=== PATIENT | female | born 1955 | race Caucasian/White ===

== ENCOUNTER 2016-11-18 06:47 | Inpatient (IN) | payer MEDICARE, OTHER, MEDICAID ==
[2016-11-18] MEDS ORDERED: Lactated Ringers 1,000 ML IV SCH ×2 (07:00→11:45)
[2016-11-18] MEDS ORDERED: Gentamicin 40 MG/ML 2 ML Vial ONE (07:13)
[2016-11-18] MEDS ORDERED: Ropivacaine 49.25 ML, Ketorolac 30 MG, EPINEPHrine 0.5 MG, cloNIDine 80 MCG, Sodium Chl... INJECT SCH ×5 (07:45)
[2016-11-18] MEDS ORDERED: Povidone-Iodine 10% Soln 118.25 ML Bottle ONE (07:47)
[2016-11-18] MEDS ORDERED: Midazolam 1 MG/ML 2 ML SDV ONE (08:17)
[2016-11-18] MEDS ORDERED: Propofol 200 MG/20 ML SDV ONE (08:17)
[2016-11-18] MEDS ORDERED: fentaNYL 100 MCG/2 ML SDV ONE (08:17)
[2016-11-18] MEDS ORDERED: ceFAZolin 2 GM in Premix Bag 1 BAG IV ONE (08:30)
[2016-11-18] MEDS ORDERED: Succinylcholine/Normal Saline 200 MG/10 ML Syringe ONE (09:03)
[2016-11-18] MEDS ORDERED: Ondansetron 4 MG/2 ML SDV ONE (09:03)
[2016-11-18] MEDS ORDERED: Neostigmine Methylsulfate 1 MG/ML 5 ML Syringe ONE (09:03)
[2016-11-18] MEDS ORDERED: Dexamethasone 4 MG/ML SDV ONE (09:03)
[2016-11-18] MEDS ORDERED: Rocuronium 50 MG/5 ML Vial ONE (09:03)
[2016-11-18] MEDS: Tranexamic Acid 1,000 MG in Sodium Chloride 0.9% 50 ML IV SCH ×2 (09:15→11:35)
[2016-11-18] MEDS ORDERED: ePHEDrine 50 MG/ML SDV ONE (09:17)
[2016-11-18] MEDS ORDERED: fentaNYL 250 MCG/5 ML SDV ONE ×2 (09:28→10:39)
[2016-11-18] MEDS ORDERED: Lactated Ringers 1,000 ML ONE (10:58)
[2016-11-18] MEDS ORDERED: Magnesium Hydroxide 400 MG/5 ML Susp 30 ML Cup PO PRN ×2 (11:33→12:48)
[2016-11-18] MEDS ORDERED: Acetaminophen/oxyCODONE 325-5 MG Tab PO PRN ×2 (11:33→12:48)
[2016-11-18] MEDS ORDERED: Zolpidem 5 MG Tab PO PRN ×2 (11:33→12:48)
[2016-11-18] MEDS ORDERED: traMADol 50 MG Tab PO PRN (11:33)
[2016-11-18] MEDS ORDERED: diphenhydrAMINE 50 MG/ML SDV IVPUSH PRN ×2 (11:33→12:48)
[2016-11-18] MEDS ORDERED: Sennosides 8.6 MG Tab PO PRN ×2 (11:33→12:48)
[2016-11-18] MEDS ORDERED: Morphine 2 MG/ML Syringe IVPUSH PRN ×2 (11:33→12:48)
[2016-11-18] MEDS ORDERED: Bisacodyl 5 MG Tab PO PRN ×2 (11:33→12:48)
[2016-11-18] MEDS ORDERED: Ketorolac 30 MG/ML SDV IVPUSH PRN (11:33)
[2016-11-18] MEDS ORDERED: Aluminum Hydroxide/Magnesium Hydroxide/Simethicone Susp 30 ML Cup PO PRN ×2 (11:33→12:48)
[2016-11-18] MEDS ORDERED: Ondansetron 4 MG/2 ML SDV IVPUSH PRN ×2 (11:33→12:48)
[2016-11-18] MEDS ORDERED: Naloxone 0.4 MG/ML SDV IVPUSH PRN ×2 (11:33)
[2016-11-18] MEDS ORDERED: Docusate Sodium 100 MG Cap PO PRN ×2 (11:33→12:48)
[2016-11-18] MEDS ORDERED: fentaNYL 100 MCG/2 ML SDV IVPUSH ONE (11:55)
[2016-11-18] MEDS ORDERED: ceFAZolin 2 GM in Premix Bag 1 BAG IV SCH (12:00)
[2016-11-18] MEDS: Ketorolac 30 MG/ML SDV IVPUSH PRN ×2 (13:38→23:05)
--- NOTE | 2016-11-18 13:39 | CR ---
Knee 1V or 2V Rt HISTORY: POST TOTAL KNEE FINDINGS: Since the exam of 11/10/2016 there is replacement of a right total knee arthroplasty with p atellar resurfacing. Position and alignment are satisfactory. No complication is seen. Air in the uziel int is consistent with the postoperative state. Bony structures are osteopenic. IMPRESSION: Satisfactory postoperative position and alignment status post right total knee arthropla sty.
[2016-11-18] MEDS: traMADol 50 MG Tab PO PRN (14:54)
[2016-11-18] MEDS: ceFAZolin 2 GM in Sodium Chloride 0.9% 50 ML IV SCH ×2 (16:37→23:05)
--- NOTE | 2016-11-18 18:34 | PCM.CONS ---
H&P History of Present Illness - General Date of Service: 11/18/16 Admit Problem/Dx: Admission Diagnosis/Problem Admission Diagnosis/Problem Knee pain Source of Information: Patient, Provider, RN notes reviewed History Limitations: Reports: No limitations - History of Present Illness Initial Comments - Free Text/Narative: Ms. Menchaca is a 61-year-old woman who underwent a total right knee arthroplasty done earlier today by Dr. Lamar. She's done well during the initial postoperative period, although reports a significant amount of pain in the knee. There've been no symptoms of chest pain or pressure, shortness of breath , nausea or vomiting. Right Knee Pain Score (Numeric/FACES): 9 - Related Data Allergies/Adverse Reactions: Allergies Allergy/AdvReac Type Severity Reaction Status Date / Time acetaminophen Allergy Severe Arrhythmias Verified 11/18/16 07:17 morphine Allergy Severe Vomiting Verified 11/18/16 07:17 naloxone HCl [From Narcan] Allergy Severe Anaphylactic Verified 11/18/16 07:17 Shock adhesive tape Allergy Hives Verified 11/18/16 07:17 epinephrine Allergy Other Verified 11/18/16 14:58 [From Xylocaine-Epinephrine] erythromycin base Allergy Other Verified 11/18/16 07:17 lidocaine Allergy Other Verified 11/18/16 14:58 [From Xylocaine-Epinephrine] Home Medications: Home Meds lamoTRIgine [Lamictal] 200 mg PO DAILY 05/19/13 [History] amLODIPine [Norvasc] 2.5 mg PO DAILY 09/22/14 [History] Biotin 10 mg PO DAILY 01/31/16 [History] Naproxen Sodium [Aleve] 2 tab PO BID 01/31/16 [History] FLUoxetine [PROzac] 80 mg PO DAILY 06/16/16 [History] traZODone 50 mg PO ASDIRECTED PRN 06/16/16 [History] Chrom Blayne/Brindal Platt [Garcinia Cambogia Tablet] 1 each PO BID 11/14/16 [ History] LORazepam [Ativan] 1 mg PO ASDIRECTED PRN 11/14/16 [History] Pravastatin [Pravachol] 20 mg PO DAILY 11/14/16 [History] traMADol [Ultram] 50 mg PO DAILY PRN 11/14/16 [History] Aspirin [Ecotrin] 325 mg PO BID tab.ec 11/18/16 [Rx] Past Medical History HEENT History: Reports: Impaired vision Cardiovascular History: Reports: Arrhythmia, Blood clots/VTE/DVT, High cholesterol, Hypertension, SOB on exertion, Other (see below) Other Cardiovascular History: PE Respiratory History: Reports: Bronchitis, recurrent, PE, Pneumonia, recurrent, Sleep apnea, SOB Other Respiratory History: PE Gastrointestinal History: Reports: Bowel obstruction, Chronic constipation, Diverticulosis Genitourinary History: Reports: UTI, recurrent [employer] History: Reports: 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 uterine bleeding, , Spontaneous Musculoskeletal History: Reports: Fracture, Osteoarthritis Neurological History: Reports: Cerebral aneurysms, Concussion, CVA, Headaches, chronic, Migraines, Seizure Psychiatric History: Reports: Anxiety, Depression, Panic attack, Psych Hospitalization(s), Suicide attempt Endocrine/Metabolic History: Reports: Obesity/BMI 30+ Hematologic History: Reports: Anemia, Iron deficiency Dermatologic History: Reports: Urticaria - Infectious Disease History Infectious Disease History: Reports: Chicken pox, Measles, Mumps - Past Surgical History HEENT Surgical History: Reports: Tonsillectomy Cardiovascular Surgical History: Reports: Other (see below) Other Cardiovascular Surgeries/Procedures: angiogram Respiratory Surgical History: Reports: None GI Surgical History: Reports: Colonoscopy, EGD Female Surgical History: Reports: section, Hysterectomy, Salpingo- oophorectomy Endocrine Surgical History: Reports: None Neurological Surgical History: Reports: Other (see below) Other Neurological Surgeries/Procedures: x5 aneurysm clips in brain Musculoskeletal Surgical History: Reports: Carpal tunnel, Knee replacement Social & Family History - Tobacco Use Smoking Status *Q: Never Smoker Second Hand Smoke Exposure: No - Caffeine Use Caffeine Use: Reports: Coffee, Soda - Alcohol Use Days Per Week of Alcohol Use: 0 - Recreational Drug Use Recreational Drug Use: No H&P Review of Systems - Review of Systems: Review Of Systems: See Below General: Denies: fever, chills, weakness HEENT: Reports: no symptoms Pulmonary: Reports: No Symptoms Cardiovascular: Reports: no symptoms Gastrointestinal: Reports: No symptoms Genitourinary: Reports: no symptoms Musculoskeletal: Reports: leg pain, joint pain Skin: Reports: no symptoms Psychiatric: Reports: no symptoms Neurological: Reports: No Symptoms Hematologic/Lymphatic: Reports: no symptoms Immunologic: Reports: no symptoms Exam - Exam Exam: See Below - Vital Signs Vital Signs: Last Vital Signs Temp 99.0 F 11/18/16 15:15 Pulse 86 11/18/16 15:15 Resp 18 11/18/16 15:15 BP 122/68 11/18/16 15:15 Pulse Ox 93 L 11/18/16 15:15 Weight: 279 lb 2 oz - Exam Quality Assessment: DVT prophylaxis General: alert, oriented, cooperative, mild distress Neck: supple, trachea midline, +2 carotid pulse wo bruit Lungs: Clear to auscultation, Normal respiratory effort Cardiovascular: regular rate, regular rhythm, normal S1, normal S2. No: systolic murmur, diastolic murmur Abdomen: normal bowel sounds, soft Skin: warm, dry, intact - Patient Data Lab Results last 24 hrs: Laboratory Results - last 24 hr 11/18/16 Range/Units 07:00 Blood Type O POSITIVE Gel Antibody Screen Negative Consult PN Assessment/Plan Procedures: Procedures ASSAY OF AMYLASE (09/22/14) ASSAY OF LIPASE (10/16/15) BLOOD TYPING SEROLOGIC ABO (11/10/16) BLOOD TYPING SEROLOGIC RH(D) (11/10/16) COMP SCREEN MAMMOGRAM ADD-ON (01/10/16) COMPLETE CBC W/AUTO DIFF WBC (11/10/16) COMPREHEN METABOLIC PANEL (11/10/16) CT ABD & PELVIS W/O CONTRAST (10/16/15) CT HEAD/BRAIN W/O DYE (09/22/14) CULTURE OTHR SPECIMN AEROBIC (11/10/16) EMERGENCY DEPT VISIT (06/16/16) EMERGENCY DEPT VISIT (10/16/15) EMERGENCY DEPT VISIT (09/22/14) EMERGENCY DEPT VISIT (09/22/14) EMERGENCY DEPT VISIT (05/19/13) EXTREMITY STUDY (05/19/13) RBC ANTIBODY SCREEN (11/10/16) ROUTINE VENIPUNCTURE (11/10/16) SKIN FULL GRAFT TRUNK (02/01/16) SMEAR GRAM STAIN (02/17/16) SPECIAL STAINS GROUP 1 (02/01/16) THER/PROPH/DIAG INJ SC/IM (10/16/15) TISSUE EXAM BY PATHOLOGIST (02/01/16) URINALYSIS AUTO W/O SCOPE (11/10/16) URINALYSIS AUTO W/SCOPE (10/16/15) WOUND PREP TRK/ARM/LEG (02/01/16) X-RAY EXAM OF ANKLE (06/16/16) X-RAY EXAM OF KNEE 3 (11/10/16) Problem List Initiated/Reviewed/Updated: Yes My Orders last 24 hours: My Active Orders 11/19/16 09:00 Biotin [Biotin] 10 mg PO DAILY FLUoxetine [PROzac] 80 mg PO DAILY Pravastatin [Pravachol] 20 mg PO DAILY amLODIPine [Norvasc] 2.5 mg PO DAILY lamoTRIgine [Lamictal] 200 mg PO DAILY Plan: ASSESSMENT AND PLAN STATUS POST TOTAL RIGHT KNEE ARTHROPLASTY-she's done well during the initial postoperative period -Postoperative care per Dr. Lamar HYPERTENSION -Continue outpatient medical regimen HISTORY OF DVT -DVT prophylaxis per Dr. Lamar Requesting Provider: YESICA Date Consult Requested: 11/18/16 Reason for Consult: Hospitalist consult for medical management, following RTKA Patient History Reviewed: Yes
[2016-11-18] MEDS: Lactated Ringers 1,000 ML IV SCH (19:23)
[2016-11-18] MEDS: Aspirin 325 MG Tab.EC PO SCH (20:06)
[2016-11-18] MEDS: fentaNYL 100 MCG/2 ML SDV IVPUSH PRN (20:07)
[2016-11-18] MEDS ORDERED: Aspirin 325 MG Tab.EC PO SCH (21:00)
[2016-11-19] MEDS: fentaNYL 100 MCG/2 ML SDV IVPUSH PRN ×2 (04:14→10:27)
[2016-11-19] MEDS: Lactated Ringers 1,000 ML IV SCH (05:58)
[2016-11-19] MEDS: traMADol 50 MG Tab PO PRN ×2 (08:14→17:32)
[2016-11-19] MEDS ORDERED: Sodium Chloride 0.9% 10 ML Syringe FLUSH SCH (09:00)
[2016-11-19] MEDS: ceFAZolin 2 GM in Sodium Chloride 0.9% 50 ML IV SCH (09:01)
[2016-11-19] MEDS: FLUoxetine 20 MG Cap PO SCH (09:02)
[2016-11-19] MEDS: lamoTRIgine 100 MG Tab PO SCH (09:02)
[2016-11-19] MEDS: Pravastatin 20 MG Tab PO SCH (09:02)
[2016-11-19] MEDS: Aspirin 325 MG Tab.EC PO SCH ×2 (09:03→20:38)
[2016-11-19] MEDS: amLODIPine 5 MG Tab PO SCH (09:03)
[2016-11-19] MEDS: BIOTIN 10 MG PO SCH (09:04)
[2016-11-19] MEDS: Sodium Chloride 0.9% 10 ML Syringe FLUSH SCH (09:04)
[2016-11-19] MEDS: Ketorolac 30 MG/ML SDV IVPUSH PRN ×2 (12:44→20:38)
--- NOTE | 2016-11-19 13:24 | PCM.CONSN ---
- General Info Date of Service: 11/19/16 Functional Status: Reports: pain controlled, tolerating diet, ambulating, urinating - Review of Systems General: Denies: Fever, Weakness, Chills Pulmonary: Reports: no symptoms Cardiovascular: Reports: No Symptoms Gastrointestinal: Reports: No symptoms Systems Review Comment:: This patient has remained stable status post total knee arthroplasty done yesterday by Dr. Lamar. Vital signs have been stable and she has remained afebrile. - Patient Data Vitals - most recent: Last Vital Signs Temp 99.8 F 11/19/16 11:00 Pulse 76 11/19/16 11:00 Resp 18 11/19/16 11:00 BP 101/60 11/19/16 11:00 Pulse Ox 98 11/19/16 11:00 Weight - most recent: 279 lb 2 oz I&O - last 24 hours: Intake & Output 11/18/16 11/19/16 11/19/16 22:59 06:59 14:59 Intake Total 922 1091 650 Output Total 650 1650 400 Balance 272 -559 250 Lab Results last 24 hrs: Laboratory Results - last 24 hr 11/19/16 11/19/16 Range/Units 05:01 05:02 WBC 13.1 H (4.5-11.0) K/uL RBC 4.08 (3.30-5.50) M/uL Hgb 11.4 L D (12.0-15.0) g/dL Hct 35.3 L (36.0-48.0) % MCV 87 (80-98) fL MCH 28 (27-31) pg MCHC 32 (32-36) % Plt Count 203 (150-400) K/uL Neut % (Auto) 78 H (36-66) % Lymph % (Auto) 13 L (24-44) % Whitman % (Auto) 9 H (2-6) % Eos % (Auto) 0 L (2-4) % Baso % (Auto) 0 (0-1) % Sodium 143 (140-148) mmol/L Potassium 4.3 (3.6-5.2) mmol/L Chloride 109 H (100-108) mmol/L Carbon Dioxide 29 (21-32) mmol/L Anion Gap 9.3 (5.0-14.0) mmol/L BUN 9 (7-18) mg/dL Creatinine 0.8 (0.6-1.0) mg/dL Est Cr Clr Drug Dosing 60.29 mL/min Estimated GFR (MDRD) > 60 (>60) Glucose 115 H (74-106) mg/dL Calcium 8.4 L (8.5-10.1) mg/dL Total Bilirubin 0.3 (0.2-1.0) mg/dL AST 16 (15-37) U/L ALT 15 (12-78) U/L Alkaline Phosphatase 83 (46-116) U/L Total Protein 5.6 L (6.4-8.2) g/dL Albumin 2.8 L (3.4-5.0) g/dL Globulin 2.8 (2.3-3.5) g/dL Albumin/Globulin Ratio 1.0 L (1.2-2.2) Med Orders - Current: Current Medications Al Hydroxide/Mg Hydroxide (Mag-Al Plus) 30 ml PO Q4H PRN PRN Reason: Constipation Amlodipine Besylate (Norvasc) 2.5 mg PO DAILY [facility] Last Admin: 11/19/16 09:03 Dose: 2.5 mg Aspirin (Ecotrin) 325 mg PO BID [facility] Last Admin: 11/19/16 09:03 Dose: 325 mg Bisacodyl (Dulcolax) 10 mg PO DAILY PRN PRN Reason: Constipation Diazepam (Valium) 5 mg IVPUSH Q6H PRN PRN Reason: Spasms Diphenhydramine HCl (Benadryl) 25 mg IVPUSH Q4H PRN PRN Reason: Itching Last Admin: 11/18/16 23:05 Dose: 25 mg Docusate Sodium (Colace) 100 mg PO BID PRN PRN Reason: Constipation Fentanyl (Sublimaze) 50 mcg IVPUSH Q6H PRN PRN Reason: Pain (severe 7-10) Last Admin: 11/19/16 10:27 Dose: 50 mcg Fluoxetine HCl (Prozac) 80 mg PO DAILY [facility] Last Admin: 11/19/16 09:02 Dose: 80 mg Ketorolac Tromethamine (Toradol) 30 mg IVPUSH Q8H PRN PRN Reason: Pain Stop: 11/23/16 11:33 Last Admin: 11/19/16 12:44 Dose: 30 mg Lamotrigine (Lamotrigine) 200 mg PO DAILY [facility] Last Admin: 11/19/16 09:02 Dose: 200 mg Magnesium Hydroxide (Milk Of Magnesia) 30 ml PO BID PRN PRN Reason: Constipation Ondansetron HCl (Zofran) 8 mg IVPUSH Q4H PRN PRN Reason: Nausea/Vomiting Biotin [Biotin] 10 (MgPom) 0 each PO DAILY [facility] Last Admin: 11/19/16 09:04 Dose: Not Given Pravastatin Sodium (Pravachol) 20 mg PO DAILY [facility] Last Admin: 11/19/16 09:02 Dose: 20 mg Senna (Senna) 8.6 mg PO BID PRN PRN Reason: Constipation Sodium Chloride (Saline Flush) 10 ml FLUSH DAILY [facility] Last Admin: 11/19/16 09:04 Dose: 10 ml Tramadol HCl (Ultram) 100 mg PO Q6H PRN PRN Reason: Pain Last Admin: 11/19/16 08:14 Dose: 100 mg Zolpidem Tartrate (Ambien) 5 mg PO BEDTIME PRN PRN Reason: Sleep Discontinued Medications Al Hydroxide/Mg Hydroxide (Mag-Al Plus) 30 ml PO Q4H PRN PRN Reason: Constipation Aspirin (Ecotrin) 325 mg PO BID [facility] Bisacodyl (Dulcolax) 10 mg PO DAILY PRN PRN Reason: Constipation Dexamethasone (Dexamethasone) Confirm Administered Dose 4 mg .ROUTE .STK-MED ONE Stop: 11/18/16 09:04 Diazepam (Valium) 5 mg IVPUSH Q6H PRN PRN Reason: Spasms Diphenhydramine HCl (Benadryl) 25 mg IVPUSH Q4H PRN PRN Reason: Itching Docusate Sodium (Colace) 100 mg PO BID PRN PRN Reason: Constipation Ephedrine Sulfate (Ephedrine Sulfate) Confirm Administered Dose 50 mg .ROUTE .STK-MED ONE Stop: 11/18/16 09:18 Fentanyl (Sublimaze) Confirm Administered Dose 100 mcg .ROUTE .STK-MED ONE Stop: 11/18/16 08:18 Fentanyl (Sublimaze) Confirm Administered Dose 250 mcg .ROUTE .STK-MED ONE Stop: 11/18/16 09:29 Fentanyl (Sublimaze) Confirm Administered Dose 250 mcg .ROUTE .STK-MED ONE Stop: 11/18/16 10:40 Fentanyl (Sublimaze) 100 mcg IVPUSH ONETIME ONE Stop: 11/18/16 11:56 Last Admin: 11/18/16 11:52 Dose: 50 mcg Gentamicin Sulfate (Gentamicin) Confirm Administered Dose 240 mg .ROUTE .STK- MED ONE Stop: 11/18/16 07:14 Last Admin: 11/18/16 09:50 Dose: 240 mg Glycopyrrolate () Confirm Administered Dose 1 mg .ROUTE .STK-MED ONE Stop: 11/18/16 09:04 Cefazolin Sodium/Dextrose 2 gm (/ Premix) 50 mls @ 100 mls/hr IV ONETIME ONE Stop: 11/18/16 08:59 Last Admin: 11/18/16 09:05 Dose: 100 mls/hr Lactated Ringer's (Ringers, Lactated) 1,000 mls @ 0 mls/hr IV ASDIRECTED [facility] PRN Reason: KVO Last Admin: 11/18/16 07:58 Dose: 25 mls/hr Tranexamic Acid 1,000 mg/ (Sodium Chloride) 60 mls @ 200 mls/hr IV Q3H [facility] Stop: 11/18/16 11:17 Last Admin: 11/18/16 11:35 Dose: 200 mls/hr Lactated Ringer's (Ringers, Lactated) Confirm Administered Dose 1,000 mls @ as directed .ROUTE .K-MED ONE Stop: 11/18/16 10:59 Lactated Ringer's (Ringers, Lactated) 1,000 mls @ 100 mls/hr IV ASDIRECTED [facility] Cefazolin Sodium/Dextrose 2 gm (/ Premix) 50 mls @ 100 mls/hr IV Q8H [facility] Stop: 11/19/16 04:29 Lactated Ringer's (Ringers, Lactated) 1,000 mls @ 100 mls/hr IV ASDIRECTED [facility] Last Admin: 11/19/16 05:58 Dose: 100 mls/hr Cefazolin Sodium 2 gm/ Sodium (Chloride) 50 mls @ 100 mls/hr IV Q8H [facility] Stop: 11/19/16 08:29 Last Admin: 11/19/16 09:01 Dose: 100 mls/hr Ketorolac Tromethamine (Toradol) 30 mg IVPUSH Q8H PRN PRN Reason: Pain Stop: 11/23/16 11:33 Magnesium Hydroxide (Milk Of Magnesia) 30 ml PO BID PRN PRN Reason: Constipation Midazolam HCl (Versed 1 Mg/Ml) Confirm Administered Dose 2 mg .ROUTE .STK-MED ONE Stop: 11/18/16 08:18 Morphine Sulfate (Morphine) 2 mg IVPUSH Q2H PRN PRN Reason: Pain Morphine Sulfate (Morphine) 2 mg IVPUSH Q2H PRN PRN Reason: Pain Naloxone HCl (Narcan) 0.1 mg IVPUSH ONETIME PRN PRN Reason: Oversedation Stop: 11/18/16 11:34 Naloxone HCl (Narcan) 0.1 mg IVPUSH ONETIME PRN PRN Reason: Oversedation Stop: 11/18/16 11:34 Neostigmine Methylsulfate (Neostigmine) Confirm Administered Dose 5 mg .ROUTE .STK-MED ONE Stop: 11/18/16 09:04 Ondansetron HCl (Zofran) Confirm Administered Dose 4 mg .ROUTE .STK-MED ONE Stop: 11/18/16 09:04 Ondansetron HCl (Zofran) 8 mg IVPUSH Q4H PRN PRN Reason: Nausea/Vomiting Oxycodone/Acetaminophen (Percocet 325-5 Mg) 2 tab PO Q4H PRN PRN Reason: Pain Oxycodone/Acetaminophen (Percocet 325-5 Mg) 2 tab PO Q4H PRN PRN Reason: Pain Povidone Iodine (Betadine 10% Soln) Confirm Administered Dose 1 ml .ROUTE .STK- MED ONE Stop: 11/18/16 07:48 Propofol (Diprivan 20 Ml) Confirm Administered Dose 200 mg .ROUTE .STK-MED ONE Stop: 11/18/16 08:18 Rocuronium [place] (Zemuron) Confirm Administered Dose 50 mg .ROUTE .STK-MED ONE Stop: 11/18/16 09:04 Senna (Senna) 8.6 mg PO BID PRN PRN Reason: Constipation Sodium Chloride (Saline Flush) 10 ml FLUSH DAILY [facility] Succinylcholine Chloride (Succinylcholine In Ns Pf) Confirm Administered Dose 200 mg .ROUTE .STK-MED ONE Stop: 11/18/16 09:04 Tramadol HCl (Ultram) 100 mg PO Q6H PRN PRN Reason: Pain Zolpidem Tartrate (Ambien) 5 mg PO BEDTIME PRN PRN Reason: Sleep - Exam Quality Assessment: DVT prophylaxis General: alert, oriented, cooperative, mild distress Lungs: Clear to auscultation, Normal respiratory effort Cardiovascular: Regular Rate, Regular Rhythm, No Murmurs Abdomen: bowel sounds present, soft, no tenderness, no distension Extremities: no edema Skin: warm, dry, intact Consult PN Assessment/Plan Procedures: Procedures ASSAY OF AMYLASE (09/22/14) ASSAY OF LIPASE (10/16/15) BLOOD TYPING SEROLOGIC ABO (11/10/16) BLOOD TYPING SEROLOGIC RH(D) (11/10/16) COMP SCREEN MAMMOGRAM ADD-ON (01/10/16) COMPLETE CBC W/AUTO DIFF WBC (11/10/16) COMPREHEN METABOLIC PANEL (11/10/16) CT ABD & PELVIS W/O CONTRAST (10/16/15) CT HEAD/BRAIN W/O DYE (09/22/14) CULTURE OTHR SPECIMN AEROBIC (11/10/16) ELECTROCARDIOGRAM TRACING (11/11/16) EMERGENCY DEPT VISIT (06/16/16) EMERGENCY DEPT VISIT (10/16/15) EMERGENCY DEPT VISIT (09/22/14) EMERGENCY DEPT VISIT (09/22/14) EMERGENCY DEPT VISIT (05/19/13) EXTREMITY STUDY (05/19/13) RBC ANTIBODY SCREEN (11/10/16) ROUTINE VENIPUNCTURE (11/10/16) SKIN FULL GRAFT TRUNK (02/01/16) SMEAR GRAM STAIN (02/17/16) SPECIAL STAINS GROUP 1 (02/01/16) THER/PROPH/DIAG INJ SC/IM (10/16/15) TISSUE EXAM BY PATHOLOGIST (02/01/16) URINALYSIS AUTO W/O SCOPE (11/10/16) URINALYSIS AUTO W/SCOPE (10/16/15) WOUND PREP TRK/ARM/LEG (02/01/16) X-RAY EXAM OF ANKLE (06/16/16) X-RAY EXAM OF KNEE 3 (11/10/16) Problem List Initiated/Reviewed/Updated: Yes My Orders last 24 hours: My Active Orders 11/19/16 09:00 FLUoxetine [PROzac] 80 mg PO DAILY Patient's Own Medication [Ptom] 0 each PO DAILY Pravastatin [Pravachol] 20 mg PO DAILY amLODIPine [Norvasc] 2.5 mg PO DAILY lamoTRIgine 200 mg PO DAILY 11/19/16 13:21 Convert IV to Saline Lock [OM.PC] Routine 11/20/16 05:00 BASIC METABOLIC PANEL,BMP [CHEM] Timed Plan: ASSESSMENT AND PLAN STATUS POST TOTAL RIGHT KNEE ARTHROPLASTY-she's done well during the initial postoperative period -Postoperative care per Dr. Lamar HYPERTENSION-blood pressure has remained stable -Continue outpatient medical regimen HISTORY OF DVT -DVT prophylaxis per Dr. Lamar
[2016-11-20] MEDS: traMADol 50 MG Tab PO PRN ×3 (02:03→13:00)
[2016-11-20] MEDS: Ketorolac 30 MG/ML SDV IVPUSH PRN (04:38)
[2016-11-20] MEDS: lamoTRIgine 100 MG Tab PO SCH (08:08)
[2016-11-20] MEDS: Aspirin 325 MG Tab.EC PO SCH (08:08)
[2016-11-20] MEDS: amLODIPine 5 MG Tab PO SCH (08:10)
[2016-11-20] MEDS: Pravastatin 20 MG Tab PO SCH (08:12)
[2016-11-20 10:55] VITALS: BP 109/81
[2016-11-20] MEDS: Sodium Chloride 0.9% 10 ML Syringe FLUSH SCH (11:02)
[2016-11-20] MEDS: FLUoxetine 20 MG Cap PO SCH (11:02)
[2016-11-20] MEDS: BIOTIN 10 MG PO SCH (11:02)
[2016-11-20] MEDS: fentaNYL 100 MCG/2 ML SDV IVPUSH PRN (11:12)
--- NOTE | 2016-11-20 13:00 | PCM.DCSUM1 ---
Discharge Summary - Hospital Course Brief History: Ms. Menchaca is a 61-year-old woman who was admitted by Dr. Juni Lamar on November 18, for a total right knee arthroplasty. - Discharge Data Discharge Date: 11/20/16 Discharge Disposition: Home, Self-Care 01 Condition: Fair - Discharge Diagnosis/Problem(s) (1) Status post total right knee replacement SNOMED Code(s): 1702078455110 ICD Code: Z96.651 - PRESENCE OF RIGHT ARTIFICIAL KNEE JOINT Status: Acute Current Visit: Yes (2) Primary osteoarthritis of right knee SNOMED Code(s): 885940779, 524055876 ICD Code: M17.11 - UNILATERAL PRIMARY OSTEOARTHRITIS, RIGHT KNEE Status: Acute Current Visit: No - Patient Summary/Data Consults: Consultations 11/18/16 11:33 Consult to Physician [CONS] Routine Consulting Provider: Alex Jimenez Call Completed to Consulting Physician: Yes OT Evaluation and Treatment [CONS] Routine Please Evaluate and Treat. OT Reason for Consult: Strengthening This query below is only for informational purposes and is not editable. PT Evaluation and Treatment [CONS] Routine Please Evaluate and Treat. PT Reason for Consult: Strengthening This query below is only for informational purposes and is not editable. Hospital Course: Ms. Menchaca is a 61-year-old woman who had ongoing difficulty with severe osteoarthritis of her right knee. She was admitted to this facility on ThursdayNovember 18 and underwent a total right knee arthroplasty performed by Dr. Juni Lamar. She was initially given IV fluids and IV pain medication for management of her pain. She was stable during the postoperative period with no significant complications. She was seen daily by physical therapy and was ambulating in the halls with assistance prior to discharge. She's going to be discharged to the assisted for restorative physical therapy and occupational therapy. Activity will be as tolerated and she will resume her usual diet. Followup appointment will be scheduled with the orthopedic service for December 04. - Patient Instructions Diet: Usual Diet as Tolerated Activity: As Tolerated Other/Special Instructions: MARBIN glass w/ J Mona 12/04. Ambulate 4x daily. PT and OT daily. - Discharge Plan Prescriptions/Med Rec: traMADol [Ultram] 50 mg PO Q6H PRN #90 tablet PRN Reason: Pain Home Medications: Home Meds lamoTRIgine [Lamictal] 200 mg PO DAILY 05/19/13 [History] amLODIPine [Norvasc] 2.5 mg PO DAILY 09/22/14 [History] Biotin 10 mg PO DAILY 01/31/16 [History] Naproxen Sodium [Aleve] 2 tab PO BID 01/31/16 [History] FLUoxetine [PROzac] 80 mg PO DAILY 06/16/16 [History] traZODone 50 mg PO ASDIRECTED PRN 06/16/16 [History] Chrom Blayne/Brindal Platt [Garcinia Cambogia Tablet] 1 each PO BID 11/14/16 [ History] Pravastatin [Pravachol] 20 mg PO DAILY 11/14/16 [History] Aspirin [Ecotrin] 325 mg PO BID tab.ec 11/18/16 [Rx] LORazepam [Ativan] 1 mg PO BEDTIME PRN #30 11/20/16 [Rx] traMADol [Ultram] 50 mg PO Q6H PRN #90 tablet 11/20/16 [Rx] Referrals: Mohamud Lamar DO [Physician] - (She is to follow up in 2 weeks and appointment card was left in the chart to give to patient on discharge. ) - Patient Data Vitals - Most Recent: Last Vital Signs Temp 99.3 F 11/20/16 10:53 Pulse 70 11/20/16 10:53 Resp 18 11/20/16 10:53 BP 109/81 11/20/16 10:53 Pulse Ox 95 11/20/16 10:53 Weight - Most Recent: 279 lb 2 oz I&O - Last 24 hours: Intake & Output 11/19/16 11/20/16 11/20/16 22:59 06:59 14:59 Intake Total 740 400 480 Output Total 5278 022 1017 Balance -310 400 770 Lab Results - Last 24 hrs: Laboratory Results - last 24 hr 11/20/16 11/20/16 Range/Units 05:00 05:15 WBC 9.6 (4.5-11.0) K/uL RBC 4.00 (3.30-5.50) M/uL Hgb 11.1 L (12.0-15.0) g/dL Hct 35.0 L (36.0-48.0) % MCV 88 (80-98) fL MCH 28 (27-31) pg MCHC 32 (32-36) % Plt Count 179 (150-400) K/uL Neut % (Auto) 64 (36-66) % Lymph % (Auto) 25 (24-44) % [place] % (Auto) 9 H (2-6) % Eos % (Auto) 2 (2-4) % Baso % (Auto) 0 (0-1) % Sodium 145 (140-148) mmol/L Potassium 4.0 (3.6-5.2) mmol/L Chloride 110 H (100-108) mmol/L Carbon Dioxide 31 (21-32) mmol/L Anion Gap 8.0 (5.0-14.0) mmol/L BUN 9 (7-18) mg/dL Creatinine 0.7 (0.6-1.0) mg/dL Est Cr Clr Drug Dosing 68.91 mL/min Estimated GFR (MDRD) > 60 (>60) Glucose 104 (74-106) mg/dL Calcium 8.2 L (8.5-10.1) mg/dL Med Orders - Current: Current Medications Al Hydroxide/Mg Hydroxide (Mag-Al Plus) 30 ml PO Q4H PRN PRN Reason: Constipation Amlodipine Besylate (Norvasc) 2.5 mg PO DAILY [facility] Last Admin: 11/20/16 08:10 Dose: 2.5 mg Aspirin (Ecotrin) 325 mg PO BID [facility] Last Admin: 11/20/16 08:08 Dose: 325 mg Bisacodyl (Dulcolax) 10 mg PO DAILY PRN PRN Reason: Constipation Diazepam (Valium) 5 mg IVPUSH Q6H PRN PRN Reason: Spasms Diphenhydramine HCl (Benadryl) 25 mg IVPUSH Q4H PRN PRN Reason: Itching Last Admin: 11/18/16 23:05 Dose: 25 mg Docusate Sodium (Colace) 100 mg PO BID PRN PRN Reason: Constipation Fentanyl (Sublimaze) 50 mcg IVPUSH Q6H PRN PRN Reason: Pain (severe 7-10) Last Admin: 11/20/16 11:12 Dose: 50 mcg Fluoxetine HCl (Prozac) 80 mg PO DAILY [facility] Last Admin: 11/20/16 11:02 Dose: 80 mg Ketorolac Tromethamine (Toradol) 30 mg IVPUSH Q8H PRN PRN Reason: Pain Stop: 11/23/16 11:33 Last Admin: 11/20/16 04:38 Dose: 30 mg Lamotrigine (Lamotrigine) 200 mg PO DAILY [facility] Last Admin: 11/20/16 08:08 Dose: 200 mg Magnesium Hydroxide (Milk Of Magnesia) 30 ml PO BID PRN PRN Reason: Constipation Ondansetron HCl (Zofran) 8 mg IVPUSH Q4H PRN PRN Reason: Nausea/Vomiting Biotin [Biotin] 10 (MgPom) 0 each PO DAILY [facility] Last Admin: 11/20/16 11:02 Dose: 1 each Pravastatin Sodium (Pravachol) 20 mg PO DAILY [facility] Last Admin: 11/20/16 08:12 Dose: 20 mg Senna (Senna) 8.6 mg PO BID PRN PRN Reason: Constipation Sodium Chloride (Saline Flush) 10 ml FLUSH DAILY [facility] Last Admin: 11/20/16 11:02 Dose: 10 ml Tramadol HCl (Ultram) 100 mg PO Q6H PRN PRN Reason: Pain Last Admin: 11/20/16 08:05 Dose: 100 mg Zolpidem Tartrate (Ambien) 5 mg PO BEDTIME PRN PRN Reason: Sleep Discontinued Medications Al Hydroxide/Mg Hydroxide (Mag-Al Plus) 30 ml PO Q4H PRN PRN Reason: Constipation Aspirin (Ecotrin) 325 mg PO BID [facility] Bisacodyl (Dulcolax) 10 mg PO DAILY PRN PRN Reason: Constipation Dexamethasone (Dexamethasone) Confirm Administered Dose 4 mg .ROUTE .STK-MED ONE Stop: 11/18/16 09:04 Diazepam (Valium) 5 mg IVPUSH Q6H PRN PRN Reason: Spasms Diphenhydramine HCl (Benadryl) 25 mg IVPUSH Q4H PRN PRN Reason: Itching Docusate Sodium (Colace) 100 mg PO BID PRN PRN Reason: Constipation Ephedrine Sulfate (Ephedrine Sulfate) Confirm Administered Dose 50 mg .ROUTE .STK-MED ONE Stop: 11/18/16 09:18 Fentanyl (Sublimaze) Confirm Administered Dose 100 mcg .ROUTE .STK-MED ONE Stop: 11/18/16 08:18 Fentanyl (Sublimaze) Confirm Administered Dose 250 mcg .ROUTE .STK-MED ONE Stop: 11/18/16 09:29 Fentanyl (Sublimaze) Confirm Administered Dose 250 mcg .ROUTE .STK-MED ONE Stop: 11/18/16 10:40 Fentanyl (Sublimaze) 100 mcg IVPUSH ONETIME ONE Stop: 11/18/16 11:56 Last Admin: 11/18/16 11:52 Dose: 50 mcg Gentamicin Sulfate (Gentamicin) Confirm Administered Dose 240 mg .ROUTE .STK- MED ONE Stop: 11/18/16 07:14 Last Admin: 11/18/16 09:50 Dose: 240 mg Glycopyrrolate () Confirm Administered Dose 1 mg .ROUTE .STK-MED ONE Stop: 11/18/16 09:04 Cefazolin Sodium/Dextrose 2 gm (/ Premix) 50 mls @ 100 mls/hr IV ONETIME ONE Stop: 11/18/16 08:59 Last Admin: 11/18/16 09:05 Dose: 100 mls/hr Lactated Ringer's (Ringers, Lactated) 1,000 mls @ 0 mls/hr IV ASDIRECTED [facility] PRN Reason: KVO Last Admin: 11/18/16 07:58 Dose: 25 mls/hr Tranexamic Acid 1,000 mg/ (Sodium Chloride) 60 mls @ 200 mls/hr IV Q3H [facility] Stop: 11/18/16 11:17 Last Admin: 11/18/16 11:35 Dose: 200 mls/hr Lactated Ringer's (Ringers, Lactated) Confirm Administered Dose 1,000 mls @ as directed .ROUTE .STK-MED ONE Stop: 11/18/16 10:59 Lactated Ringer's (Ringers, Lactated) 1,000 mls @ 100 mls/hr IV ASDIRECTED [facility] Cefazolin Sodium/Dextrose 2 gm (/ Premix) 50 mls @ 100 mls/hr IV Q8H [facility] Stop: 11/19/16 04:29 Lactated Ringer's (Ringers, Lactated) 1,000 mls @ 100 mls/hr IV ASDIRECTED [facility] Last Admin: 11/19/16 05:58 Dose: 100 mls/hr Cefazolin Sodium 2 gm/ Sodium (Chloride) 50 mls @ 100 mls/hr IV Q8H [facility] Stop: 11/19/16 08:29 Last Admin: 11/19/16 09:01 Dose: 100 mls/hr Ketorolac Tromethamine (Toradol) 30 mg IVPUSH Q8H PRN PRN Reason: Pain Stop: 11/23/16 11:33 Magnesium Hydroxide (Milk Of Magnesia) 30 ml PO BID PRN PRN Reason: Constipation Midazolam HCl (Versed 1 Mg/Ml) Confirm Administered Dose 2 mg .ROUTE .STK-MED ONE Stop: 11/18/16 08:18 Morphine Sulfate (Morphine) 2 mg IVPUSH Q2H PRN PRN Reason: Pain Morphine Sulfate (Morphine) 2 mg IVPUSH Q2H PRN PRN Reason: Pain Naloxone HCl (Narcan) 0.1 mg IVPUSH ONETIME PRN PRN Reason: Oversedation Stop: 11/18/16 11:34 Naloxone HCl (Narcan) 0.1 mg IVPUSH ONETIME PRN PRN Reason: Oversedation Stop: 11/18/16 11:34 Neostigmine Methylsulfate (Neostigmine) Confirm Administered Dose 5 mg .ROUTE .STK-MED ONE Stop: 11/18/16 09:04 Ondansetron HCl (Zofran) Confirm Administered Dose 4 mg .ROUTE .STK-MED ONE Stop: 11/18/16 09:04 Ondansetron HCl (Zofran) 8 mg IVPUSH Q4H PRN PRN Reason: Nausea/Vomiting Oxycodone/Acetaminophen (Percocet 325-5 Mg) 2 tab PO Q4H PRN PRN Reason: Pain Oxycodone/Acetaminophen (Percocet 325-5 Mg) 2 tab PO Q4H PRN PRN Reason: Pain Povidone Iodine (Betadine 10% Soln) Confirm Administered Dose 1 ml .ROUTE .STK- MED ONE Stop: 11/18/16 07:48 Propofol (Diprivan 20 Ml) Confirm Administered Dose 200 mg .ROUTE .STK-MED ONE Stop: 11/18/16 08:18 Rocuronium [place] (Zemuron) Confirm Administered Dose 50 mg .ROUTE .STK-MED ONE Stop: 11/18/16 09:04 Senna (Senna) 8.6 mg PO BID PRN PRN Reason: Constipation Sodium Chloride (Saline Flush) 10 ml FLUSH DAILY [facility] Succinylcholine Chloride (Succinylcholine In Ns Pf) Confirm Administered Dose 200 mg .ROUTE .STK-MED ONE Stop: 11/18/16 09:04 Tramadol HCl (Ultram) 100 mg PO Q6H PRN PRN Reason: Pain Zolpidem Tartrate (Ambien) 5 mg PO BEDTIME PRN PRN Reason: Sleep *Q Meaningful Use (DIS) - VTE *Q VTE Criteria *Q: - Stroke *Q Stroke Criteria *Q: - AMI *Q AMI Criteria *Q:
--- NOTE | 2016-11-25 21:10 | OR ---
DATE OF PROCEDURE: 11/18/2016 PREOPERATIVE DIAGNOSIS: Right knee primary osteoarthritis. POSTOPERATIVE DIAGNOSIS: Right knee primary osteoarthritis. PROCEDURE: Right total knee arthroplasty. INDUSTRIAL ECONOMIST: Roseline Dunn NP. ANESTHESIA: General anesthesia. FLUID: Lactated Ringer solution. ESTIMATED BLOOD LOSS: 150 mL. COMPLICATIONS: None. SPECIMEN: None. DISCHARGE DISPOSITION: Stable to PACU. INDICATIONS FOR THE PROCEDURE: The patient was seen preoperatively in the clinic. She previously had multimodal non operative treatment including physical therapy as well as corticosteroid injections into the knee, this was affecting her activities of daily living. Preoperative imaging confirmed the above-mentioned diagnosis. Risks and benefits of the procedure were explained to the patient and informed consent was obtained. DETAILS OF PROCEDURE: The patient was seen preoperatively by myself, Anesthesia staff in the preoperative holding area where the operative site was marked. She was brought to the operative suite by the anesthesia staff where general anesthesia was administered. All extremities were found to be well padded. A well-padded tourniquet was placed on the right thigh. The right lower extremity was then prepped and draped in a sterile manner. Time-out was called identifying the correct patient, correct procedure, the correct site, and antibiotics had begun within appropriate period of time. The right lower extremity was then exsanguinated. Tourniquet was raised to 300 mmHg for 58 minutes and taken down after cementing. A midline incision was made 3 fingerbreadths proximal to the patella down to the level of the tibial tubercle. A medial parapatellar arthrotomy was made. Bleeding was controlled with Bovie electrocautery as well as an Aquamantys unit. The full synovectomy was performed using the cautery unit and bleeding was controlled with Bovie electrocautery and an Aquamantys unit. The patella was then everted. The knee flexed and then the patella was then cut with a saw. This was measured to be 35 mm diameter. We then drilled our holes for the trial and placed our trial. We then flexed the knee up again and then placed medial and lateral Homans on each side of the femur, and then reamed the distal femoral canal. I then inserted the intramedullary guide and then made my distal cut. I then used the posterior condylar guide which showed a size 7 femur and then drilled the holes for the chamfer block. I then removed the guide and placed the chamfer block and then made my anterior and posterior chamfer cuts. After this had been completed, we focused on tibial preparation by removing as much as I could of the medial and lateral meniscus as well as the anterior and posterior cruciate ligaments. I then anteriorized the tibia using a blunt Hohmann and then protecting the medial collateral ligament with a zero retractor and lateral collateral ligament with a sharp Hohmann. I used an extramedullary guide for measuring tibial thickness to cut. I then made this in line with the tibial tubercle as well as the 2nd metatarsal. I then made my tibial cut. After reviewing this, I decided to take 2 more mm. I then removed the extramedullary guide, as well as its pins and then placed the tibial base plate, which was the size E. I then pinned this in position and then reamed and tamped the proximal tibia. After this had been completed, I then placed the femoral trial and then made my distal femoral box cut. After this had been completed, we then placed a 10 mm trial. This provided good stability in flexion and extension as well as mid flexion. I then removed all of our implants and then copiously irrigated with saline. We then placed cement on all of our implants as well as the bone and then cemented all of our components into place with the knee in extension and a [address]. After our components were fully cemented in and dried, I removed any extra cement. I removed the polyethylene trial. I copiously irrigated with saline. I then trialed the #12 which I thought was more appropriate and then we inserted the #12 polyethylene insert. After this had been complete, we copiously irrigated with saline again. I closed the fascia with two #5 Ethibond sutures in an interrupted manner followed by closure of the parapatellar arthrotomy with 0 Vicryl [id number] interrupted sutures followed by subcutaneous sutures which were 2-0 Vicryl, which was performed by Roseline Dunn followed by 2-0 Monocryl, followed by a zip line followed by sterile dressing. The tourniquet was let down during cementing. The patient was then allowed to awaken and then go to the PACU in stable condition. Mohamud Lamar DO /[id number]
== END 2016-11-20 13:15 | disposition home or self-care (01) | DRG 470 ==
LOC: JP.SDS 06:47 → JP.MS 06:47 → EDSTATUS 07:30 → JP.MS 12:26
PROVIDERS: ADMIT Orthopaedic Surgery; ATTEND Orthopaedic Surgery
PROC: 0SRC0J9 Replacement of Right Knee Joint with Synthetic Substitute, Cemented, Open Approach (ICD-10-PCS; principal; 2016-11-18)
DX: M17.11 Unilateral primary osteoarthritis, right knee (principal); M19.90 Unspecified osteoarthritis, unspecified site; I10 Essential (primary) hypertension; E78.5 Hyperlipidemia, unspecified; F41.9 Anxiety disorder, unspecified; F32.9 Major depressive disorder, single episode, unspecified; G47.33 Obstructive sleep apnea (adult) (pediatric); G40.909 Epilepsy, unspecified, not intractable, without status epilepticus; Z96.652 Presence of left artificial knee joint; Z86.711 Personal history of pulmonary embolism; Z86.718 Personal history of other venous thrombosis and embolism; Z86.73 Personal history of transient ischemic attack (TIA), and cerebral infarction without residual deficits; H54.7 Unspecified visual loss; F10.21 Alcohol dependence, in remission; Z91.5 Personal history of self-harm; Z88.6 Allergy status to analgesic agent; Z88.5 Allergy status to narcotic agent; Z88.8 Allergy status to other drugs, medicaments and biological substances; Z79.82 Long term (current) use of aspirin; Z91.048 Other nonmedicinal substance allergy status
CPT/HCPCS: 36415; 73560-26-RT; 73560-RT; 80048; 80053; 85025; 86850; 86900; 86901; 97110-GP; 97116-GP; 97162-GP; 97166-GO; 97530-GP; A9270-GY; C1713; C1776; J0690; J1100; J1200; J1580; J1885; J2250; J2405; J2704; J3010; J7050; J7120

== ENCOUNTER 2017-03-17 00:32 | Emergency (ER) | payer MEDICARE, MEDICAID ==
[2017-03-17 01:05] VITALS: BP 123/82
--- NOTE | 2017-03-17 01:15 | EDM.PDOC ---
ED HPI GENERAL MEDICAL PROBLEM - General Chief Complaint: Cardiovascular Problem Stated Complaint: POSSIBLE BLOOD CLOT Time Seen by Provider: 03/17/17 01:12 Source of Information: Reports: Patient, RN Notes Reviewed History Limitations: Reports: No Limitations - History of Present Illness INITIAL COMMENTS - FREE TEXT/NARRATIVE: Drove herself here Chief complaint Pain and swelling right leg, worried about having DVT History of present illness 61-year-old female had DVT 4 years ago right lower extremity which progressed pulmonary embolism. She was placed on anticoagulant. 3 years ago she collapsed and was found at the bottom of stairs, unsure when it happened. 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 She was treated at [facility] with clipping and then within 24 hours she had cerebral bleed which needed craniotomy drainage. Consequently she was not placed on long-term anticoagulation apart from low-dose aspirin once daily. She had left knee replacement a year ago and right knee replacement in November. She's been having some trouble getting around with several frequent falls. However she's also been involved with moving, from one apartment building to another because of decreased income and she is been doing a lot of packing and lifting. For whatever reason and she noticed increased pain in her right calf since 9 PM with swelling around the right foot and right ankle. Slight shortness of breath but no pleuritic chest pain no palpitations no nausea or vomiting. No history of myocardial ischemia Right Ankle Pain Score (Numeric/FACES): 6 - Related Data Allergies Allergy/AdvReac Type Severity Reaction Status Date / Time acetaminophen Allergy Severe Arrhythmias Verified 11/18/16 07:17 morphine Allergy Severe Vomiting Verified 11/18/16 07:17 naloxone HCl [From Narcan] Allergy Severe Anaphylactic Verified 11/18/16 07:17 Shock adhesive tape Allergy Hives Verified 11/18/16 07:17 epinephrine Allergy Other Verified 11/18/16 14:58 [From Xylocaine-Epinephrine] erythromycin base Allergy Other Verified 11/18/16 07:17 lidocaine Allergy Other Verified 11/18/16 14:58 [From Xylocaine-Epinephrine] Home Meds: Home Meds lamoTRIgine [Lamictal] 200 mg PO DAILY 05/19/13 [History] amLODIPine [Norvasc] 2.5 mg PO DAILY 09/22/14 [History] Biotin 10 mg PO DAILY 01/31/16 [History] Naproxen Sodium [Aleve] 2 tab PO BID 01/31/16 [History] FLUoxetine [PROzac] 80 mg PO DAILY 06/16/16 [History] traZODone 50 mg PO ASDIRECTED PRN 06/16/16 [History] Chrom Blayne/Brindal Platt [Garcinia Cambogia Tablet] 1 each PO BID 11/14/16 [ History] Pravastatin [Pravachol] 20 mg PO DAILY 11/14/16 [History] Aspirin [Ecotrin] 325 mg PO BID tab.ec 11/18/16 [Rx] LORazepam [Ativan] 1 mg PO BEDTIME PRN #30 11/20/16 [Rx] traMADol [Ultram] 50 mg PO Q6H PRN #90 tablet 11/20/16 [Rx] Past Medical History HEENT History: Reports: Impaired Vision Cardiovascular History: Reports: Arrhythmia, Blood Clots/VTE/DVT, High Cholesterol, Hypertension, SOB on Exertion, Other (See Below) Other Cardiovascular History: PE Respiratory History: Reports: Bronchitis, Recurrent, PE, Pneumonia, Recurrent, Sleep Apnea, SOB Other Respiratory History: PE Gastrointestinal History: Reports: Bowel Obstruction, Chronic Constipation, Diverticulosis Genitourinary History: Reports: UTI, Recurrent FUNDRAISING ASSISTANT History: Reports: 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 Uterine Bleeding, , Spontaneous Musculoskeletal History: Reports: Fracture, Osteoarthritis Neurological History: Reports: TIA Psychiatric History: Reports: Anxiety, Depression, Panic Attack, Psych Hospitalization(s), Suicide Attempt, Other (See Below) (Alcohol addiction, sober many years) Endocrine/Metabolic History: Reports: Obesity/BMI 30+ Hematologic History: Reports: Anemia, Iron Deficiency Dermatologic History: Reports: Urticaria - Infectious Disease History Infectious Disease History: Reports: Chicken Pox, Measles, Mumps - Past Surgical History Cardiovascular Surgical History: Reports: Other (See Below) Female Surgical History: Reports: Section, Hysterectomy, Salpingo- Oophorectomy Endocrine Surgical History: Reports: None Neurological Surgical History: Reports: Other (See Below) Other Neurological Surgeries/Procedures: 5 anurisms clipped in brain. Musculoskeletal Surgical History: Reports: Carpal Tunnel, Knee Replacement Dermatological Surgical History: Reports: Other (See Below) Social & Family History - Tobacco Use Smoking Status *Q: Never Smoker Second Hand Smoke Exposure: No - Caffeine Use Caffeine Use: Reports: Soda - Alcohol Use Days Per Week of Alcohol Use: 0 - Recreational Drug Use Recreational Drug Use: No ED ROS GENERAL - Review of Systems Review Of Systems: See Below Constitutional: Denies: Fever, Chills, Decreased Appetite HEENT: Reports: No Symptoms Respiratory: Reports: Shortness of Breath (Very slight). Denies: Pleuritic Chest Pain, Cough Cardiovascular: Denies: Chest Pain, Palpitations GI/Abdominal: Reports: No Symptoms Musculoskeletal: Reports: Leg Pain (Right calf), Other (Swelling and edema right ankle) Skin: Reports: No Symptoms Neurological: Reports: No Symptoms Psychiatric: Reports: No Symptoms Hematologic/Lymphatic: Reports: No Symptoms ED EXAM, GENERAL - Physical Exam Exam: See Below Exam Limited By: No Limitations General Appearance: Alert, Anxious, Mild Distress, Other (Vital signs are within normal limits, no difficulty speaking or breathing, pleasant and alert) Eye Exam: Bilateral Eye: Normal Inspection Throat/Mouth: Normal Inspection, Normal Voice Neck: Normal Inspection Respiratory/Chest: No Respiratory Distress, No Accessory Muscle Use Cardiovascular: Normal Peripheral Pulses, Regular Rate, Rhythm, No Murmur Extremities: Pedal Edema (Right foot and ankle), Leg Pain (Right calf), Other ( Normal peripheral pulses). No: Normal Capillary Refill Neurological: Alert, Oriented, No Motor/Sensory Deficits Psychiatric: Normal Affect, Normal Mood Skin Exam: Warm, Dry, Intact, Normal Color, No Rash Lymphatic: No Adenopathy Course - Vital Signs Last Recorded V/S: Last Vital Signs Temp 36.2 C 03/17/17 01:04 Pulse 94 03/17/17 01:04 Resp 16 03/17/17 01:04 BP 123/82 03/17/17 01:04 Pulse Ox 95 03/17/17 01:04 - Orders/Labs/Meds Orders: Active Orders 24 hr Category Date Time Status VL Duplex Lwr Ext Veins Ltd Rt [US] Stat Exams 03/17/17 01:28 Taken Meds: Medications Discontinued Medications Generic Name Dose Route Start Last Admin Trade Name Freq PRN Reason Stop Dose Admin Lorazepam 0.5 mg 03/17/17 01:28 03/17/17 01:32 Ativan PO 03/17/17 01:29 0.5 mg ONETIME ONE Administration - Re-Assessments/Exams Free Text/Narrative Re-Assessment/Exam: 03/17/17 01:35 61-year-old female with new onset of right calf pain and right foot and ankle swelling since 9 PM this evening. History of DVT of the same leg, however the swelling can be due to the increased workload in packing up her stuff her apartment as well as possible sequelae of recent falls because of recent troubles walking since her hip replacement. She felt a bit anxious requested something to help her calm down, lorazepam 0.5 mg by mouth Venous Doppler right leg 03/17/17 02:31 Doppler right leg negative for DVT Patient is awake enough awareness that she can safely drive home, 2 blocks Follow-up primary care 1 week if symptoms are persisting Departure - Departure Time of Disposition: 02:32 Disposition: Home, Self-Care 01 Condition: Good Clinical Impression: Edema of left lower extremity Instructions: Peripheral Edema Forms: ED Department Discharge Additional Instructions: Please see your physician 1 week if you're continuing to have pain and swelling in your right leg compared to the left Ultrasound may need to be repeated. Get rechecked sooner if you develop shortness of breath chest pain or severe weakness or fainting. - My Orders Last 24 Hours: My Active Orders 03/17/17 01:28 VL Duplex Lwr Ext Veins Ltd Rt [US] Stat - Assessment/Plan Last 24 Hours: My Active Orders 03/17/17 01:28 VL Duplex Lwr Ext Veins Ltd Rt [US] Stat
[2017-03-17] MEDS ORDERED: LORazepam 0.5 MG Tab PO ONE (01:28)
--- NOTE | 2017-03-17 09:43 | US ---
VL Duplex Lwr Ext Veins Ltd Rt FINDINGS: Ultrasound examination of the right lower extremity using Doppler and compressive techniqu e demonstrates that the common femoral, femoral, and popliteal veins are patent, and negative for th rombus. The calf veins were segmentally visualized and are negative where seen. IMPRESSION: Lower extremity negative for deep venous thrombosis.
== END 2017-03-17 02:39 | disposition home or self-care (01) ==
LOC: JP.ED 00:32
DX: R60.0 Localized edema (principal); E78.00 Pure hypercholesterolemia, unspecified; I10 Essential (primary) hypertension; F32.9 Major depressive disorder, single episode, unspecified; F41.0 Panic disorder [episodic paroxysmal anxiety]; Z86.718 Personal history of other venous thrombosis and embolism; Z86.711 Personal history of pulmonary embolism; Z87.09 Personal history of other diseases of the respiratory system; Z79.01 Long term (current) use of anticoagulants; Z87.440 Personal history of urinary (tract) infections; Z88.5 Allergy status to narcotic agent; Z88.1 Allergy status to other antibiotic agents; Z96.659 Presence of unspecified artificial knee joint; Z90.710 Acquired absence of both cervix and uterus; Z79.899 Other long term (current) drug therapy
CPT/HCPCS: 93971; 99284; A9270

== ENCOUNTER 2017-07-21 14:27 | Emergency (ER) | payer MEDICARE, MEDICAID ==
[2017-07-21] MEDS ORDERED: Sodium Chloride 0.9% 10 ML Syringe FLUSH PRN (14:35)
[2017-07-21] MEDS ORDERED: Aspirin 81 MG Tab.Chew PO ONE (14:37)
--- NOTE | 2017-07-21 14:49 | EDM.PDOC ---
ED HPI GENERAL MEDICAL PROBLEM - General Chief Complaint: Neuro Symptoms/Deficits Stated Complaint: MEDICAL VIA [facility] Time Seen by Provider: 07/21/17 14:35 Source of Information: Reports: Patient, EMS, Old Records History Limitations: Reports: No Limitations - History of Present Illness INITIAL COMMENTS - FREE TEXT/NARRATIVE: 61 yo female presents with L facial droop and L arm/hand weakness since about 10 :30 am today. Sx's improved after onset, but did not resolve and later got wose again about 1415h today. EMS responded to her home and noted the above neuro deficits, but she had stable vitals and was fully alert and oriented. Lives alone. 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 Has no ANDREW today. Takes a baby aspirin at and took the dose last night. No chest pain. Is not a smoker. 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: Other (see below) (none today) - Related Data Allergies Allergy/AdvReac Type Severity Reaction Status Date / Time acetaminophen Allergy Severe Arrhythmias Verified 07/21/17 14:43 morphine Allergy Severe Vomiting Verified 07/21/17 14:43 naloxone HCl [From Narcan] Allergy Severe Anaphylactic Verified 07/21/17 14:43 Shock adhesive tape Allergy Hives Verified 07/21/17 14:43 erythromycin base Allergy Other Verified 07/21/17 14:43 lidocaine Allergy Other Verified 07/21/17 14:43 [From Xylocaine-Epinephrine] epinephrine AdvReac Other Verified 07/21/17 14:43 [From Xylocaine-Epinephrine] Home Meds: Home Meds amLODIPine [Norvasc] 2.5 mg PO DAILY 09/22/14 [History] Biotin 10 mg PO DAILY 01/31/16 [History] Naproxen Sodium [Aleve] 2 tab PO BID PRN 01/31/16 [History] FLUoxetine [PROzac] 80 mg PO DAILY 06/16/16 [History] traZODone 50 - 100 mg PO ASDIRECTED PRN 06/16/16 [History] Chrom Blayne/Brindal Platt [Garcinia Cambogia Tablet] 1 each PO BID 11/14/16 [ History] Pravastatin [Pravachol] 40 mg PO DAILY 11/14/16 [History] Aspirin [Halfprin] 1 tab PO DAILY 07/21/17 [History] Mirabegron [Myrbetriq] 1 tab PO DAILY 07/21/17 [History] Mirtazapine 15 mg PO BEDTIME 07/21/17 [History] lamoTRIgine [Lamotrigine] 50 mg PO DAILY 07/21/17 [History] Past Medical History HEENT History: Reports: Impaired Vision Cardiovascular History: Reports: Arrhythmia, Blood Clots/VTE/DVT, High Cholesterol, Hypertension, SOB on Exertion, Other (See Below) Other Cardiovascular History: PE Respiratory History: Reports: Bronchitis, Recurrent, PE, Pneumonia, Recurrent, Sleep Apnea, SOB Other Respiratory History: PE Gastrointestinal History: Reports: Bowel Obstruction, Chronic Constipation, Diverticulosis Genitourinary History: Reports: UTI, Recurrent 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 MENDING History: Reports: 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 Uterine Bleeding, , Spontaneous Musculoskeletal History: Reports: Fracture, Osteoarthritis Other Musculoskeletal History: right total knee Neurological History: Reports: TIA Psychiatric History: Reports: Anxiety, Depression, Panic Attack, Psych Hospitalization(s), Suicide Attempt, Other (See Below) Endocrine/Metabolic History: Reports: Obesity/BMI 30+ Hematologic History: Reports: Anemia, Iron Deficiency Dermatologic History: Reports: Urticaria - Infectious Disease History Infectious Disease History: Reports: Chicken Pox, Measles, Mumps - Past Surgical History Cardiovascular Surgical History: Reports: Other (See Below) Female Surgical History: Reports: Section, Hysterectomy, Salpingo- Oophorectomy Endocrine Surgical History: Reports: None Neurological Surgical History: Reports: Other (See Below) Other Neurological Surgeries/Procedures: 5 anurisms clipped in brain. Musculoskeletal Surgical History: Reports: Carpal Tunnel, Knee Replacement Dermatological Surgical History: Reports: Other (See Below) Social & Family History - Tobacco Use Smoking Status *Q: Never Smoker Second Hand Smoke Exposure: No - Caffeine Use Caffeine Use: Reports: Soda - Alcohol Use Days Per Week of Alcohol Use: 0 - Recreational Drug Use Recreational Drug Use: No ED ROS GENERAL - Review of Systems Review Of Systems: See Below Constitutional: Reports: No Symptoms HEENT: Reports: No Symptoms Respiratory: Reports: No Symptoms Cardiovascular: Reports: No Symptoms GI/Abdominal: Reports: No Symptoms : Reports: No Symptoms Musculoskeletal: Reports: No Symptoms Skin: Reports: No Symptoms Neurological: Reports: Weakness (L face and L hand/arm), Other (Thought she had some trouble with swallowing at home today.). Denies: Confusion, Dizziness, Headache, Numbness, Paresthesia, Tingling, Trouble Speaking, Difficulty Walking , Change in Speech Psychiatric: Reports: No Symptoms ED EXAM, NEURO - Physical Exam Exam: See Below Exam Limited By: No Limitations General Appearance: Alert, WD/WN, No Apparent Distress, Obese Eye Exam: Bilateral Eye: EOMI, Normal Inspection, PERRL Ears: Normal External Exam, Normal Canal, Hearing Grossly Normal Nose: Normal Inspection, Normal Mucosa, No Blood Throat/Mouth: Normal Inspection, Normal Lips, Normal Oropharynx, Normal Voice, No Airway Compromise Head Exam: Atraumatic, Normocephalic Neck: Normal Inspection, Supple, Non-Tender. No: Carotid Bruit Respiratory/Chest: No Respiratory Distress, Lungs Clear, Normal Breath Sounds, No Accessory Muscle Use Cardiovascular: Regular Rate, Rhythm, No Edema GI/Abdominal: Normal Bowel Sounds, Soft, Non-Tender, No Distention Neurological: Alert, Normal Mood/Affect, Normal Dorsiflexion, Oriented x 3, Other (No trouble swallowing water in the ER today. No visual field deficits.). No: No Motor/Sensory Deficits (L hand/arm strength 4/5. Slight L facial droop without slurred speech. ) DTR: 3+: Bicep (R), Bicep (L), Tricep (R), Tricep (L), Patella (R), Patella (L) , Achilles (R), Achilles (L) Back Exam: Normal Inspection. No: CVA Tenderness (R), CVA Tenderness (L) Extremities: Normal Inspection, Normal Range of Motion, Non-Tender, No Pedal Edema Psychiatric: Normal Affect, Normal Mood Skin Exam: Warm, Dry, Intact, Normal Color, No Rash Course - Vital Signs Text/Narrative:: Case discussed with Dr. Hanna(here), Drs. Charles(neurologist) and Constantine( hospitalist) @ [facility]. They recommend transfer for MRI/ECHO. 1700h Last Recorded V/S: Last Vital Signs Temp 36 C 07/21/17 14:34 Pulse 65 07/21/17 16:48 Resp 16 07/21/17 16:48 BP 139/79 07/21/17 16:48 Pulse Ox 98 07/21/17 16:48 - Orders/Labs/Meds Orders: Active Orders 24 hr Category Date Time Status Cardiac Monitoring [RC] .As Directed Care 07/21/17 14:35 Active Oxygen Therapy Adult [Oxygen Therapy] [RC] ASDIRECTED Care 07/21/17 14:43 Active Head wo Cont [CT] Stat Exams 07/21/17 14:42 Taken Sodium Chloride 0.9% [Saline Flush] Med 07/21/17 14:35 Active 10 ml FLUSH ASDIRECTED PRN Saline Lock Insert [OM.PC] Routine Oth 07/21/17 14:35 Ordered Medication Orders Sodium Chloride (Saline Flush) 10 ml FLUSH ASDIRECTED PRN PRN Reason: Keep Vein Open Last Admin: 07/21/17 15:40 Dose: 10 ml Labs: Laboratory Tests 07/21/17 07/21/17 07/21/17 Range/Units 14:53 14:53 15:54 WBC 8.2 (4.5-11.0) K/uL RBC 4.97 (3.30-5.50) M/uL Hgb 13.7 D (12.0-15.0) g/dL Hct 42.7 (36.0-48.0) % MCV 86 (80-98) fL MCH 28 (27-31) pg MCHC 32 (32-36) % Plt Count 228 (150-400) K/uL Sodium 142 (140-148) mmol/L Potassium 4.3 (3.6-5.2) mmol/L Chloride 105 (100-108) mmol/L Carbon Dioxide 31 (21-32) mmol/L Anion Gap 6.4 (5.0-14.0) mmol/L BUN 21 H D (7-18) mg/dL Creatinine 0.8 (0.6-1.0) mg/dL Est Cr Clr Drug Dosing 57.67 mL/min Estimated GFR (MDRD) > 60 (>60) Glucose 87 (74-106) mg/dL Calcium 9.5 D (8.5-10.1) mg/dL Troponin I < 0.017 (0.000-0.056) ng/mL Urine Color Yellow Urine Appearance Cloudy Urine pH 7.0 (4.5-8.0) Ur Specific [place] 1.010 (1.008-1.030) Urine Protein Negative (NEGATIVE) mg/dL Urine Glucose (UA) Normal (NEGATIVE) mg/dL Urine Ketones Negative (NEGATIVE) mg/dL Urine Occult Blood Negative (NEGATIVE) Urine Nitrite Negative (NEGATIVE) Urine Bilirubin Negative (NEGATIVE) Urine Urobilinogen Normal (NORMAL) mg/dL Ur Leukocyte Esterase Negative (NEGATIVE) Urine RBC 0-5 (0-5) Urine WBC 0-5 (0-5) Ur Epithelial Cells Moderate Amorphous Sediment Moderate Urine Bacteria Few Urine Mucus Numerous Meds: Medications Generic Name Dose Route Start Last Admin Trade Name Freq PRN Reason Stop Dose Admin Sodium Chloride 10 ml 07/21/17 14:35 07/21/17 15:40 Saline Flush FLUSH 10 ml ASDIRECTED PRN Administration Keep Vein Open Discontinued Medications Generic Name Dose Route Start Last Admin Trade Name Freq PRN Reason Stop Dose Admin Aspirin 324 mg 07/21/17 14:37 07/21/17 15:06 Aspirin PO 07/21/17 14:38 324 mg ONETIME ONE Administration - Radiology Interpretation Free Text/Narrative:: No acute findings on head CT CT Results Date: 07/21/17 CT Results Time: 16:40 Departure - Departure Time of Disposition: 17:12 Disposition: DC/Tfer to Acute Hospital 02 Condition: Fair Clinical Impression: TIA (transient ischemic attack) Qualifiers: Transient cerebral ischemia type: carotid artery syndrome (hemispheric) Qualified Code(s): G45.1 - Carotid artery syndrome (hemispheric) - Discharge Information Referrals: Mayito Grayson NP [Primary Care Provider] - Forms: ED Department Discharge - My Orders Last 24 Hours: My Active Orders 07/21/17 14:35 Cardiac Monitoring [RC] .As Directed Sodium Chloride 0.9% [Saline Flush] 10 ml FLUSH ASDIRECTED PRN Saline Lock Insert [OM.PC] Routine 07/21/17 14:42 Head wo Cont [CT] Stat 07/21/17 14:43 Oxygen Therapy Adult [Oxygen Therapy] [RC] ASDIRECTED - Assessment/Plan Last 24 Hours: My Active Orders 07/21/17 14:35 Cardiac Monitoring [RC] .As Directed Sodium Chloride 0.9% [Saline Flush] 10 ml FLUSH ASDIRECTED PRN Saline Lock Insert [OM.PC] Routine 07/21/17 14:42 Head wo Cont [CT] Stat 07/21/17 14:43 Oxygen Therapy Adult [Oxygen Therapy] [RC] ASDIRECTED
[2017-07-21 16:49] VITALS: BP 139/79
== END 2017-07-21 17:33 ==
LOC: JP.ED 14:27
DX: G45.1 Carotid artery syndrome (hemispheric) (principal); I10 Essential (primary) hypertension; E78.00 Pure hypercholesterolemia, unspecified; F41.0 Panic disorder [episodic paroxysmal anxiety]; F32.9 Major depressive disorder, single episode, unspecified; Z79.82 Long term (current) use of aspirin; Z79.899 Other long term (current) drug therapy; Z88.1 Allergy status to other antibiotic agents; Z88.8 Allergy status to other drugs, medicaments and biological substances; Z88.5 Allergy status to narcotic agent; Z88.6 Allergy status to analgesic agent; Z91.048 Other nonmedicinal substance allergy status
CPT/HCPCS: 36415; 70450; 80048; 81001; 84484; 85027; 99285; A9270; J7050

== ENCOUNTER 2017-12-07 06:39 | Day surgery (SDC) | payer MEDICARE, MEDICAID ==
[2017-12-07] MEDS ORDERED: Lactated Ringers 1,000 ML IV SCH (07:00)
[2017-12-07] MEDS ORDERED: Midazolam 1 MG/ML 2 ML SDV ONE (07:20)
[2017-12-07] MEDS ORDERED: Propofol 200 MG/20 ML SDV ONE (07:20)
[2017-12-07] MEDS ORDERED: fentaNYL 100 MCG/2 ML SDV ONE (07:20)
[2017-12-07] MEDS ORDERED: Lidocaine 1% 2 ML ONE (07:43)
[2017-12-07 09:23] VITALS: BP 111/88
--- NOTE | 2017-12-07 09:37 | OR ---
DATE OF PROCEDURE: 12/07/2017 PROCEDURE: Colonoscopy. FINDINGS: 1. Diverticulosis. 2. Poor colon prep. COMPLICATIONS: None. 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 PREOPERATIVE DIAGNOSIS: Screening colonoscopy. POSTOPERATIVE DIAGNOSIS: Screening colonoscopy. RISKS: Risks, benefits, alternatives, and limitations including, but not limited to infection, bleeding, and perforation were explained to the patient who wished to proceed. PROCEDURE IN DETAIL: The patient was placed in left lateral decubitus position. Digital rectal exam was performed without abnormality. Scope was introduced and advanced atraumatically to the ileocecal valve. The scope was brought back to the ascending, transverse, descending colon, and retroflexed. No evidence of old or new blood. No polyps. The prep was poor with solid and liquid stool remaining. Suction, irrigation, and maneuvering procedures were used to maximize optimization of the colonic mucosa. The diverticulosis would be described as mild and mostly in the ogy-dy-fapsyhy colon. No abnormalities on retroflexion. The patient tolerated the procedure well. Isiah Navarro MD /[id number]
== END 2017-12-07 09:33 | disposition home or self-care (01) ==
LOC: JP.SDS 06:39
PROVIDERS: ATTEND Surgery
DX: Z12.11 Encounter for screening for malignant neoplasm of colon (principal); K57.30 Diverticulosis of large intestine without perforation or abscess without bleeding; I10 Essential (primary) hypertension; I67.1 Cerebral aneurysm, nonruptured; E66.9 Obesity, unspecified; Z88.1 Allergy status to other antibiotic agents; Z88.4 Allergy status to anesthetic agent; Z88.5 Allergy status to narcotic agent; Z91.048 Other nonmedicinal substance allergy status; Z86.73 Personal history of transient ischemic attack (TIA), and cerebral infarction without residual deficits
CPT/HCPCS: G0121; J2250; J2704; J3010; J2001

== ENCOUNTER 2018-09-30 13:36 | Emergency (ER) | payer MEDICARE, MEDICAID ==
--- NOTE | 2018-09-30 14:37 | EDM.PDOC ---
ED HPI GENERAL MEDICAL PROBLEM - General Chief Complaint: Neuro Symptoms/Deficits Stated Complaint: LEFT HAND ACTING STRANGE Time Seen by Provider: 09/30/18 14:30 Source of Information: Reports: Patient History Limitations: Reports: No Limitations - History of Present Illness INITIAL COMMENTS - FREE TEXT/NARRATIVE: pt arrived with a history of a very severe headache. Onset: Today Duration: Hour(s): Location: Reports: Head, Upper Extremity, Left, Other (pt had a very severe headache yesterday. The headache is now much better. ) Quality: Reports: Sharp, Stabbing Associated Symptoms: Reports: Headaches - Related Data Allergies Allergy/AdvReac Type Severity Reaction Status Date / Time acetaminophen Allergy Severe Arrhythmias Verified 09/30/18 14:39 morphine Allergy Severe Vomiting Verified 09/30/18 14:39 naloxone HCl [From Narcan] Allergy Severe Anaphylactic Verified 09/30/18 14:39 Shock adhesive tape Allergy Hives Verified 09/30/18 14:39 erythromycin base Allergy Other Verified 09/30/18 14:39 lidocaine Allergy Other Verified 09/30/18 14:39 [From Xylocaine-Epinephrine] epinephrine AdvReac Other Verified 09/30/18 14:39 [From Xylocaine-Epinephrine] Home Meds: Home Meds amLODIPine [Norvasc] 2.5 mg PO DAILY 09/22/14 [History] Biotin 10 mg PO DAILY 01/31/16 [History] Naproxen Sodium [Aleve] 2 tab PO BID PRN 01/31/16 [History] FLUoxetine [PROzac] 80 mg PO DAILY 06/16/16 [History] traZODone 50 - 100 mg PO ASDIRECTED PRN 06/16/16 [History] Pravastatin [Pravachol] 40 mg PO DAILY 11/14/16 [History] Aspirin [Halfprin] 81 mg PO DAILY 07/21/17 [History] Mirabegron [Myrbetriq] 25 mg PO DAILY 07/21/17 [History] Mirtazapine 15 mg PO BEDTIME 07/21/17 [History] lamoTRIgine [Lamotrigine] 50 mg PO DAILY 07/21/17 [History] Past Medical History HEENT History: Reports: Impaired Vision Cardiovascular History: Reports: Arrhythmia, Blood Clots/VTE/DVT, High Cholesterol, Hypertension, SOB on Exertion, Other (See Below) Other Cardiovascular History: PE Respiratory History: Reports: Bronchitis, Recurrent, PE, Pneumonia, Recurrent, Sleep Apnea, SOB Other Respiratory History: PE Gastrointestinal History: Reports: Bowel Obstruction, Chronic Constipation, Diverticulosis Genitourinary History: Reports: UTI, Recurrent 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: 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 Uterine Bleeding, , Spontaneous Musculoskeletal History: Reports: Fracture, Osteoarthritis Other Musculoskeletal History: right total knee Neurological History: Reports: CVA, Migraines, TIA, Vertigo Psychiatric History: Reports: Anxiety, Depression, Panic Attack, Psych Hospitalization(s), Suicide Attempt, Other (See Below) Endocrine/Metabolic History: Reports: Obesity/BMI 30+ Hematologic History: Reports: Anemia, Blood Transfusion(s), Iron Deficiency Dermatologic History: Reports: Urticaria - Infectious Disease History Infectious Disease History: Reports: Chicken Pox, Measles, Mumps - Past Surgical History Cardiovascular Surgical History: Reports: Other (See Below) Respiratory Surgical History: Reports: None GI Surgical History: Reports: None Female Surgical History: Reports: Section, Hysterectomy, Salpingo- Oophorectomy Endocrine Surgical History: Reports: None Neurological Surgical History: Reports: Other (See Below) Other Neurological Surgeries/Procedures: 5 anurisms clipped in brain. Musculoskeletal Surgical History: Reports: Carpal Tunnel, Knee Replacement Social & Family History - Family History Family Medical History: Noncontributory - Caffeine Use Caffeine Use: Reports: Coffee, Soda ED ROS GENERAL - Review of Systems Review Of Systems: See Below Constitutional: Reports: No Symptoms HEENT: Reports: No Symptoms Respiratory: Reports: No Symptoms Cardiovascular: Reports: No Symptoms Endocrine: Reports: No Symptoms GI/Abdominal: Reports: No Symptoms : Reports: No Symptoms Musculoskeletal: Reports: Other ( weakness in the left ) Skin: Reports: No Symptoms Neurological: Reports: Headache, Other (difficulty moving the left hand. ) Psychiatric: Reports: No Symptoms ED EXAM, NEURO - Physical Exam Exam: See Below Text/Narrative:: pt has a history of repair of multiple aneuyisms at [facility]. She developed a cerebral bleed post op and she was not able to move her left side. She has gotten almost everything back but yesterday she developed a headache and today some of the motion in her left hand is decreased. Exam Limited By: No Limitations General Appearance: Alert, Anxious, Other (pupils are equal and reactive. ) Ears: Normal TMs Nose: Normal Inspection Throat/Mouth: Normal Inspection Head Exam: Atraumatic Neck: Normal Inspection Respiratory/Chest: No Respiratory Distress Cardiovascular: Regular Rate, Rhythm GI/Abdominal: Soft, Non-Tender (Female) Exam: Deferred Rectal (Female) Exam: Deferred Neurological: Alert, Other (pt had a severe headaCHE YESTERDAY AND SHE HAS DIFFICULTY MOVING THE LEFT HAND. ) Back Exam: Normal Inspection Extremities: Other ( DIFFICULTY MOVING THE LEFT HAND. ) Psychiatric: Normal Affect Course - Vital Signs Last Recorded V/S: Last Vital Signs Temp 35.4 C 09/30/18 14:35 Pulse 88 09/30/18 16:06 Resp 16 09/30/18 16:06 BP 141/87 H 09/30/18 16:06 Pulse Ox 94 L 09/30/18 16:06 - Orders/Labs/Meds Orders: Active Orders 24 hr Category Date Time Status EKG Documentation Completion [RC] ASDIRECTED Care 09/30/18 15:27 Active EKG 12 Lead [EK] Routine Ther 09/30/18 15:27 Ordered Labs: Laboratory Tests 09/30/18 09/30/18 09/30/18 Range/Units 14:49 14:49 16:00 WBC 8.4 (4.5-11.0) K/uL RBC 4.99 (3.30-5.50) M/uL Hgb 13.4 (12.0-15.0) g/dL Hct 43.4 (36.0-48.0) % MCV 87 (80-98) fL MCH 27 (27-31) pg MCHC 31 L (32-36) % Plt Count 229 (150-400) K/uL Neut % (Auto) 59 (36-66) % Lymph % (Auto) 31 (24-44) % Charles % (Auto) 6 (2-6) % Eos % (Auto) 4 (2-4) % Baso % (Auto) 1 (0-1) % Sodium 141 (140-148) mmol/L Potassium 4.1 (3.6-5.2) mmol/L Chloride 104 (100-108) mmol/L Carbon Dioxide 29 (21-32) mmol/L Anion Gap 7.6 (5.0-14.0) mmol/L BUN 12 (7-18) mg/dL Creatinine 0.7 (0.6-1.0) mg/dL Est Cr Clr Drug Dosing 71.03 mL/min Estimated GFR (MDRD) > 60 (>60) Glucose 98 (74-106) mg/dL Calcium 9.2 (8.5-10.1) mg/dL Total Bilirubin 0.2 (0.2-1.0) mg/dL AST 18 (15-37) U/L ALT 24 (12-78) U/L Alkaline Phosphatase 116 (46-116) U/L Total Protein 6.8 (6.4-8.2) g/dL Albumin 3.3 L (3.4-5.0) g/dL Globulin 3.5 (2.3-3.5) g/dL Albumin/Globulin Ratio 0.9 L (1.2-2.2) Urine Color Yellow Urine Appearance Clear Urine pH 7.0 (4.5-8.0) Ur Specific [place] 1.010 (1.008-1.030) Urine Protein Negative (NEGATIVE) mg/dL Urine Glucose (UA) Normal (NEGATIVE) mg/dL Urine Ketones Negative (NEGATIVE) mg/dL Urine Occult Blood Negative (NEGATIVE) Urine Nitrite Negative (NEGATIVE) Urine Bilirubin Negative (NEGATIVE) Urine Urobilinogen Normal (NORMAL) mg/dL Ur Leukocyte Esterase Negative (NEGATIVE) Urine RBC 0-5 (0-5) Urine WBC 0-5 (0-5) Ur Epithelial Cells Rare Amorphous Sediment Few Urine Bacteria Rare Urine Mucus Rare - Re-Assessments/Exams Free Text/Narrative Re-Assessment/Exam: 09/30/18 15:29 PT HAS NORMAL CHEMS AND CBC. 09/30/18 16:45 cat scan of the head shows alot of old changes but no acute findings. Pt os doing well at this time. Her hand looks like there was some stiffness but otherwise no acute changes. 09/30/18 16:49 The change in hand motion is minimal. Her strength seemes good. Departure - Departure Time of Disposition: 16:46 Disposition: Home, Self-Care 01 Condition: Fair Clinical Impression: CVA, old, alterations of sensations, Left hand weakness - Discharge Information Referrals: Mayito Grayson, CLINICAL SALES CONSULTANT [Primary Care Provider] - Forms: ED Department Discharge Care Plan Goals: rtc if any further changes, contine same meds and exercises. - My Orders Last 24 Hours: My Active Orders 09/30/18 15:27 EKG Documentation Completion [RC] ASDIRECTED EKG 12 Lead [EK] Routine - Assessment/Plan Last 24 Hours: My Active Orders 09/30/18 15:27 EKG Documentation Completion [RC] ASDIRECTED EKG 12 Lead [EK] Routine
[2018-09-30 16:07] VITALS: BP 141/87
--- NOTE | 2018-09-30 16:40 | CRLCT ---
INDICATION: HEADACHE AND DIFFICULTY WITH MOVEMENT IN LEFT HAND TECHNIQUE: CT of the head without contrast. COMPARISON: 07/21/2017 FINDINGS: Postoperative changes consistent with mature right frontal pterional craniotomy flap and aneurysm clip in the right MCA territory. Stable hypoattenuation in the right frontal lobe and anterior right insula consistent with encephalomalacia. There is associated ex vacuo dilation of the right lateral ventricle. No mass effect or midline shift. No suspicious extra-axial collection or acute intracranial hemorrhage. Bunch-white matter differentiation is preserved. No hydrocephalus. The orbits, paranasal sinuses, mastoid air cells are clear. IMPRESSION: 1. No evidence of acute intracranial abnormality. 2. Postoperative changes consistent with mature right frontal pterional craniotomy flap and aneurysm clip in the right MCA territory. 3. Stable hypoattenuation in the right frontal lobe and anterior right insula consistent with encephalomalacia. Please note that all CT scans at this facility use dose modulation, iterative reconstruction, and/or weight-based dosing when appropriate to reduce radiation dose to as low as reasonably achievable. Dictated by Enrike Valenzuela MD @ Sep 30 2018 4:36PM Signed by Dr. Enrike Valenzuela @ Sep 30 2018 4:39PM
== END 2018-09-30 16:58 | disposition home or self-care (01) ==
LOC: JP.ED 13:36
DX: M62.81 Muscle weakness (generalized) (principal); R20.9 Unspecified disturbances of skin sensation; F41.9 Anxiety disorder, unspecified; F32.9 Major depressive disorder, single episode, unspecified; Z88.8 Allergy status to other drugs, medicaments and biological substances; Z79.82 Long term (current) use of aspirin; Z79.899 Other long term (current) drug therapy; Z86.73 Personal history of transient ischemic attack (TIA), and cerebral infarction without residual deficits
CPT/HCPCS: 36415; 70450; 80053; 81001; 85025; 93005; 93010; 99283; 99285-25

== ENCOUNTER 2018-12-11 20:46 | Emergency (ER) | payer MEDICARE, MEDICAID ==
[2018-12-11 21:33] VITALS: BP 131/76
--- NOTE | 2018-12-11 22:06 | EDM.PDOC ---
ED HPI GENERAL MEDICAL PROBLEM - General Chief Complaint: Lower Extremity Injury/Pain Stated Complaint: FELL BLOOD CLOT IN LEG Time Seen by Provider: 12/11/18 21:44 Source of Information: Reports: Patient History Limitations: Reports: No Limitations - History of Present Illness INITIAL COMMENTS - FREE TEXT/NARRATIVE: chief complaint: right leg pain, worried may have a blood clot This is a 63 year old female presents to ER for evaluation. She reports fell two days ago, bumped her right leg. reports no other injury. Her right leg continues to be painful worried she may have a blood clot. reports a few years ago had a blood clot in the same leg. She is able to ambulate but painful. denies any chest pain, shortness of breath, fever, chills, or any other symptoms. Onset: Today Duration: Day(s): (2) Location: Reports: Lower Extremity, Right Quality: Reports: Ache Severity: Mild Improves with: Reports: Rest Worsens with: Reports: Movement Associated Symptoms: Reports: No Other Symptoms Right Knee Pain Score (Numeric/FACES): 4 - Related Data Allergies Allergy/AdvReac Type Severity Reaction Status Date / Time acetaminophen Allergy Severe Arrhythmias Verified 09/30/18 14:39 morphine Allergy Severe Vomiting Verified 09/30/18 14:39 naloxone HCl [From Narcan] Allergy Severe Anaphylactic Verified 09/30/18 14:39 Shock adhesive tape Allergy Hives Verified 09/30/18 14:39 erythromycin base Allergy Other Verified 09/30/18 14:39 lidocaine Allergy Other Verified 09/30/18 14:39 [From Xylocaine-Epinephrine] epinephrine AdvReac Other Verified 09/30/18 14:39 [From Xylocaine-Epinephrine] Home Meds: Home Meds amLODIPine [Norvasc] 2.5 mg PO DAILY 09/22/14 [History] Biotin 10 mg PO DAILY 01/31/16 [History] Naproxen Sodium [Aleve] 2 tab PO BID PRN 01/31/16 [History] FLUoxetine [PROzac] 80 mg PO DAILY 06/16/16 [History] traZODone 50 - 100 mg PO ASDIRECTED PRN 06/16/16 [History] Pravastatin [Pravachol] 40 mg PO DAILY 11/14/16 [History] Aspirin [Halfprin] 81 mg PO DAILY 07/21/17 [History] Mirabegron [Myrbetriq] 25 mg PO DAILY 07/21/17 [History] Mirtazapine 15 mg PO BEDTIME 07/21/17 [History] lamoTRIgine [Lamotrigine] 50 mg PO DAILY 07/21/17 [History] Past Medical History HEENT History: Reports: Impaired Vision Cardiovascular History: Reports: Arrhythmia, Blood Clots/VTE/DVT, High Cholesterol, Hypertension, SOB on Exertion, Other (See Below) Other Cardiovascular History: PE Respiratory History: Reports: Bronchitis, Recurrent, PE, Pneumonia, Recurrent, Sleep Apnea, SOB Other Respiratory History: PE Gastrointestinal History: Reports: Bowel Obstruction, Chronic Constipation, Diverticulosis Genitourinary History: Reports: UTI, Recurrent 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: 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 Uterine Bleeding, , Spontaneous Musculoskeletal History: Reports: Fracture, Osteoarthritis Other Musculoskeletal History: right total knee Neurological History: Reports: CVA, Migraines, TIA, Vertigo Psychiatric History: Reports: Anxiety, Depression, Panic Attack, Psych Hospitalization(s), Suicide Attempt, Other (See Below) Endocrine/Metabolic History: Reports: Obesity/BMI 30+ Hematologic History: Reports: Anemia, Blood Transfusion(s), Iron Deficiency Dermatologic History: Reports: Urticaria - Infectious Disease History Infectious Disease History: Reports: Chicken Pox, Measles, Mumps - Past Surgical History Cardiovascular Surgical History: Reports: Other (See Below) Respiratory Surgical History: Reports: None GI Surgical History: Reports: None Female Surgical History: Reports: Section, Hysterectomy, Salpingo- Oophorectomy Endocrine Surgical History: Reports: None Neurological Surgical History: Reports: Other (See Below) Other Neurological Surgeries/Procedures: 5 anurisms clipped in brain. Musculoskeletal Surgical History: Reports: Carpal Tunnel, Knee Replacement Social & Family History - Family History Family Medical History: Noncontributory - Tobacco Use Smoking Status *Q: Unknown Ever Smoked - Caffeine Use Caffeine Use: Reports: Coffee, Soda - Living Situation & Occupation Living situation: Reports: Occupation: Disabled (lives [address] Review of Systems - Review of Systems Review Of Systems: See Below Constitutional: Reports: No Symptoms Eyes: Reports: No Symptoms Ears: Reports: No Symptoms Nose: Reports: No Symptoms Mouth/Throat: Reports: No Symptoms Cardiovascular: Reports: No Symptoms GI/Abdominal: Reports: No Symptoms Genitourinary: Reports: No Symptoms Musculoskeletal: Reports: Leg Pain, Muscle Pain (right lower leg.) Skin: Reports: No Symptoms Neurological: Reports: No Symptoms Psychiatric: Reports: No Symptoms ED EXAM, GENERAL - Physical Exam Exam: See Below Exam Limited By: No Limitations General Appearance: Alert, WD/WN, No Apparent Distress Eye Exam: Bilateral Eye: Normal Inspection Ears: Normal External Exam, Normal Canal, Hearing Grossly Normal, Normal TMs Ear Exam: Bilateral Ear: Auricle Normal, Canal Normal, TM normal Nose: Normal Inspection, Normal Mucosa, No Blood Throat/Mouth: Normal Inspection, Normal Lips, Normal Teeth, Normal Gums, Normal Oropharynx, Normal Voice, No Airway Compromise Head: Atraumatic, Normocephalic Neck: Normal Inspection, Supple, Non-Tender, Full Range of Motion Respiratory/Chest: No Respiratory Distress, Lungs Clear, Normal Breath Sounds, No Accessory Muscle Use, Chest Non-Tender Cardiovascular: Regular Rate, Rhythm, No Murmur Peripheral Pulses: 2+: Brachial (R), Radial (L), Dorsalis Pedis (L), Dorsalis Pedis (R) GI/Abdominal: Normal Bowel Sounds, Soft, Non-Tender Back Exam: Normal Inspection, Full Range of Motion Extremities: Normal Inspection, Normal Range of Motion, Non-Tender (negative divya's, does have point tenderness to posterior knee. no redness or injury to skin is seen. ), No Pedal Edema, Normal Capillary Refill, Other (gait and balance intact, no limp is noted) Neurological: No Motor/Sensory Deficits Psychiatric: Normal Affect, Normal Mood Skin Exam: Warm, Dry, Intact, Normal Color, No Rash Lymphatic: No Adenopathy Course - Vital Signs Last Recorded V/S: Last Vital Signs Temp 36.9 C 12/11/18 21:32 Pulse 83 12/11/18 21:32 Resp 16 12/11/18 21:32 BP 131/76 12/11/18 21:32 Pulse Ox 94 L 12/11/18 21:32 - Orders/Labs/Meds Labs: Laboratory Tests 12/11/18 12/11/18 12/11/18 Range/Units 22:05 22:20 22:20 WBC 8.7 (4.5-11.0) K/uL RBC 4.70 (3.30-5.50) M/uL Hgb 13.0 (12.0-15.0) g/dL Hct 40.8 (36.0-48.0) % MCV 87 (80-98) fL MCH 28 (27-31) pg MCHC 32 (32-36) % Plt Count 212 (150-400) K/uL Neut % (Auto) 56 (36-66) % Lymph % (Auto) 32 (24-44) % Lander % (Auto) 7 H (2-6) % Eos % (Auto) 4 (2-4) % Baso % (Auto) 1 (0-1) % PT 10.1 (9.5-12.0) sec INR 0.91 (0.80-1.20) D-Dimer, Quantitative 301 (0.0-400.0) ng/mL Sodium 142 (140-148) mmol/L Potassium 3.4 L (3.6-5.2) mmol/L Chloride 104 (100-108) mmol/L Carbon Dioxide 29 (21-32) mmol/L Anion Gap 12.4 (5.0-14.0) mmol/L BUN 12 (7-18) mg/dL Creatinine 0.9 (0.6-1.0) mg/dL Est Cr Clr Drug Dosing 52.24 mL/min Estimated GFR (MDRD) > 60 (>60) Glucose 101 (74-106) mg/dL Calcium 9.0 (8.5-10.1) mg/dL - Radiology Interpretation Free Text/Narrative:: doppler ultrasound of right leg is negative for DVT d-dimer and other labs are normal range discussed results with Mrs. Menchaca Plan: will treat for muscle strain. Mrs. Menchaca agreed with plan of care. relieved she doesn't have a blood clot advise to follow in Primary Care for recheck return to ER if has any concerns. Departure - Departure Time of Disposition: 22:56 Disposition: Home, Self-Care 01 Condition: Good Clinical Impression: Muscle strain of right lower leg Qualifiers: Encounter type: initial encounter Qualified Code(s): S86.911A - Strain of unspecified muscle(s) and tendon(s) at lower leg level, right leg, initial encounter - Discharge Information *PRESCRIPTION DRUG MONITORING PROGRAM REVIEWED*: Not Applicable *COPY OF PRESCRIPTION DRUG MONITORING REPORT IN PATIENT GRECIA: Not Applicable Instructions: Muscle Strain, [id number] Referrals: Mayito Grayson NP [Primary Care Provider] - Forms: ED Department Discharge Care Plan Goals: Muscle Strain -Doppler Ultrasound negative for DVT -rest -may apply ice or heat as needed for comfort -continue home medications as prescribed Return to ER if symptoms worsen or not improving. follow up in Primary Care for recheck on Thursday if has any concerns. - Problem List & Annotations (1) Muscle strain of right lower leg SNOMED Code(s): 53855090 Code(s): S86.911A - STRAIN OF UNSP MUSC/TEND AT LOWER LEG LEVEL, RIGHT LEG, INIT Status: Acute Priority: High Qualifiers: Encounter type: initial encounter Qualified Code(s): S86.911A - Strain of unspecified muscle(s) and tendon(s) at lower leg level, right leg, initial encounter - Problem List Review Problem List Initiated/Reviewed/Updated: Yes - Assessment/Plan Plan: Muscle Strain -Doppler Ultrasound negative for DVT -rest -may apply ice or heat as needed for comfort -continue home medications as prescribed Return to ER if symptoms worsen or not improving. follow up in Primary Care for recheck on Thursday if has any concerns.
--- NOTE | 2018-12-12 03:42 | CRLUS ---
INDICATION: Right leg pain, history of DVT. TECHNIQUE: Ultrasound venous duplex lower right extremity. Compression venous exam was performed using winston-scale, color Doppler, and spectral Doppler imaging. COMPARISON: None. FINDINGS: Sonographic imaging demonstrates the right common femoral, deep femoral, superficial femoral, popliteal, posterior tibial and greater saphenous and the contralateral left common femoral veins to be fully compressible with normal color Doppler blood flow. IMPRESSION: Normal right lower extremity venous ultrasound, no sign of deep venous thrombosis. Dictated by John James MD @ Dec 11 2018 11:17PM Signed by Dr. John James @ Dec 11 2018 11:19PM
== END 2018-12-11 23:05 | disposition home or self-care (01) ==
LOC: JP.ED 20:46
DX: S86.911A Strain of unspecified muscle(s) and tendon(s) at lower leg level, right leg, initial encounter (principal); E66.9 Obesity, unspecified; Z88.8 Allergy status to other drugs, medicaments and biological substances; Z88.1 Allergy status to other antibiotic agents; Z79.899 Other long term (current) drug therapy; Z88.5 Allergy status to narcotic agent; Z68.43 Body mass index [BMI] 50.0-59.9, adult; X58.XXXA Exposure to other specified factors, initial encounter
CPT/HCPCS: 36415; 80048; 85025; 85379; 85610; 93971-RT; 99284-25

== ENCOUNTER 2019-03-27 20:06 | Emergency (ER) | payer MEDICARE, MEDICAID ==
--- NOTE | 2019-03-27 21:45 | EDM.PDOC ---
ED HPI GENERAL MEDICAL PROBLEM - General Chief Complaint: Eye Problems Stated Complaint: RIGHT EYE SIGHT VISION ISSUES Time Seen by Provider: 03/27/19 20:31 Source of Information: Reports: Patient History Limitations: Reports: No Limitations - History of Present Illness INITIAL COMMENTS - FREE TEXT/NARRATIVE: This patient said that today she was watching TV and suddenly she lost vision in the lateral field of the right eye. This came and went several times during the day. She was also incontinent of urine all day so she took an extra dose of the medication she takes for this she did not remember the name of it. She felt a little bit dizzy and off balance. Her vision is back to normal now. About 4 years ago she had 5 brain aneurysms which were operated on. There were some surgical complications there was a thrombotic stroke and then there was some bleeding which required a repeat craniotomy. Afterwards she had weakness to the left side of the body however that resolved with rehabilitation. She did not develop any problems with speech or facial or extremity weakness. Presently she sees Dr. Boyd here in [place]. She takes aspirin 81 mg daily and pravastatin. denies pain Pain Score (Numeric/FACES): 0 - Related Data Allergies Allergy/AdvReac Type Severity Reaction Status Date / Time acetaminophen Allergy Severe Arrhythmias Verified 03/27/19 22:35 morphine Allergy Severe Vomiting Verified 03/27/19 22:35 naloxone HCl [From Narcan] Allergy Severe Anaphylactic Verified 03/27/19 22:35 Shock adhesive tape Allergy Hives Verified 03/27/19 22:35 erythromycin base Allergy Other Verified 03/27/19 22:35 lidocaine Allergy Other Verified 03/27/19 22:35 [From Xylocaine-Epinephrine] epinephrine AdvReac Other Verified 03/27/19 22:35 [From Xylocaine-Epinephrine] Home Meds: Home Meds amLODIPine [Norvasc] 2.5 mg PO DAILY 09/22/14 [History] Biotin 10 mg PO DAILY 01/31/16 [History] Naproxen Sodium [Aleve] 2 tab PO BID PRN 01/31/16 [History] FLUoxetine [PROzac] 80 mg PO DAILY 06/16/16 [History] traZODone 50 - 100 mg PO ASDIRECTED PRN 06/16/16 [History] Pravastatin [Pravachol] 40 mg PO DAILY 11/14/16 [History] Aspirin [Halfprin] 81 mg PO DAILY 07/21/17 [History] Mirabegron [Myrbetriq] 25 mg PO DAILY 07/21/17 [History] Mirtazapine 15 mg PO BEDTIME 07/21/17 [History] lamoTRIgine [Lamotrigine] 50 mg PO DAILY 07/21/17 [History] Cholecalciferol (Vitamin D3) [Vitamin D] 5,000 unit PO DAILY 03/27/19 [History] Cyanocobalamin (Vitamin B-12) [Vitamin B-12] 1,000 mcg PO DAILY 03/27/19 [ History] Past Medical History HEENT History: Reports: Impaired Vision Cardiovascular History: Reports: Arrhythmia, Blood Clots/VTE/DVT, High Cholesterol, Hypertension, SOB on Exertion, Other (See Below) Other Cardiovascular History: PE Respiratory History: Reports: Bronchitis, Recurrent, PE, Pneumonia, Recurrent, Sleep Apnea, SOB Other Respiratory History: PE Gastrointestinal History: Reports: Bowel Obstruction, Chronic Constipation, Diverticulosis Genitourinary History: Reports: UTI, 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: 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 Uterine Bleeding, , Spontaneous Musculoskeletal History: Reports: Fracture, Osteoarthritis Other Musculoskeletal History: right total knee Neurological History: Reports: CVA, Migraines, TIA, Vertigo Psychiatric History: Reports: Anxiety, Depression, Panic Attack, Psych Hospitalization(s), Suicide Attempt Endocrine/Metabolic History: Reports: Obesity/BMI 30+ Hematologic History: Reports: Anemia, Blood Transfusion(s), Iron Deficiency Dermatologic History: Reports: Urticaria - Infectious Disease History Infectious Disease History: Reports: Chicken Pox, Mumps - Past Surgical History HEENT Surgical History: Reports: Tonsillectomy Female Surgical History: Reports: Section, Hysterectomy, Salpingo- Oophorectomy Endocrine Surgical History: Reports: None Neurological Surgical History: Reports: Other (See Below) Other Neurological Surgeries/Procedures: 5 anurisms clipped in brain. Musculoskeletal Surgical History: Reports: Carpal Tunnel, Knee Replacement, Other (See Below) Other Musculoskeletal Surgeries/Procedures:: bilateral knee replacement Social & Family History - Family History Family Medical History: Noncontributory - Tobacco Use Smoking Status *Q: Never Smoker - Caffeine Use Caffeine Use: Reports: Coffee - Recreational Drug Use Recreational Drug Use: No - Living Situation & Occupation Living situation: Reports: Occupation: Disabled (lives [address] ED ROS GENERAL - Review of Systems Review Of Systems: See Below Constitutional: Reports: No Symptoms HEENT: Reports: Other (See history of present illness) Respiratory: Reports: No Symptoms Cardiovascular: Reports: No Symptoms Endocrine: Reports: No Symptoms GI/Abdominal: Reports: No Symptoms : Reports: Other (See history of present illness) Musculoskeletal: Reports: No Symptoms Skin: Reports: No Symptoms Neurological: Reports: Other (See history of present illness) Psychiatric: Reports: No Symptoms Hematologic/Lymphatic: Reports: No Symptoms ED EXAM GENERAL W FULL EYE - Physical Exam Exam: See Below Exam Limited By: No Limitations General Appearance: Alert, WD/WN, No Apparent Distress Eye Exam: Bilateral Eye: EOMI, Normal Fundi (Through undilated pupils), PERRL, Other (Visual san normal) Nose: Normal Inspection Throat/Mouth: Normal Oropharynx Head: Atraumatic Neck: Normal Inspection Respiratory/Chest: Lungs Clear Cardiovascular: Regular Rate, Rhythm, No Murmur GI/Abdominal: Non-Tender Extremities: Normal Inspection Neurological: Alert, Oriented, CN II-XII Intact, Normal Cognition, No Motor/ Sensory Deficits Psychiatric: Normal Affect, Normal Mood Skin Exam: Warm, Dry, Intact Course - Vital Signs Last Recorded V/S: Last Vital Signs Temp 36.4 C 03/27/19 20:37 Pulse 74 03/27/19 22:40 Resp 18 03/27/19 21:57 BP 109/62 03/27/19 22:40 Pulse Ox 93 L 03/27/19 21:57 - Orders/Labs/Meds Orders: Active Orders 24 hr Category Date Time Status Ang Neck [CT] Stat Exams 03/27/19 22:22 Taken Saline Lock Insert [OM.PC] Urgent Oth 03/27/19 22:23 Ordered Labs: Laboratory Tests 03/27/19 03/27/19 Range/Units 20:55 20:55 WBC 10.5 (4.5-11.0) K/uL RBC 5.03 (3.30-5.50) M/uL Hgb 13.6 (12.0-15.0) g/dL Hct 42.9 (36.0-48.0) % MCV 85 (80-98) fL MCH 27 (27-31) pg MCHC 32 (32-36) % Plt Count 234 (150-400) K/uL Neut % (Auto) 63 (36-66) % Lymph % (Auto) 27 (24-44) % Floyd % (Auto) 7 H (2-6) % Eos % (Auto) 2 (2-4) % Baso % (Auto) 1 (0-1) % Sodium 142 (140-148) mmol/L Potassium 3.5 L (3.6-5.2) mmol/L Chloride 104 (100-108) mmol/L Carbon Dioxide 28 (21-32) mmol/L Anion Gap 13.5 (5.0-14.0) mmol/L BUN 12 (7-18) mg/dL Creatinine 0.9 (0.6-1.0) mg/dL Est Cr Clr Drug Dosing 49.95 mL/min Estimated GFR (MDRD) > 60 (>60) Glucose 108 H (74-106) mg/dL Calcium 9.2 (8.5-10.1) mg/dL Total Bilirubin 0.3 (0.2-1.0) mg/dL AST 15 (15-37) U/L ALT 21 (12-78) U/L Alkaline Phosphatase 128 H (46-116) U/L Total Protein 6.6 (6.4-8.2) g/dL Albumin 3.6 (3.4-5.0) g/dL Globulin 3.0 (2.3-3.5) g/dL Albumin/Globulin Ratio 1.2 (1.2-2.2) Meds: Medications Discontinued Medications Generic Name Dose Route Start Last Admin Trade Name Freq PRN Reason Stop Dose Admin Sodium Chloride 100 mls @ 3 mls/sec 03/27/19 22:30 03/27/19 23:16 Normal Saline IV 3 mls/sec ASDIRECTED AUBREE Administration Iopamidol 100 ml 03/27/19 22:30 03/27/19 23:16 Isovue-370 (76%) IV 100 ml . DIRECTED AUBREE Administration Sodium Chloride 10 ml 03/27/19 22:23 03/27/19 22:30 Saline Flush FLUSH 10 ml ASDIRECTED PRN Administration Keep Vein Open Sodium Chloride 10 ml 03/27/19 22:29 03/27/19 23:16 Saline Flush FLUSH 03/27/19 22:30 10 ml ONETIME ONE Administration - Radiology Interpretation Free Text/Narrative:: Head CT showed no acute changes. CT angiography of the head and neck showed no acute changes in head or neck. There was some aneurysmal dilatation of the arch of the aorta at 3.6 cm but the radiologist felt this was chronic. - Re-Assessments/Exams Free Text/Narrative Re-Assessment/Exam: 03/28/19 01:[address] Covarrubias the neurologist at [facility]. He requested the CT angiography and then wanted me to talk with neurosurgery. I did speak with the neurosurgeon as well as interventional neurologist. There was confusion about what the radiologist was referring to and I had to call the radiologist to clarify that he was talking about the arch of the aorta. I then spoke with the Dr. Covarrubias again and he recommended that we just increase the aspirin to 81 mg 2 tablets daily or just change to Plavix and patient preferred to stay with aspirin. He recommended follow-up with neurology in about a month. Departure - Departure Time of Disposition: 00:45 Disposition: Home, Self-Care 01 Condition: Fair Clinical Impression: Unilateral hemianopia - Discharge Information Referrals: Mayito Grayson NP [Primary Care Provider] - Forms: ED Department Discharge Additional Instructions: Increase your 81 mg aspirin to 2 tablets daily. Plan to follow-up with neurology in about a month. If you have more these symptoms return to the ER - My Orders Last 24 Hours: My Active Orders 03/27/19 22:22 Ang Neck [CT] Stat 03/27/19 22:23 Saline Lock Insert [OM.PC] Urgent - Assessment/Plan Last 24 Hours: My Active Orders 03/27/19 22:22 Ang Neck [CT] Stat 03/27/19 22:23 Saline Lock Insert [OM.PC] Urgent
--- NOTE | 2019-03-27 22:02 | CRLCT ---
INDICATION: Transient right lateral hemianopsia TECHNIQUE: CT head without contrast. COMPARISON: 09/30/2018 FINDINGS: CSF spaces: Within normal limits for age. Brain parenchyma: The winston-white differentiation is normal. No sign of mass, hemorrhage, or midline shift. Changes of encephalomalacia right frontal parietal region with ex vacuo dilatation of the right lateral ventricle. Skull base and calvarium: The visualized paranasal sinuses and mastoid air cells demonstrate no acute or significant findings. The visualized orbits are grossly unremarkable. No skull fractures. Right frontal parietal craniotomy. IMPRESSION: No acute intracranial abnormalities. Right frontoparietal craniotomy with underlying changes of encephalomalacia. Dictated by Enrike Nicole MD @ 03/27/2019 10:01:12 PM Please note that all CT scans at this facility use dose modulation, iterative reconstruction, and/or weight-based dosing when appropriate to reduce radiation dose to as low as reasonably achievable. Dictated by: Enrike Nicole MD @ 03/27/2019 22:01:16 (Electronically Signed)
[2019-03-27] MEDS ORDERED: Sodium Chloride 0.9% 10 ML Syringe FLUSH PRN (22:23)
[2019-03-27] MEDS ORDERED: Sodium Chloride 0.9% 10 ML Syringe FLUSH ONE (22:29)
[2019-03-27] MEDS ORDERED: Sodium Chloride 0.9% 100 ML IV SCH (22:30)
[2019-03-27] MEDS ORDERED: Iopamidol 755 Mg/ML 100 ML Bottle IV SCH (22:30)
[2019-03-27 22:41] VITALS: BP 109/62; PULSE 74
--- NOTE | 2019-03-27 23:53 | CRLCT ---
INDICATION: Transient right temporal hemianopsia. TECHNIQUE: High resolution axial CT images acquired through the head and neck following rapid intravenous administration of iodinated contrast. Multiplanar MIPS of cranial and cervical vasculature performed. COMPARISON: Noncontrast head CT performed just prior. FINDINGS: CTA head: There has been a clipped right MCA aneurysm. No other aneurysm is identified. There is no evidence for a vascular malformation. There is normal filling of the intracranial vasculature; i.e. there is no large vessel occlusion or significant intracranial stenosis. Encephalomalacia is present in the right frontal lobe. CTA neck: The carotid and vertebral arteries are markedly tortuous. There is no significant stenosis or evidence for dissection. The soft tissues of the neck are within normal limits. Degenerative changes are noted in the cervical spine. The lung apices are clear. IMPRESSION: No large vessel occlusion. No significant carotid or vertebral artery stenosis or dissection. 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 Vincent Crawford MD Neurointerventional Radiologist [employer] Please note that all CT scans at this facility use dose modulation, iterative reconstruction, and/or weight-based dosing when appropriate to reduce radiation dose to as low as reasonably achievable. Dictated by Vincent Crawford MD @ Mar 28 2019 8:00AM Signed by Dr. Vincent Crawford @ Mar 28 2019 8:05AM
--- NOTE | 2019-03-28 10:46 | CRLCT ---
NDICATION: Transient right temporal hemianopsia. TECHNIQUE: High resolution axial CT images acquired through the head and neck following rapid intravenous administration of iodinated contrast. Multiplanar MIPS of cranial and cervical vasculature performed. COMPARISON: Noncontrast head CT performed just prior. FINDINGS: CTA head: There has been a clipped right MCA aneurysm. No other aneurysm is identified. There is no evidence for a vascular malformation. There is normal filling of the intracranial vasculature; i.e. there is no large vessel occlusion or significant intracranial stenosis. Encephalomalacia is present in the right frontal lobe. CTA neck: The carotid and vertebral arteries are markedly tortuous. There is no significant stenosis or evidence for dissection. The soft tissues of the neck are within normal limits. Degenerative changes are noted in the cervical spine. The lung apices are clear. IMPRESSION: No large vessel occlusion. No significant carotid or vertebral artery stenosis or dissection. 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 Vincent Crawford MD Neurointerventional Radiologist [facility] Please note that all CT scans at this facility use dose modulation, iterative reconstruction, and/or weight-based dosing when appropriate to reduce radiation dose to as low as reasonably achievable. Dictated by Vincent Crawford MD @ Mar 28 2019 8:00AM Signed by Dr. Vincent Crawford @ Mar 28 2019 8:05AM Dictated by: Vincent Crawford MD 03/28/19 at 0805 , 2317 T: , Doc Number: [id number] Copies To: Rico Aguilar MD; Mayito Grayson NP~ MTDD
== END 2019-03-28 00:57 | disposition home or self-care (01) ==
LOC: JP.ED 20:06
DX: H53.47 Heteronymous bilateral field defects (principal); E78.00 Pure hypercholesterolemia, unspecified; F41.9 Anxiety disorder, unspecified; F32.9 Major depressive disorder, single episode, unspecified; Z86.73 Personal history of transient ischemic attack (TIA), and cerebral infarction without residual deficits; Z79.899 Other long term (current) drug therapy; Z79.82 Long term (current) use of aspirin; Z88.5 Allergy status to narcotic agent; Z91.09 Other allergy status, other than to drugs and biological substances; Z88.1 Allergy status to other antibiotic agents; Z88.8 Allergy status to other drugs, medicaments and biological substances
CPT/HCPCS: 36415; 70450; 70496; 70498; 80053; 85025; 99284; J7030; Q9967

== ENCOUNTER 2020-06-22 21:09 | Emergency (ER) | payer MEDICARE, MEDICAID ==
[2020-06-22 21:39] VITALS: BP 126/52; PULSE 84
[2020-06-22] MEDS ORDERED: Sodium Chloride 0.9% 10 ML Syringe FLUSH PRN ×2 (21:51→23:39)
--- NOTE | 2020-06-22 21:54 | EDM.PDOC ---
ED HPI GENERAL MEDICAL PROBLEM - General Chief Complaint: Neurological Problem Stated Complaint: MED[facility] Time Seen by Provider: 06/22/20 21:46 Source of Information: Reports: Patient, RN Notes Reviewed History Limitations: Reports: No Limitations - History of Present Illness INITIAL COMMENTS - FREE TEXT/NARRATIVE: 64-year-old female presents emergency department today following a syncopal event she has had syncopal events in the past thought to be related to her aneurysms she has had multiple aneurysms clipped she has been evaluated in the clinic last week for syncopal event. 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 Upper Headache Pain Score (Numeric/FACES): 2 - Related Data Allergies Allergy/AdvReac Type Severity Reaction Status Date / Time acetaminophen Allergy Severe Arrhythmias Verified 06/22/20 21:32 morphine Allergy Severe Vomiting Verified 06/22/20 21:32 naloxone HCl [From Narcan] Allergy Severe Anaphylactic Verified 06/22/20 21:32 Shock adhesive tape Allergy Hives Verified 06/22/20 21:32 erythromycin base Allergy Other Verified 06/22/20 21:32 lidocaine Allergy Other Verified 06/22/20 21:32 [From Xylocaine-Epinephrine] epinephrine AdvReac Other Verified 06/22/20 21:32 [From Xylocaine-Epinephrine] Home Meds: Home Meds amLODIPine [Norvasc] 2.5 mg PO DAILY 09/22/14 [History] Biotin 10 mg PO DAILY 01/31/16 [History] Naproxen Sodium [Aleve] 2 tab PO BID PRN 01/31/16 [History] traZODone 50 - 100 mg PO ASDIRECTED PRN 06/16/16 [History] Pravastatin [Pravachol] 40 mg PO DAILY 11/14/16 [History] Aspirin [Halfprin] 81 mg PO DAILY 07/21/17 [History] Mirabegron [Myrbetriq] 25 mg PO DAILY 07/21/17 [History] lamoTRIgine [Lamotrigine] 50 mg PO DAILY 07/21/17 [History] Cholecalciferol (Vitamin D3) [Vitamin D] 5,000 unit PO DAILY 03/27/19 [History] Cyanocobalamin (Vitamin B-12) [Vitamin B-12] 1,000 mcg PO DAILY 03/27/19 [History] DULoxetine HCl [Duloxetine HCl] 40 mg PO DAILY 06/22/20 [History] Past Medical History HEENT History: Reports: Impaired Vision Cardiovascular History: Reports: Arrhythmia, Blood Clots/VTE/DVT, High Cholesterol, Hypertension, SOB on Exertion, Other (See Below) Other Cardiovascular History: PE Respiratory History: Reports: Bronchitis, Recurrent, PE, Pneumonia, Recurrent, Sleep Apnea, SOB Other Respiratory History: PE Gastrointestinal History: Reports: Bowel Obstruction, Chronic Constipation, Diverticulosis Genitourinary History: Reports: UTI, Recurrent [employer] 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: 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 Uterine Bleeding, , Spontaneous Musculoskeletal History: Reports: Fracture, Osteoarthritis Other Musculoskeletal History: right total knee Neurological History: Reports: Cerebral Aneurysms, CVA, Migraines, TIA, Vertigo Psychiatric History: Reports: Anxiety, Depression, Panic Attack, Psych Hospitalization(s), Suicide Attempt Endocrine/Metabolic History: Reports: Obesity/BMI 30+ Hematologic History: Reports: Anemia, Blood Transfusion(s), Iron Deficiency Dermatologic History: Reports: Urticaria - Infectious Disease History Infectious Disease History: Reports: Chicken Pox, Measles - Past Surgical History HEENT Surgical History: Reports: Tonsillectomy Female Surgical History: Reports: Section, Hysterectomy, Salpingo- Oophorectomy Endocrine Surgical History: Reports: None Neurological Surgical History: Reports: Other (See Below) Other Neurological Surgeries/Procedures: 5 anurisms clipped in brain. Musculoskeletal Surgical History: Reports: Carpal Tunnel, Knee Replacement, Other (See Below) Other Musculoskeletal Surgeries/Procedures:: bilateral knee replacement Social & Family History - Family History Family Medical History: Noncontributory - Tobacco Use Tobacco Use Status *Q: Never Tobacco User - Caffeine Use Caffeine Use: Reports: Coffee Caffeine Use Comment: lots of coffee - Recreational Drug Use Recreational Drug Use: No - Living Situation & Occupation Living situation: Reports: Occupation: Disabled (lives [address] ED ROS GENERAL - Review of Systems Review Of Systems: See Below Constitutional: Reports: No Symptoms HEENT: Reports: No Symptoms Respiratory: Reports: No Symptoms Cardiovascular: Reports: Syncope GI/Abdominal: Reports: No Symptoms Musculoskeletal: Reports: No Symptoms Neurological: Reports: Headache, Syncope ED EXAM, NEURO - Physical Exam Exam: See Below Exam Limited By: No Limitations General Appearance: Alert, WD/WN, No Apparent Distress Respiratory/Chest: No Respiratory Distress, Lungs Clear, Normal Breath Sounds, No Accessory Muscle Use, Chest Non-Tender Cardiovascular: Regular Rate, Rhythm, No Murmur GI/Abdominal: Soft, Non-Tender Neurological: Alert, Normal Mood/Affect, CN II-XII Intact, Normal Gait, No Motor/Sensory Deficits, Oriented x 3 Course - Vital Signs Last Recorded V/S: Last Vital Signs Temp 96.1 F L 06/22/20 21:34 Pulse 84 06/22/20 21:34 Resp 17 06/22/20 21:34 BP 126/52 L 06/22/20 21:34 Pulse Ox 96 06/22/20 21:34 - Orders/Labs/Meds Orders: Active Orders 24 hr Category Date Time Status Peripheral IV Care [RC] . DIRECTED Care 06/22/20 21:52 Active Iopamidol [Isovue-370 (76%)] Med 06/22/20 23:45 Active 100 ml IV . DIRECTED Sodium Chloride 0.9% [Normal Saline] 100 ml Med 06/22/20 23:45 Active IV ASDIRECTED Sodium Chloride 0.9% [Saline Flush] Med 06/22/20 21:51 Active 10 ml FLUSH ASDIRECTED PRN Sodium Chloride 0.9% [Saline Flush] Med 06/22/20 23:39 Active 10 ml FLUSH ONETIME PRN Peripheral IV Insertion Adult [OM.PC] Urgent Oth 06/22/20 21:51 Ordered Medication Orders Sodium Chloride (Normal Saline) 100 mls @ 3.5 mls/sec IV ASDIRECTED [facility] Last Admin: 06/23/20 00:22 Dose: 4 mls/sec Documented by: NAHOMY Iopamidol (Isovue-370 (76%)) 100 ml IV . DIRECTED [facility] Last Admin: 06/23/20 00:23 Dose: 100 ml Documented by: NAHOMY Sodium Chloride (Saline Flush) 10 ml FLUSH ASDIRECTED PRN PRN Reason: Keep Vein Open Sodium Chloride (Saline Flush) 10 ml FLUSH ONETIME PRN PRN Reason: per radiology protocol Last Admin: 06/23/20 00:00 Dose: 10 ml Documented by: NAHOMY Labs: Laboratory Tests 11/06/20 11/06/20 11/06/20 Range/Units 22:18 22:18 22:18 WBC 10.4 (4.5-11.0) K/uL RBC 4.87 (3.30-5.50) M/uL Hgb 13.1 (12.0-15.0) g/dL Hct 42.0 (36.0-48.0) % MCV 86 (80-98) fL MCH 27 (27-31) pg MCHC 31 L (32-36) % Plt Count 237 (150-400) K/uL Neut % (Auto) 62 (36-66) % Lymph % (Auto) 27 (24-44) % Major % (Auto) 7 H (2-6) % Eos % (Auto) 3 (2-4) % Baso % (Auto) 1 (0-1) % Sodium 140 (140-148) mmol/L Potassium 3.6 (3.6-5.2) mmol/L Chloride 104 (100-108) mmol/L Carbon Dioxide 28 (21-32) mmol/L Anion Gap 8.3 (5.0-14.0) mmol/L BUN 18 (7-18) mg/dL Creatinine 0.9 (0.6-1.0) mg/dL Est Cr Clr Drug Dosing 53.81 mL/min Estimated GFR (MDRD) > 60 (>60) Glucose 94 (74-106) mg/dL Lactic Acid 1.3 (0.4-2.0) mmol/L Calcium 9.2 (8.5-10.1) mg/dL Total Bilirubin 0.2 (0.2-1.0) mg/dL AST 16 (15-37) U/L ALT 22 (12-78) U/L Alkaline Phosphatase 100 (46-116) U/L Troponin I < 0.017 (0.000-0.056) ng/mL Total Protein 6.4 (6.4-8.2) g/dL Albumin 3.3 L (3.4-5.0) g/dL Globulin 3.1 (2.3-3.5) g/dL Albumin/Globulin Ratio 1.1 L (1.2-2.2) Meds: Medications Generic Name Dose Route Start Last Admin Trade Name Freq PRN Reason Stop Dose Admin Sodium Chloride 100 mls @ 3.5 mls/sec 06/22/20 23:45 06/23/20 00:22 Normal Saline IV 4 mls/sec ASDIRECTED AUBREE Administration Iopamidol 100 ml 06/22/20 23:45 06/23/20 00:23 Isovue-370 (76%) IV 100 ml . DIRECTED AUBREE Administration Sodium Chloride 10 ml 06/22/20 21:51 Saline Flush FLUSH ASDIRECTED PRN Keep Vein Open Sodium Chloride 10 ml 06/22/20 23:39 06/23/20 00:00 Saline Flush FLUSH 10 ml ONETIME PRN Administration per radiology protocol Departure - Departure Time of Disposition: 00:51 Disposition: Home, Self-Care 01 Condition: Fair Clinical Impression: Syncope Qualifiers: Syncope type: unspecified Qualified Code(s): R55 - Syncope and collapse - Discharge Information Instructions: Syncope, [id number] Referrals: PCP,None [Primary Care Provider] - Forms: ED Department Discharge Additional Instructions: Continue with your regular medications, please followup with your primary care provider in 3-5 days if not better, please call return to the emergency department with worsening of symptoms. Sepsis Event Note (ED) - Evaluation Sepsis Screening Result: No Definite Risk - Focused Exam Vital Signs: Vital Signs Temp Pulse Resp BP Pulse Ox 06/22/20 21:34 96.1 F L 84 17 126/52 L 96 - My Orders Last 24 Hours: My Active Orders 06/22/20 21:51 Sodium Chloride 0.9% [Saline Flush] 10 ml FLUSH ASDIRECTED PRN Peripheral IV Insertion Adult [OM.PC] Urgent 06/22/20 21:52 Peripheral IV Care [RC] . DIRECTED 06/22/20 23:39 Sodium Chloride 0.9% [Saline Flush] 10 ml FLUSH ONETIME PRN 06/22/20 23:45 Iopamidol [Isovue-370 (76%)] 100 ml IV . DIRECTED Sodium Chloride 0.9% [Normal Saline] 100 ml IV ASDIRECTED - Assessment/Plan Last 24 Hours: My Active Orders 06/22/20 21:51 Sodium Chloride 0.9% [Saline Flush] 10 ml FLUSH ASDIRECTED PRN Peripheral IV Insertion Adult [OM.PC] Urgent 06/22/20 21:52 Peripheral IV Care [RC] . DIRECTED 06/22/20 23:39 Sodium Chloride 0.9% [Saline Flush] 10 ml FLUSH ONETIME PRN 06/22/20 23:45 Iopamidol [Isovue-370 (76%)] 100 ml IV . DIRECTED Sodium Chloride 0.9% [Normal Saline] 100 ml IV ASDIRECTED Plan: Assessment Acuity = acute Site and laterality = syncopal event Etiology = unknown Manifestations = none Location of injury = Home Lab values = CBC, CMP, troponin CT scan and CTA showed no acute process no aneurysm recurrence Plan I did review lab CT scan results with her she is going to follow-up with her primary care in the next 3 to 5 days for reevaluation This note was dictated using [employer]ink[employer] voice recognition software please call with any questions on syntax or grammar.
--- NOTE | 2020-06-22 23:13 | CRLCT ---
Indication: Syncope, history of aneurysm post clipping Technique: Nonenhanced axial CT imaging through the head. Coronal reconstructions are provided. Comparison: CT head without contrast 03/27/2019 Findings: There is no intracranial hemorrhage, edema, or mass effect. The basal cisterns are clear. There is stable moderate size area of encephalomalacia in the right frontal lobe with ex vacuo enlargement of the anterior horn of right lateral ventricle. There is stable size of ventricles. Aneurysm clip is noted in the right middle cranial fossa. There is evidence of prior right frontal craniotomy. The visualized paranasal sinuses and mastoid air cells are aerated. Impression: 1. No acute intracranial process. 2. Stable surgical and chronic ischemic changes. Please note that all CT scans at this facility use dose modulation, iterative reconstruction, and/or weight-based dosing when appropriate to reduce radiation dose to as low as reasonably achievable. Dictated by Hanane Lubin MD @ Jun 22 2020 11:04PM Signed by Dr. Hanane Lubin @ Jun 22 2020 11:10PM
[2020-06-22] MEDS ORDERED: Iopamidol 755 Mg/ML 100 ML Bottle IV SCH (23:45)
[2020-06-22] MEDS ORDERED: Sodium Chloride 0.9% 100 ML IV SCH (23:45)
--- NOTE | 2020-06-23 00:45 | CRLCT ---
DATE: 06/22/2020. CLINICAL HISTORY: Patient with syncopal episode, history of cerebral aneurysm. TECHNIQUE: Standard helical CT image acquisition through the head was performed after intravenous contrast bolus enhancement. Multiplanar reconstructed images were performed and interpreted. COMPARISON: None available. Correlation with head CT dated 06/22/2020. FINDINGS: Sequela of postsurgical changes related to prior right pterional craniectomy for surgical clipping right MCA bifurcation aneurysm. No evidence of residual/recurrent aneurysm. The M1 segment as well as the posterior division branches of the MCA are widely patent and normal in appearance. Diminutive appearance of the anterior division branches of the right MCA with associated large area of encephalomalacia involving this territory, as detailed on the same-day head CT examination. The petrous, cavernous, and supraclinoid segments of the bilateral internal carotid arteries are patent. The anterior cerebral arteries and left middle cerebral artery are within normal limits. The anterior communicating artery is visualized and within normal limits. The left vertebral artery is dominant. The intracranial vertebral arteries are patent. The basilar trunk and posterior cerebral arteries are patent. There is normal opacification of major intracranial venous structures. IMPRESSION: 1. 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 No evidence of residual/recurrent cerebral aneurysm. 2. No new cerebral aneurysm. 3. No intracranial proximal large vessel occlusion or flow-limiting luminal stenosis. Please note that all CT scans at this facility use dose modulation, iterative reconstruction, and/or weight-based dosing when appropriate to reduce radiation dose to as low as reasonably achievable. Dictated by Uriel Polanco MD @ Jun 23 2020 8:40AM Signed by Dr. Uriel Polanco @ Jun 23 2020 8:55AM
== END 2020-06-23 01:00 | disposition home or self-care (01) ==
LOC: JP.ED 21:09
DX: R55 Syncope and collapse (principal); E78.00 Pure hypercholesterolemia, unspecified; I10 Essential (primary) hypertension; M19.90 Unspecified osteoarthritis, unspecified site; F41.9 Anxiety disorder, unspecified; F32.9 Major depressive disorder, single episode, unspecified; E66.9 Obesity, unspecified; Z68.43 Body mass index [BMI] 50.0-59.9, adult; Z88.6 Allergy status to analgesic agent; Z88.5 Allergy status to narcotic agent; Z91.048 Other nonmedicinal substance allergy status; Z88.1 Allergy status to other antibiotic agents; Z88.4 Allergy status to anesthetic agent; Z79.82 Long term (current) use of aspirin; Z79.899 Other long term (current) drug therapy; Z86.73 Personal history of transient ischemic attack (TIA), and cerebral infarction without residual deficits
CPT/HCPCS: 36415; 70450; 70496; 80053; 83605; 84484; 85025; 99284; Q9967; 99283

== ENCOUNTER 2020-06-26 15:52 | Emergency (ER) | payer MEDICARE, MEDICAID ==
[2020-06-26 17:01] VITALS: BP 126/87; PULSE 89
--- NOTE | 2020-06-26 17:42 | EDM.PDOC ---
ED HPI GENERAL MEDICAL PROBLEM - General Chief Complaint: Neurological Problem Stated Complaint: HIGH BLOOD PRESSURE Time Seen by Provider: 06/26/20 17:20 Source of Information: Reports: Patient History Limitations: Reports: No Limitations - History of Present Illness INITIAL COMMENTS - FREE TEXT/NARRATIVE: 64-year-old female with a history of strokes and aneurysms in the past was in here recently for evaluation because of neurologic changes and hypertension and had negative scans other than encephalomalacia. Today she was concerned because she felt strange and her blood pressure at home was elevated. However upon arrival here her blood pressure has been fine on my examination time she was 128/80. She feels fine and wants to go home. She has had anxiety recently rel ative to where she will spend the winter but seems to have resolved that issue Onset: Today Duration: Hour(s):, Improving Improves with: Reports: None Worsens with: Reports: None Associated Symptoms: Reports: No Other Symptoms - Related Data Allergies Allergy/AdvReac Type Severity Reaction Status Date / Time acetaminophen Allergy Severe Arrhythmias Verified 06/26/20 17:12 morphine Allergy Severe Vomiting Verified 06/26/20 17:12 naloxone HCl [From Narcan] Allergy Severe Anaphylactic Verified 06/26/20 17:12 Shock adhesive tape Allergy Hives Verified 06/26/20 17:12 erythromycin base Allergy Other Verified 06/26/20 17:12 lidocaine Allergy Other Verified 06/26/20 17:12 [From Xylocaine-Epinephrine] epinephrine AdvReac Other Verified 06/26/20 17:12 [From Xylocaine-Epinephrine] Home Meds: Home Meds amLODIPine [Norvasc] 2.5 mg PO DAILY 09/22/14 [History] Biotin 10 mg PO DAILY 01/31/16 [History] Naproxen Sodium [Aleve] 2 tab PO BID PRN 01/31/16 [History] traZODone 50 - 100 mg PO ASDIRECTED PRN 06/16/16 [History] Pravastatin [Pravachol] 40 mg PO DAILY 11/14/16 [History] Aspirin [Halfprin] 81 mg PO DAILY 07/21/17 [History] Mirabegron [Myrbetriq] 25 mg PO DAILY 07/21/17 [History] lamoTRIgine [Lamotrigine] 50 mg PO DAILY 07/21/17 [History] Cholecalciferol (Vitamin D3) [Vitamin D] 5,000 unit PO DAILY 03/27/19 [History] Cyanocobalamin (Vitamin B-12) [Vitamin B-12] 1,000 mcg PO DAILY 03/27/19 [History] DULoxetine HCl [Duloxetine HCl] 40 mg PO DAILY 06/22/20 [History] Past Medical History HEENT History: Reports: Impaired Vision Cardiovascular History: Reports: Arrhythmia, Blood Clots/VTE/DVT, High Cholesterol, Hypertension, SOB on Exertion, Other (See Below) Other Cardiovascular History: PE Respiratory History: Reports: Bronchitis, Recurrent, PE, Pneumonia, Recurrent, Sleep Apnea, SOB Other Respiratory History: PE Gastrointestinal History: Reports: Bowel Obstruction, Chronic Constipation, Diverticulosis Genitourinary History: Reports: UTI, Recurrent [employer]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: 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 Uterine Bleeding, , Spontaneous Musculoskeletal History: Reports: Fracture, Osteoarthritis Other Musculoskeletal History: right total knee Neurological History: Reports: Cerebral Aneurysms, CVA, Migraines, TIA, Vertigo Psychiatric History: Reports: Anxiety, Depression, Panic Attack, Psych Hospitalization(s), Suicide Attempt Endocrine/Metabolic History: Reports: Obesity/BMI 30+ Hematologic History: Reports: Anemia, Blood Transfusion(s), Iron Deficiency Dermatologic History: Reports: Urticaria - Infectious Disease History Infectious Disease History: Reports: Chicken Pox, Measles - Past Surgical History HEENT Surgical History: Reports: Tonsillectomy Female Surgical History: Reports: Section, Hysterectomy, Salpingo- Oophorectomy Endocrine Surgical History: Reports: None Neurological Surgical History: Reports: Other (See Below) Other Neurological Surgeries/Procedures: 5 anurisms clipped in brain. Musculoskeletal Surgical History: Reports: Carpal Tunnel, Knee Replacement, Other (See Below) Other Musculoskeletal Surgeries/Procedures:: bilateral knee replacement Social & Family History - Family History Family Medical History: No Pertinent Family History - Tobacco Use Tobacco Use Status *Q: Never Tobacco User - Caffeine Use Caffeine Use: Reports: Coffee Caffeine Use Comment: lots of coffee - Recreational Drug Use Recreational Drug Use: No - Living Situation & Occupation Living situation: Reports: Occupation: Disabled (lives [address] ED ROS GENERAL - Review of Systems Review Of Systems: See Below Constitutional: Reports: No Symptoms HEENT: Reports: No Symptoms Respiratory: Reports: No Symptoms Cardiovascular: Reports: No Symptoms Endocrine: Reports: No Symptoms GI/Abdominal: Reports: No Symptoms : Reports: No Symptoms Musculoskeletal: Reports: No Symptoms Skin: Reports: No Symptoms Neurological: Reports: No Symptoms ED EXAM, NEURO - Physical Exam Exam: See Below Exam Limited By: No Limitations General Appearance: Alert, No Apparent Distress Ears: Normal External Exam Nose: Normal Inspection Throat/Mouth: Normal Inspection Head Exam: Atraumatic, Normocephalic Neck: Normal Inspection Respiratory/Chest: No Respiratory Distress Cardiovascular: Regular Rate, Rhythm, No Murmur GI/Abdominal: Normal Bowel Sounds, Soft, Non-Tender, Other (Huge abdomen) Neurological: Alert, Normal Mood/Affect, No Motor/Sensory Deficits, Oriented x 3 Extremities: Other (Very large) Psychiatric: Normal Affect, Normal Mood Skin Exam: Warm, Dry, Intact, Normal Color Course - Vital Signs Text/Narrative:: 64-year-old female with a history of aneurysms and possible stroke with encephalomalacia known was hypertensive today leading to her visit but is normotensive here in the department and feels much better and ready to go home Last Recorded V/S: Last Vital Signs Temp 36.3 C 06/26/20 17:18 Pulse 89 06/26/20 17:18 Resp 16 06/26/20 17:18 BP 126/87 06/26/20 17:18 Pulse Ox 97 06/26/20 17:18 Departure - Departure Time of Disposition: 17:43 Disposition: Home, Self-Care 01 Condition: Good Clinical Impression: Encephalomalacia, Hypertension - Discharge Information Referrals: PCP,None [Primary Care Provider] - Forms: ED Department Discharge Sepsis Event Note (ED) - Evaluation Sepsis Screening Result: No Definite Risk - Focused Exam Vital Signs: Vital Signs Temp Pulse Resp BP Pulse Ox 06/26/20 17:18 36.3 C 89 16 126/87 97 06/26/20 16:59 36.3 C 89 16 126/87 97
== END 2020-06-26 18:06 | disposition home or self-care (01) ==
LOC: JP.ED 15:52
DX: I10 Essential (primary) hypertension (principal); G93.89 Other specified disorders of brain; E78.00 Pure hypercholesterolemia, unspecified; F32.9 Major depressive disorder, single episode, unspecified; E66.9 Obesity, unspecified; M19.90 Unspecified osteoarthritis, unspecified site; Z68.43 Body mass index [BMI] 50.0-59.9, adult; Z88.5 Allergy status to narcotic agent; Z91.048 Other nonmedicinal substance allergy status; Z88.1 Allergy status to other antibiotic agents; Z79.82 Long term (current) use of aspirin; Z79.899 Other long term (current) drug therapy; Z88.4 Allergy status to anesthetic agent; Z86.73 Personal history of transient ischemic attack (TIA), and cerebral infarction without residual deficits
CPT/HCPCS: 99283

== ENCOUNTER 2020-10-10 17:25 | Emergency (ER) | payer MEDICARE, MEDICAID ==
[2020-10-10 17:43] VITALS: BP 140/87; PULSE 89
--- NOTE | 2020-10-10 19:14 | EDM.PDOCBH ---
ED HPI GENERAL MEDICAL PROBLEM - General Chief Complaint: Behavioral/Psych Stated Complaint: MED. EVDACIA Time Seen by Provider: 10/10/20 18:09 Source of Information: Reports: Patient, Old Records History Limitations: Reports: No Limitations - History of Present Illness INITIAL COMMENTS - FREE TEXT/NARRATIVE: Genia is a 64-year-old female presenting to the ED for evaluation of suicidal ideation. Genia tells me that she is 34 years sober from alcohol abuse. She grew up in a family of alcoholics. She has had ongoing issues with depression for many years and has been on fluoxetine for at least 10 years. She sees a nurse practitioner in the [facility] from Department of psychiatry named Eunice who she contacted today with her concerns of suicide ideation. She was ins tructed to come to the ED for evaluation. The patient does have a past medical history significant for suicide attempt in 1999 where she overdosed on trazodone. She was hospitalized at [facility] and stabilized in inpatient psychiatry. She continues to be active with Alcoholics Anonymous. She does report her current issue started 4 days ago when she started to have a downward spiral of her mood, attention, and inability to sleep. She states that her brain just keeps clicking along and even though she is extremely tired she just cannot stay asleep. She has a recurring dream that her grandson is home and she gets up to check on him only to find that he is not there. She does not checks her door to see if it is locked and realizes that he was never there. In addition to the insomnia and difficulty with concentration, she is also having issues with memory. This is partially related to her stroke that occurred when she had a intracranial bleed after having a clipping procedure for cerebral aneurysms. This occurred roughly 4 years ago at [facility]. It does sound like it affected [place] area and has affected her word finding ability. 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 Stroke is also left her with weakness in the right arm and hand which is her dominant side. The memory issues are short-term memory. In addition to this another stressor is her s ocial isolation due to COVID-19. The patient lives in [address] and isolates away from other people. This is deeply affected her mood. In addition, with winter she is afraid to fall on the ice so she has not been outside much. This also is likely contributing to her mood. She does report having increasing stressors but does not elaborate on what they are. She is a stress eater. When asked if she had a plan for suicide ideation, she reports that she checked all her pills to see if there was anything she had that she could overdose on but sadly could not find a combination that would do the job. She is tearful but somewhat forthcoming with information. - Related Data Allergies Allergy/AdvReac Type Severity Reaction Status Date / Time acetaminophen Allergy Severe Arrhythmias Verified 10/10/20 17:30 morphine Allergy Severe Vomiting Verified 10/10/20 17:30 naloxone HCl [From Narcan] Allergy Severe Anaphylactic Verified 10/10/20 17:30 Shock adhesive tape Allergy Hives Verified 10/10/20 17:30 erythromycin base Allergy Other Verified 10/10/20 17:30 lidocaine Allergy Other Verified 10/10/20 17:30 [From Xylocaine-Epinephrine] epinephrine AdvReac Other Verified 10/10/20 17:30 [From Xylocaine-Epinephrine] Home Meds: Home Meds amLODIPine [Norvasc] 2.5 mg PO DAILY 09/22/14 [History] Biotin 10 mg PO DAILY 01/31/16 [History] traZODone 50 - 100 mg PO ASDIRECTED PRN 06/16/16 [History] Pravastatin [Pravachol] 40 mg PO DAILY 11/14/16 [History] Aspirin [Halfprin] 81 mg PO DAILY 07/21/17 [History] Mirabegron [Myrbetriq] 25 mg PO DAILY 07/21/17 [History] lamoTRIgine [Lamotrigine] 50 mg PO DAILY 07/21/17 [History] Cholecalciferol (Vitamin D3) [Vitamin D] 5,000 unit PO DAILY 03/27/19 [History] Cyanocobalamin (Vitamin B-12) [Vitamin B-12] 1,000 mcg PO DAILY 03/27/19 [History] DULoxetine HCl [Duloxetine HCl] 40 mg PO DAILY 06/22/20 [History] Past Medical History HEENT History: Reports: Impaired Vision Cardiovascular History: Reports: Arrhythmia, Blood Clots/VTE/DVT, High Cholesterol, Hypertension, SOB on Exertion, Other (See Below) Other Cardiovascular History: PE Respiratory History: Reports: Bronchitis, Recurrent, PE, Pneumonia, Recurrent, Sleep Apnea, SOB Other Respiratory History: PE Gastrointestinal History: Reports: Bowel Obstruction, Chronic Constipation, Diverticulosis Genitourinary History: Reports: UTI, Recurrent 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: 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, , Spontaneous Musculoskeletal History: Reports: Fracture, Osteoarthritis Other Musculoskeletal History: right total knee Neurological History: Reports: Cerebral Aneurysms, CVA, Migraines, TIA, Vertigo Psychiatric History: Reports: Anxiety, Depression, Panic Attack, Psych Hospitalization(s), Suicide Attempt Endocrine/Metabolic History: Reports: Obesity/BMI 30+ Hematologic History: Reports: Anemia, Blood Transfusion(s), Iron Deficiency Dermatologic History: Reports: Urticaria - Infectious Disease History Infectious Disease History: Reports: Chicken Pox, Measles - Past Surgical History Head Surgeries/Procedures: Reports: None HEENT Surgical History: Reports: Tonsillectomy Cardiovascular Surgical History: Reports: Other (See Below) Other Cardiovascular Surgeries/Procedures: angiogram Respiratory Surgical History: Reports: None GI Surgical History: Reports: None Female Surgical History: Reports: Section, Hysterectomy, Salpingo- Oophorectomy Endocrine Surgical History: Reports: None Neurological Surgical History: Reports: Other (See Below) Other Neurological Surgeries/Procedures: 5 anurisms clipped in brain. Musculoskeletal Surgical History: Reports: Carpal Tunnel, Knee Replacement, Other (See Below) Other Musculoskeletal Surgeries/Procedures:: bilateral knee replacement Dermatological Surgical History: Reports: Other (See Below) Social & Family History - Family History Family Medical History: No Pertinent Family History - Tobacco Use Tobacco Use Status *Q: Never Tobacco User Second Hand Smoke Exposure: No - Caffeine Use Caffeine Use: Reports: Coffee Caffeine Use Comment: lots of coffee - Recreational Drug Use Recreational Drug Use: No - Living Situation & Occupation Living situation: Reports: Occupation: Disabled (lives [address] ED [facility] GENERAL - Review of Systems Review Of Systems: See Below Constitutional: Reports: No Symptoms HEENT: Reports: No Symptoms Respiratory: Reports: No Symptoms Cardiovascular: Reports: No Symptoms Endocrine: Reports: No Symptoms GI/Abdominal: Reports: No Symptoms : Reports: No Symptoms Musculoskeletal: Reports: No Symptoms Skin: Reports: No Symptoms Neurological: Reports: Difficulty Walking, Weakness (Chronic right upper and lower extremity weakness since her cerebral hemorrhage. Patient walks with a cane.), Other (Short-term memory issues) Psychiatric: Reports: Depression, Mood Lability, Suicidal Ideation Hematologic/Lymphatic: Reports: No Symptoms Immunologic: Reports: No Symptoms ED EXAM, BEHAVIORAL HEALTH - Physical Exam Exam: See Below Exam Limited By: No Limitations General Appearance: Alert, Anxious, Mild Distress Eye Exam: Bilateral Eye: EOMI, PERRL Head: Atraumatic, Normocephalic Neck: Normal Inspection, Supple Respiratory/Chest: No Respiratory Distress, Lungs Clear, Normal Breath Sounds Cardiovascular: Normal Peripheral Pulses, Regular Rate, Rhythm, No Murmur GI/Abdominal: Normal Bowel Sounds, Soft, Non-Tender Extremities: Normal Inspection Neurological: Alert, CN II-XII Intact, Normal Cognition, Oriented x 3, Abnormal Motor (Minimal right hand weakness which is chronic since her intracerebral bleed.) Psychiatric: Alert, Normal Cognition, Oriented, Depressed Mood, Tearful, Withdrawn Skin Exam: Warm, Dry, Intact, Normal color COURSE, BEHAVIORAL HEALTH COMP - Course Vital Signs: Last Vital Signs Temp 35.7 C L 10/10/20 17:43 Pulse 89 10/10/20 17:43 Resp 16 10/10/20 17:43 BP 140/87 10/10/20 17:43 Pulse Ox 93 L 10/10/20 17:43 Orders, Labs, Meds: Laboratory Tests 10/10/20 10/10/20 10/10/20 Range/Units 19:07 19:07 19:07 WBC 10.0 (4.5-11.0) K/uL RBC 4.74 (3.30-5.50) M/uL Hgb 13.2 (12.0-15.0) g/dL Hct 41.8 (36.0-48.0) % MCV 88 (80-98) fL MCH 28 (27-31) pg MCHC 32 (32-36) % Plt Count 236 (150-400) K/uL Neut % (Auto) 66 (36-66) % Lymph % (Auto) 21 L (24-44) % [place] % (Auto) 6 (2-6) % Eos % (Auto) 7 H (2-4) % Baso % (Auto) 1 (0-1) % Sodium 144 (140-148) mmol/L Potassium 3.6 (3.6-5.2) mmol/L Chloride 105 (100-108) mmol/L Carbon Dioxide 30 (21-32) mmol/L Anion Gap 9.0 (5.0-14.0) mmol/L BUN 10 (7-18) mg/dL Creatinine 0.8 (0.6-1.0) mg/dL Est Cr Clr Drug Dosing 63.09 mL/min Estimated GFR (MDRD) > 60 (>60) Glucose 97 (74-106) mg/dL Calcium 9.1 (8.5-10.1) mg/dL Total Bilirubin 0.2 (0.2-1.0) mg/dL AST 12 L (15-37) U/L ALT 17 (12-78) U/L Alkaline Phosphatase 113 (46-116) U/L Total Protein 6.3 L (6.4-8.2) g/dL Albumin 3.3 L (3.4-5.0) g/dL Globulin 3.0 (2.3-3.5) g/dL Albumin/Globulin Ratio 1.1 L (1.2-2.2) Urine Color (YELLOW) Urine Appearance (CLEAR) Urine pH (5.0-8.0) Ur Specific [place] (1.008-1.030) Urine Protein (NEGATIVE) mg/dL Urine Glucose (UA) (NEGATIVE) mg/dL Urine Ketones (NEGATIVE) mg/dL Urine Occult Blood (NEGATIVE) Urine Nitrite (NEGATIVE) Urine Bilirubin (NEGATIVE) Urine Urobilinogen (0.2-1.0) EU/dL Ur Leukocyte Esterase (NEGATIVE) Urine RBC (0-5) Urine WBC (0-5) Ur Epithelial Cells Amorphous Sediment Urine Bacteria Urine Mucus Salicylates 0.9 L (2.0-20.0) mg/dL Urine Opiates Screen (NEGATIVE) Ur Oxycodone Screen (NEGATIVE) Urine Methadone Screen (NEGATIVE) Ur Propoxyphene Screen (NEGATIVE) Acetaminophen 0.0 L (10.0-30.0) ug/mL Ur Barbiturates Screen (NEGATIVE) Ur Tricyclics Screen (NEGATIVE) Ur Phencyclidine Scrn (NEGATIVE) Ur Amphetamine Screen (NEGATIVE) U Methamphetamines Scrn (NEGATIVE) Urine MDMA Screen (NEGATIVE) U Benzodiazepines Scrn (NEGATIVE) U Cocaine Metab Screen (NEGATIVE) U Marijuana (THC) Screen (NEGATIVE) 10/10/20 10/10/20 Range/Units 19:58 20:16 WBC (4.5-11.0) K/uL RBC (3.30-5.50) M/uL Hgb (12.0-15.0) g/dL Hct (36.0-48.0) % MCV (80-98) fL MCH (27-31) pg MCHC (32-36) % Plt Count (150-400) K/uL Neut % (Auto) (36-66) % Lymph % (Auto) (24-44) % [place] % (Auto) (2-6) % Eos % (Auto) (2-4) % Baso % (Auto) (0-1) % Sodium (140-148) mmol/L Potassium (3.6-5.2) mmol/L Chloride (100-108) mmol/L Carbon Dioxide (21-32) mmol/L Anion Gap (5.0-14.0) mmol/L BUN (7-18) mg/dL Creatinine (0.6-1.0) mg/dL Est Cr Clr Drug Dosing mL/min Estimated GFR (MDRD) (>60) Glucose (74-106) mg/dL Calcium (8.5-10.1) mg/dL Total Bilirubin (0.2-1.0) mg/dL AST (15-37) U/L ALT (12-78) U/L Alkaline Phosphatase (46-116) U/L Total Protein (6.4-8.2) g/dL Albumin (3.4-5.0) g/dL Globulin (2.3-3.5) g/dL Albumin/Globulin Ratio (1.2-2.2) Urine Color Yellow (YELLOW) Urine Appearance Slightly cloudy A (CLEAR) Urine pH 6.0 (5.0-8.0) Ur Specific [place] 1.025 (1.008-1.030) Urine Protein Negative (NEGATIVE) mg/dL Urine Glucose (UA) Negative (NEGATIVE) mg/dL Urine Ketones Negative (NEGATIVE) mg/dL Urine Occult Blood Negative (NEGATIVE) Urine Nitrite Negative (NEGATIVE) Urine Bilirubin Negative (NEGATIVE) Urine Urobilinogen 0.2 (0.2-1.0) EU/dL Ur Leukocyte Esterase Negative (NEGATIVE) Urine RBC Not seen (0-5) Urine WBC 0-5 (0-5) Ur Epithelial Cells Few Amorphous Sediment Moderate Urine Bacteria Few Urine Mucus Many Salicylates (2.0-20.0) mg/dL Urine Opiates Screen Negative (NEGATIVE) Ur Oxycodone Screen Negative (NEGATIVE) Urine Methadone Screen Negative (NEGATIVE) Ur Propoxyphene Screen Negative (NEGATIVE) Acetaminophen (10.0-30.0) ug/mL Ur Barbiturates Screen Negative (NEGATIVE) Ur Tricyclics Screen Negative (NEGATIVE) Ur Phencyclidine Scrn Negative (NEGATIVE) Ur Amphetamine Screen Negative (NEGATIVE) U Methamphetamines Scrn Negative (NEGATIVE) Urine MDMA Screen Negative (NEGATIVE) U Benzodiazepines Scrn Negative (NEGATIVE) U Cocaine Metab Screen Negative (NEGATIVE) U Marijuana (THC) Screen Negative (NEGATIVE) Discharge vs Psych Eval/Treatment:: 10/10/20 22:26 She says that the trazodone has not been helping with her sleep, so I recommend that she take melatonin 10 mg tonight. At this time, she is suitable for discharge home in satisfactory condition. Although she feels depressed, she feels like she is over the crisis at this time and will return if she starts to feel like she is getting back into crisis again. The mobile crisis team will reach out to her in the morning and give her some additional support for stabilization. She should also follow-up with her nurse practitioner Eunice to look into alternatives to the fluoxetine. Departure - Departure Time of Disposition: 22:23 Disposition: Home, Self-Care 01 Clinical Impression: Major depression, recurrent Qualifiers: Active/Remission status: currently active Major depression episode severity: moderate Qualified Code(s): F33.1 - Major depressive disorder, recurrent, moderate - Discharge Information *PRESCRIPTION DRUG MONITORING PROGRAM REVIEWED*: Not Applicable *COPY OF PRESCRIPTION DRUG MONITORING REPORT IN PATIENT GRECIA: Not Applicable Referrals: Mayito Grayson NP [Primary Care Provider] - Forms: ED Department Discharge Care Plan Goals: Patient was assessed by mobile crisis unit. They will reach out to her in the morning for some stabilization contacts. At this time she is wanting to go home and sleep. I recommend that she take 10 mg of melatonin. Sepsis Event Note (ED) - Evaluation Sepsis Screening Result: No Definite Risk - Focused Exam Vital Signs: Vital Signs Temp Pulse Resp BP Pulse Ox 10/10/20 17:43 35.7 C L 89 16 140/87 93 L 10/10/20 17:42 35.7 C L 89 16 140/87 93 L - Problem List & Annotations (1) Major depression, recurrent SNOMED Code(s): 32823953 Code(s): F33.9 - MAJOR DEPRESSIVE DISORDER, RECURRENT, UNSPECIFIED Status: Acute Priority: High Current Visit: Yes Qualifiers: Active/Remission status: currently active Major depression episode severity: moderate Qualified Code(s): F33.1 - Major depressive disorder, recurrent, moderate - Problem List Review Problem List Initiated/Reviewed/Updated: Yes
== END 2020-10-10 22:56 | disposition home or self-care (01) ==
LOC: JP.ED 17:25
DX: F33.1 Major depressive disorder, recurrent, moderate (principal); E78.00 Pure hypercholesterolemia, unspecified; M19.90 Unspecified osteoarthritis, unspecified site; Z86.711 Personal history of pulmonary embolism; E66.9 Obesity, unspecified; Z68.43 Body mass index [BMI] 50.0-59.9, adult; Z79.899 Other long term (current) drug therapy; Z79.82 Long term (current) use of aspirin; Z88.6 Allergy status to analgesic agent; Z88.5 Allergy status to narcotic agent; Z91.048 Other nonmedicinal substance allergy status; Z88.1 Allergy status to other antibiotic agents; Z88.4 Allergy status to anesthetic agent; Z88.8 Allergy status to other drugs, medicaments and biological substances; Z86.73 Personal history of transient ischemic attack (TIA), and cerebral infarction without residual deficits
CPT/HCPCS: 36415; 80053; 80143; 80179; 80305-QW; 81001; 85025; 99284

== ENCOUNTER 2021-04-04 16:23 | Emergency (ER) | payer MEDICARE, MEDICAID ==
--- NOTE | 2021-04-04 17:00 | EDM.PDOC ---
ED HPI GENERAL MEDICAL PROBLEM - General Chief Complaint: Chest Pain Stated Complaint: VIA [facility] Time Seen by Provider: 04/04/21 16:50 Source of Information: Reports: Patient, EMS, Old Records, RN History Limitations: Reports: No Limitations - History of Present Illness INITIAL COMMENTS - FREE TEXT/NARRATIVE: 65 yo female resident of a local senior apartment presents with intermittent chest pain today. Has a PHx of anxiety, but not known CAD. Arrives via EMS. Was at rest each time she re-developed sx's. No tx prior to arrival. Has a positive FHx of CAD. Onset: Today, Sudden Onset Date: 04/04/21 Duration: Minutes: (about 30 sec each episode.), Intermittent Location: Reports: Chest Quality: Reports: Pressure Severity: Mild Improves with: Reports: Other (unsure) Worsens with: Reports: Other (unsure) Context: Reports: Other (See HPI) Associated Symptoms: Reports: Chest Pain, Shortness of Breath (maybe anxiety?). 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) (none) - Related Data Allergies Allergy/AdvReac Type Severity Reaction Status Date / Time acetaminophen Allergy Severe Arrhythmias Verified 04/04/21 16:33 morphine Allergy Severe Vomiting Verified 04/04/21 16:33 naloxone HCl [From Narcan] Allergy Severe Anaphylactic Verified 04/04/21 16:33 Shock adhesive tape Allergy Hives Verified 04/04/21 16:33 erythromycin base Allergy Other Verified 04/04/21 16:33 lidocaine Allergy Other Verified 04/04/21 16:33 [From Xylocaine-Epinephrine] epinephrine AdvReac Other Verified 04/04/21 16:33 [From Xylocaine-Epinephrine] Home Meds: Home Meds amLODIPine [Norvasc] 2.5 mg PO DAILY 09/22/14 [History] Biotin 10 mg PO DAILY 01/31/16 [History] traZODone 50 - 100 mg PO ASDIRECTED PRN 06/16/16 [History] Pravastatin [Pravachol] 40 mg PO DAILY 11/14/16 [History] Aspirin [Halfprin] 162 mg PO DAILY 07/21/17 [History] Mirabegron [Myrbetriq] 25 mg PO DAILY 07/21/17 [History] lamoTRIgine [Lamotrigine] 50 mg PO DAILY 07/21/17 [History] Cholecalciferol (Vitamin D3) [Vitamin D] 5,000 unit PO DAILY 03/27/19 [History] Cyanocobalamin (Vitamin B-12) [Vitamin B-12] 1,000 mcg PO DAILY 03/27/19 [History] predniSONE [Prednisone] 10 mg PO BID #9 tablet 04/04/21 [Rx] Past Medical History HEENT History: Reports: Impaired Vision Cardiovascular History: Reports: Arrhythmia, Blood Clots/VTE/DVT, High Cholesterol, Hypertension, SOB on Exertion, Other (See Below) Other Cardiovascular History: PE Respiratory History: Reports: Bronchitis, Recurrent, PE, Pneumonia, Recurrent, Sleep Apnea, SOB Other Respiratory History: PE Gastrointestinal History: Reports: Bowel Obstruction, Chronic Constipation, Diverticulosis Genitourinary History: Reports: UTI, Recurrent 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: 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 Bleeding, , Spontaneous Musculoskeletal History: Reports: Fracture, Osteoarthritis Other Musculoskeletal History: right total knee Neurological History: Reports: Cerebral Aneurysms, CVA, Migraines, TIA, Vertigo Psychiatric History: Reports: Anxiety, Depression, Panic Attack, Psych Hospitalization(s), Suicide Attempt Endocrine/Metabolic History: Reports: Obesity/BMI 30+ Hematologic History: Reports: Anemia, Blood Transfusion(s), Iron Deficiency Dermatologic History: Reports: Urticaria - Infectious Disease History Infectious Disease History: Reports: Chicken Pox, Measles - Past Surgical History Head Surgeries/Procedures: Reports: None HEENT Surgical History: Reports: Tonsillectomy Cardiovascular Surgical History: Reports: Other (See Below) Other Cardiovascular Surgeries/Procedures: angiogram Respiratory Surgical History: Reports: None GI Surgical History: Reports: None Female Surgical History: Reports: Section, Hysterectomy, Salpingo- Oophorectomy Endocrine Surgical History: Reports: None Neurological Surgical History: Reports: Other (See Below) Other Neurological Surgeries/Procedures: 5 anurisms clipped in brain. Musculoskeletal Surgical History: Reports: Carpal Tunnel, Knee Replacement, Other (See Below) Other Musculoskeletal Surgeries/Procedures:: bilateral knee replacement Dermatological Surgical History: Reports: Other (See Below) Social & Family History - Family History Family Medical History: No Pertinent Family History - Tobacco Use Tobacco Use Status *Q: Never Tobacco User Second Hand Smoke Exposure: No - Caffeine Use Caffeine Use: Reports: Coffee Other Caffeine Use: 5 to 6 cups coffee per day Caffeine Use Comment: lots of coffee - Recreational Drug Use Recreational Drug Use: No - Living Situation & Occupation Living situation: Reports: Occupation: Disabled (lives [address] ED ROS GENERAL - Review of Systems Review Of Systems: See Below Constitutional: Reports: No Symptoms HEENT: Reports: No Symptoms Respiratory: Reports: No Symptoms Cardiovascular: Reports: Chest Pain (central chest). Denies: Dyspnea on Exertion, Palpitations, Syncope GI/Abdominal: Reports: No Symptoms : Reports: No Symptoms Musculoskeletal: Reports: No Symptoms Skin: Reports: Other (sweaty at back of neck) Neurological: Reports: No Symptoms Psychiatric: Reports: Anxiety ED EXAM, GENERAL - Physical Exam Exam: See Below Exam Limited By: No Limitations General Appearance: Alert, WD/WN, No Apparent Distress, Obese Eye Exam: Bilateral Eye: Normal Inspection Ears: Normal External Exam, Normal Canal, Hearing Grossly Normal Ear Exam: Bilateral Ear: Auricle Normal, Canal Normal Nose: Normal Inspection, No Blood Throat/Mouth: Normal Inspection, Normal Lips, Normal Oropharynx, Normal Voice, No Airway Compromise Head: Atraumatic, Normocephalic Neck: Normal Inspection Respiratory/Chest: No Respiratory Distress, Lungs Clear, Normal Breath Sounds, No Accessory Muscle Use. No: Chest Non-Tender (tender over R side of sternum) Cardiovascular: Regular Rate, Rhythm, No Edema GI/Abdominal: Normal Bowel Sounds, Soft, Non-Tender, No Distention Back Exam: Normal Inspection. No: CVA Tenderness (R), CVA Tenderness (L) Extremities: Normal Inspection, Normal Range of Motion, Non-Tender, No Pedal Edema. No: Brittany's Sign Neurological: Alert, Oriented, CN II-XII Intact, Normal Cognition, No Motor/Sensory Deficits Psychiatric: Normal Affect, Normal Mood Skin Exam: Warm, Dry, Intact, Normal Color, No Rash #1 Interpretation EKG Date: 04/04/21 Time: 16:30 Rhythm: NSR Rate (Beats/Min): 75 [place]: Normal P-Wave: Present QRS: Normal ST-T: Normal QT: Normal Comparison: No Change Course - Vital Signs Last Recorded V/S: Last Vital Signs Temp 34.8 C L 04/04/21 16:45 Pulse 69 04/04/21 17:14 Resp 12 04/04/21 17:14 BP 138/85 04/04/21 17:14 Pulse Ox 97 04/04/21 17:14 - Orders/Labs/Meds Orders: Active Orders 24 hr Category Date Time Status EKG 12 Lead [EK] Routine Ther 04/04/21 16:56 Ordered Labs: Laboratory Tests 04/04/21 Range/Units 17:10 Troponin I < 0.017 (0.000-0.056) ng/mL Meds: Medications Discontinued Medications Generic Name Dose Route Start Last Admin Trade Name Meng PRN Reason Stop Dose Admin Prednisone 10 mg 04/04/21 17:45 Prednisone 10 Mg Tab PO 04/04/21 17:46 ONETIME ONE Departure - Departure Time of Disposition: 17:50 Disposition: Home, Self-Care 01 Condition: Good Clinical Impression: Costochondritis Prescriptions: predniSONE [Prednisone] 10 mg PO BID #9 tablet Instructions: Costochondritis, Emrd-[id number] Referrals: PCP,None [Primary Care Provider] - Forms: ED Department Discharge Additional Instructions: Take prednisone as directed, preferably with food. Recheck if not improving. Sepsis Event Note (ED) - Evaluation Sepsis Screening Result: No Definite Risk - Focused Exam Vital Signs: Vital Signs Temp Pulse Resp BP Pulse Ox 04/04/21 17:14 69 12 138/85 97 04/04/21 16:45 34.8 C L 75 13 143/102 H 95 04/04/21 16:29 34.8 C L 75 13 143/102 H 95 - My Orders Last 24 Hours: My Active Orders 04/04/21 16:56 EKG 12 Lead [EK] Routine - Assessment/Plan Last 24 Hours: My Active Orders 04/04/21 16:56 EKG 12 Lead [EK] Routine
[2021-04-04 17:14] VITALS: BP 138/85; PULSE 69
[2021-04-04] MEDS ORDERED: predniSONE 10 MG Tab PO ONE (17:45)
--- NOTE | 2021-04-08 15:24 | PCM.EKG ---
#1 Interpretation EKG Date: 04/04/21 Time: 16:30 Rhythm: NSR Rate (Beats/Min): 75 [place]: Normal P-Wave: Present QRS: Normal ST-T: Normal QT: Normal MO/PQ Interval: normal Comparison: No Change (compared to 09/30/18)
== END 2021-04-04 18:14 | disposition home or self-care (01) ==
LOC: JP.ED 16:23
DX: M94.0 Chondrocostal junction syndrome [Tietze] (principal); E78.00 Pure hypercholesterolemia, unspecified; I10 Essential (primary) hypertension; E66.9 Obesity, unspecified; Z68.30 Body mass index [BMI] 30.0-30.9, adult; Z86.73 Personal history of transient ischemic attack (TIA), and cerebral infarction without residual deficits; Z86.718 Personal history of other venous thrombosis and embolism; Z88.5 Allergy status to narcotic agent; Z88.4 Allergy status to anesthetic agent; Z88.1 Allergy status to other antibiotic agents; Z91.048 Other nonmedicinal substance allergy status; Z79.82 Long term (current) use of aspirin; Z79.899 Other long term (current) drug therapy
CPT/HCPCS: 36415; 84484; 93005; 99285; J7512

== ENCOUNTER 2021-11-10 16:18 | Emergency (ER) | payer MEDICARE, MEDICAID ==
[2021-11-10 16:51] VITALS: BP 148/98; PULSE 113
[2021-11-10] MEDS ORDERED: Sodium Chloride 0.9% 10 ML Syringe FLUSH PRN (17:26)
[2021-11-10] MEDS ORDERED: oxyCODONE 5 MG Tab PO ONE (17:29)
[2021-11-10] MEDS ORDERED: Sodium Chloride 0.9% 1,000 ML IV ONE (17:34)
[2021-11-10] MEDS ORDERED: Sodium Chloride 0.9% 75 ML IV SCH (18:00)
[2021-11-10] MEDS ORDERED: Iopamidol 612 MG/ML 100 ML Bottle IV SCH (18:00)
[2021-11-10 18:51] LABS: CORONAVIRUS COVID-19 NAA NEGATIVE (NEGATIVE)
[2021-11-10] MEDS ORDERED: Ondansetron 4 MG Tab.DIS PO ONE (19:56)
== END 2021-11-10 20:05 | disposition home or self-care (01) ==
LOC: JP.ED 16:18
DX: N39.0 Urinary tract infection, site not specified (principal); K57.32 Diverticulitis of large intestine without perforation or abscess without bleeding; A08.4 Viral intestinal infection, unspecified; E78.00 Pure hypercholesterolemia, unspecified; I10 Essential (primary) hypertension; E66.9 Obesity, unspecified; Z68.42 Body mass index [BMI] 45.0-49.9, adult; Z86.73 Personal history of transient ischemic attack (TIA), and cerebral infarction without residual deficits; Z79.82 Long term (current) use of aspirin; Z20.822 Contact with and (suspected) exposure to COVID-19
CPT/HCPCS: 0241U; 36415; 74177; 80048; 80076; 81001; 85025; 85610; 85730; 86140; 86850; 86900; 86901; 87086; 99284; 99284-25; A9270-GY; J3490; J7030; Q0162; Q9967

== ENCOUNTER 2022-03-22 13:45 | Emergency (ER) | payer MEDICARE, MEDICAID ==
[2022-03-22 14:10] VITALS: BP 147/73; PULSE 80
[2022-03-22] MEDS ORDERED: Diphtheria,Pertussis(Acell),Tetanus Vaccine 0.5 ML Syringe IM ONE (14:15)
== END 2022-03-22 15:42 | disposition home or self-care (01) ==
LOC: JP.ED 13:45
DX: S90.32XA Contusion of left foot, initial encounter (principal); S91.332A Puncture wound without foreign body, left foot, initial encounter; I10 Essential (primary) hypertension; E66.9 Obesity, unspecified; Z68.42 Body mass index [BMI] 45.0-49.9, adult; Z88.6 Allergy status to analgesic agent; Z88.8 Allergy status to other drugs, medicaments and biological substances; Z91.048 Other nonmedicinal substance allergy status; Z88.1 Allergy status to other antibiotic agents; Z79.899 Other long term (current) drug therapy; Z79.82 Long term (current) use of aspirin; Z86.73 Personal history of transient ischemic attack (TIA), and cerebral infarction without residual deficits; Z90.710 Acquired absence of both cervix and uterus; Z23 Encounter for immunization; W20.8XXA Other cause of strike by thrown, projected or falling object, initial encounter
CPT/HCPCS: 73630-26-LT; 73630-LT; 90471; 90715; 99281; 99283-25

== ENCOUNTER 2023-10-08 09:07 | Emergency (ER) | payer MEDICAID, MEDICARE ==
[2023-10-08 09:15] VITALS: BP 126/65; PULSE 57
[2023-10-08] MEDS ORDERED: Sodium Chloride 0.9% 10 ML Syringe FLUSH PRN (09:20)
[2023-10-08 09:35] LABS: BASOPHILS PERCENT AUTO 0.1 % (0.1-1.3); HEMATOCRIT 40.3 % (34.3-46.0); HEMOGLOBIN 13.3 g/dL (11.2-15.5); IMMATURE GRAN ABSOLUTE AUTO 0.03 K/uL (0.00-0.23); IMMATURE GRAN PERCENT AUTO 0.4 % (0.0-0.7); LYMPHOCYTES ABSOLUTE AUTO 0.68 K/uL (0.8-3.3); LYMPHOCYTES PERCENT AUTO 7.9 % (11.4-47.7); MEAN CORPUSCULAR HEMOGLOBIN 28.9 pg (31.6-35.5); MEAN CORPUSCULAR VOLUME 87.6 fL (81.4-99.0); MONOCYTES ABSOLUTE AUTO 0.45 K/uL (0.20-0.90); MONOCYTES PERCENT AUTO 5.3 % (3.3-12.6); NEUTROPHILS PERCENT AUTO 86.3 % (40.0-78.1); PLATELET COUNT,PLT 205 K/uL (130-375); WHITE BLOOD CELL COUNT,WBC 8.6 K/uL (3.2-11.0)
[2023-10-08 09:36] LABS: BASOPHILS ABSOLUTE AUTO 0.01 K/uL (0.00-0.10)
[2023-10-08 09:57] LABS: A/G RATIO 0.9 (1.2-2.2); ALANINE AMINOTRANSFERASE,ALT 21 U/L (12-78); ALBUMIN 3.2 g/dL (3.4-5.0); ALKALINE PHOSPHATASE 81 U/L (46-116); ANION GAP 11.4 mmol/L (5.0-14.0); ASPARTATE AMNIOTRANSFERASE,AST 18 U/L (15-37); BILIRUBIN TOTAL 0.5 mg/dL (0.2-1.0); BLOOD UREA NITROGEN,BUN 23 mg/dL (7-18); CALCIUM 9.3 mg/dL (8.5-10.1); CARBON DIOXIDE,CO2 27 mmol/L (21-32); CHLORIDE,CL 105 mmol/L (100-108); CREATININE 0.8 mg/dL (0.6-1.0); EST CRCL DRUG DOSING (CG) 63.01 mL/min; ESTIMATED GFR 80 mL/min (>60); GLUCOSE RANDOM 112 mg/dL (74-106); POTASSIUM,K 3.6 mmol/L (3.6-5.2); PROTEIN TOTAL,TP 6.8 g/dL (6.4-8.2); PROTHROMBIN TIME 10.3 sec (9.2-10.6); SODIUM,NA 143 mmol/L (140-148)
[2023-10-08] MEDS: Sodium Chloride 0.9% 500 ML IV ONE (10:21)
[2023-10-08] MEDS: Pantoprazole 40 MG Vial IVPUSH ONE (10:21)
== END 2023-10-08 12:28 | disposition home or self-care (01) ==
LOC: JP.ED 09:07
DX: K52.9 Noninfective gastroenteritis and colitis, unspecified (principal); K29.00 Acute gastritis without bleeding; F01.50 Vascular dementia, unspecified severity, without behavioral disturbance, psychotic disturbance, mood disturbance, and anxiety; Z79.1 Long term (current) use of non-steroidal anti-inflammatories (NSAID); Z79.899 Other long term (current) drug therapy; I10 Essential (primary) hypertension; E78.00 Pure hypercholesterolemia, unspecified; Z86.73 Personal history of transient ischemic attack (TIA), and cerebral infarction without residual deficits; Z90.49 Acquired absence of other specified parts of digestive tract; Z90.710 Acquired absence of both cervix and uterus; Z88.5 Allergy status to narcotic agent; Z91.048 Other nonmedicinal substance allergy status; Z88.1 Allergy status to other antibiotic agents
CPT/HCPCS: 36415; 80053; 85018; 85025; 85610; 85730; 86850; 86900; 86901; 96374; 99284; C9113; J7040

== ENCOUNTER 2023-10-10 17:59 | Inpatient (IN) | payer MEDICARE ==
[2023-10-10 19:47] LABS: BASOPHILS ABSOLUTE AUTO 0.05 K/uL (0.00-0.10); BASOPHILS PERCENT AUTO 0.7 % (0.1-1.3); EOSINOPHILS ABSOLUTE AUTO 0.18 K/uL (0.00-0.40); EOSINOPHILS PERCENT AUTO 2.7 % (0.0-5.4); HEMATOCRIT 32.1 % (34.3-46.0); HEMOGLOBIN 10.3 g/dL (11.2-15.5); IMMATURE GRAN PERCENT AUTO 0.3 % (0.0-0.7); LYMPHOCYTES ABSOLUTE AUTO 2.36 K/uL (0.8-3.3); MEAN CORPUSCULAR HEMOGLOBIN 28.7 pg (31.6-35.5); MEAN CORPUSCULAR HGB CONC 32.1 g/dL (31.6-35.5); MEAN CORPUSCULAR VOLUME 89.4 fL (81.4-99.0); MONOCYTES ABSOLUTE AUTO 0.46 K/uL (0.20-0.90); MONOCYTES PERCENT AUTO 6.8 % (3.3-12.6); NEUTROPHILS ABSOLUTE AUTO 3.67 K/uL (1.0-7.6); NEUTROPHILS PERCENT AUTO 54.5 % (40.0-78.1); PLATELET COUNT,PLT 184 K/uL (130-375); RED BLOOD CELL COUNT 3.59 M/uL (3.77-5.24); WHITE BLOOD CELL COUNT,WBC 6.7 K/uL (3.2-11.0)
[2023-10-10 19:49] LABS: IMMATURE GRAN ABSOLUTE AUTO 0.02 K/uL (0.00-0.23)
[2023-10-10] MEDS: Iopamidol 612 MG/ML 100 ML Bottle IV SCH (19:53)
[2023-10-10] MEDS: Sodium Chloride 0.9% 10 ML Syringe FLUSH ONE (19:53)
[2023-10-10] MEDS: Sodium Chloride 0.9% 80 ML IV SCH (19:55)
[2023-10-10 20:05] LABS: A/G RATIO 1.1 (1.2-2.2); ALANINE AMINOTRANSFERASE,ALT 24 U/L (12-78); ALBUMIN 3.2 g/dL (3.4-5.0); ALKALINE PHOSPHATASE 64 U/L (46-116); ASPARTATE AMNIOTRANSFERASE,AST 20 U/L (15-37); BILIRUBIN TOTAL 0.2 mg/dL (0.2-1.0); BLOOD UREA NITROGEN,BUN 21 mg/dL (7-18); CALCIUM 9.1 mg/dL (8.5-10.1); CARBON DIOXIDE,CO2 31 mmol/L (21-32); CHLORIDE,CL 105 mmol/L (100-108); CREATININE 0.9 mg/dL (0.6-1.0); EST CRCL DRUG DOSING (CG) 51.66 mL/min; ESTIMATED GFR 70 mL/min (>60); GLUCOSE RANDOM 95 mg/dL (74-106); POTASSIUM,K 3.3 mmol/L (3.6-5.2); PROTEIN TOTAL,TP 6.1 g/dL (6.4-8.2); SODIUM,NA 143 mmol/L (140-148)
[2023-10-10 20:07] LABS: ANION GAP 10.3 mmol/L (5.0-14.0); C-REACTIVE PROTEIN < 0.50 mg/dL (<0.50)
[2023-10-10] MEDS: Pantoprazole 40 MG Vial IVPUSH ONE (21:55)
[2023-10-10 21:58] LABS: CORONAVIRUS COVID-19 NAA NEGATIVE (NEGATIVE); INFLUENZA A NAA NEGATIVE (NEGATIVE); INFLUENZA B NAA NEGATIVE (NEGATIVE); RESPIRATORY SYNCYTIAL VIR NAA NEGATIVE (NEGATIVE)
[2023-10-10] MEDS: Sodium Chloride 0.9% 1,000 ML IV SCH ×2 (22:29→23:48)
[2023-10-10] MEDS ORDERED: Ondansetron 4 MG/2 ML SDV IV PRN (22:54)
[2023-10-10] MEDS ORDERED: Sennosides/Docusate Sodium 50-8.6 MG Tab PO PRN (22:54)
[2023-10-10] MEDS ORDERED: Magnesium Hydroxide 400 MG/5 ML Susp 30 ML Cup PO PRN (22:54)
[2023-10-10] MEDS ORDERED: Melatonin 3 MG Tab PO PRN (22:54)
[2023-10-10] MEDS ORDERED: Ondansetron 4 MG Tab.DIS PO PRN (22:54)
[2023-10-10] MEDS ORDERED: Acetaminophen 325 MG Tab PO PRN (22:54)
[2023-10-10] MEDS: Potassium Chloride 10 MEQ in Premix Bag 1 BAG IV SCH (23:49)
[2023-10-11] MEDS: traZODone 50 MG Tab PO PRN (00:05)
[2023-10-11 04:39] LABS: HEMATOCRIT 28.5 % (34.3-46.0); HEMOGLOBIN 9.3 g/dL (11.2-15.5); MEAN CORPUSCULAR HEMOGLOBIN 29.2 pg (31.6-35.5); MEAN CORPUSCULAR HGB CONC 32.6 g/dL (31.6-35.5); MEAN CORPUSCULAR VOLUME 89.3 fL (81.4-99.0); RED BLOOD CELL COUNT 3.19 M/uL (3.77-5.24); WHITE BLOOD CELL COUNT,WBC 7.7 K/uL (3.2-11.0)
[2023-10-11 05:13] LABS: CALCIUM 8.6 mg/dL (8.5-10.1); CREATININE 0.7 mg/dL (0.6-1.0); EST CRCL DRUG DOSING (CG) 72.01 mL/min; POTASSIUM,K 3.5 mmol/L (3.6-5.2)
[2023-10-11 05:25] LABS: ANION GAP 11.5 mmol/L (5.0-14.0)
[2023-10-11] MEDS ORDERED: Propofol 200 MG/20 ML SDV ONE (08:27)
[2023-10-11] MEDS ORDERED: fentaNYL 100 MCG/2 ML SDV ONE (08:27)
[2023-10-11] MEDS: Potassium Chloride 10 MEQ in Premix Bag 1 BAG IV ONE (10:13)
[2023-10-11] MEDS: DULoxetine 30 MG Cap PO SCH (11:52)
[2023-10-11] MEDS: Bisacodyl 5 MG Tab PO ONE ×2 (11:52→18:07)
[2023-10-11] MEDS: Polyethylene Glycol 3350 Powder 17 GM Packet PO SCH (11:54)
[2023-10-11] MEDS: ARIPiprazole 10 MG Tab PO SCH (11:54)
[2023-10-11] MEDS: Pravastatin 20 MG Tab PO SCH (11:55)
[2023-10-11] MEDS: Pantoprazole 40 MG Vial IV SCH (11:55)
[2023-10-11] MEDS: Multivitamins with Iron/Calcium/Folic Acid/Minerals Tab PO SCH (11:56)
[2023-10-11] MEDS: amLODIPine 5 MG Tab PO SCH (12:12)
[2023-10-11] MEDS: Polyethylene Glycol 3350 Powder 238 GM Bot PO ONE (14:55)
[2023-10-11 19:19] LABS: HEMATOCRIT 32.5 % (34.3-46.0); HEMOGLOBIN 10.7 g/dL (11.2-15.5); MEAN CORPUSCULAR HEMOGLOBIN 29.4 pg (31.6-35.5); MEAN CORPUSCULAR HGB CONC 32.9 g/dL (31.6-35.5); MEAN CORPUSCULAR VOLUME 89.3 fL (81.4-99.0); RED BLOOD CELL COUNT 3.64 M/uL (3.77-5.24); WHITE BLOOD CELL COUNT,WBC 7.1 K/uL (3.2-11.0)
[2023-10-11] MEDS: Donepezil 10 MG Tab PO SCH (21:23)
[2023-10-12 04:30] LABS: HEMATOCRIT 28.3 % (34.3-46.0); HEMOGLOBIN 9.2 g/dL (11.2-15.5); MEAN CORPUSCULAR HEMOGLOBIN 29.1 pg (31.6-35.5); MEAN CORPUSCULAR HGB CONC 32.5 g/dL (31.6-35.5); MEAN CORPUSCULAR VOLUME 89.6 fL (81.4-99.0); RED BLOOD CELL COUNT 3.16 M/uL (3.77-5.24); WHITE BLOOD CELL COUNT,WBC 5.8 K/uL (3.2-11.0)
[2023-10-12 08:25] LABS: ANION GAP 12.1 mmol/L (5.0-14.0); CALCIUM 8.6 mg/dL (8.5-10.1); CREATININE 0.6 mg/dL (0.6-1.0); EST CRCL DRUG DOSING (CG) 84.01 mL/min; MAGNESIUM 1.8 mg/dL (1.8-2.4); PHOSPHORUS 2.6 mg/dL (2.5-4.9); POTASSIUM,K 3.1 mmol/L (3.6-5.2)
[2023-10-12] MEDS: Potassium Chloride 10 MEQ in Premix Bag 1 BAG IV SCH (10:12)
[2023-10-12] MEDS ORDERED: fentaNYL 100 MCG/2 ML SDV ONE (10:53)
[2023-10-12] MEDS ORDERED: Propofol 200 MG/20 ML SDV ONE (10:53)
[2023-10-12] MEDS: Potassium Chloride 20 MEQ Tab.ER PO ONE (20:00)
[2023-10-12] MEDS: Pantoprazole 40 MG Tab.CR PO SCH (20:01)
[2023-10-13 06:19] LABS: HEMATOCRIT 30.1 % (34.3-46.0); HEMOGLOBIN 9.9 g/dL (11.2-15.5); MEAN CORPUSCULAR HEMOGLOBIN 29.2 pg (31.6-35.5); MEAN CORPUSCULAR HGB CONC 32.9 g/dL (31.6-35.5); MEAN CORPUSCULAR VOLUME 88.8 fL (81.4-99.0); RED BLOOD CELL COUNT 3.39 M/uL (3.77-5.24); WHITE BLOOD CELL COUNT,WBC 6.1 K/uL (3.2-11.0)
[2023-10-13 06:36] LABS: CREATININE 0.7 mg/dL (0.6-1.0); EST CRCL DRUG DOSING (CG) 72.01 mL/min; POTASSIUM,K 3.3 mmol/L (3.6-5.2)
[2023-10-13 06:38] LABS: ANION GAP 12.3 mmol/L (5.0-14.0)
[2023-10-13] MEDS: Aspirin 81 MG Tab.EC PO SCH (09:05)
[2023-10-13] MEDS: Potassium Chloride 20 MEQ Tab.ER PO ONE ×2 (09:10→20:46)
[2023-10-13] MEDS: hydrOXYzine HCl 25 MG Tab PO ONE (12:49)
[2023-10-13] MEDS: Potassium Chloride 20 MEQ Tab.ER ONE (20:48)
[2023-10-14] MEDS: Potassium Chloride 20 MEQ Tab.ER PO ONE (09:46)
[2023-10-14 10:44] VITALS: BP 124/75; PULSE 77
== END 2023-10-14 13:25 | disposition home or self-care (01) | DRG 378 ==
LOC: JP.ED 17:59 → JP.MS 22:01
PROVIDERS: ADMIT Registered Nurse; ATTEND Hospitalist
PROC: 0DJ08ZZ Inspection of Upper Intestinal Tract, Via Natural or Artificial Opening Endoscopic (ICD-10-PCS; principal; 2023-10-11 07:00)
DX: K22.2 Esophageal obstruction (principal); K92.2 Gastrointestinal hemorrhage, unspecified; D62 Acute posthemorrhagic anemia; F01.53 Vascular dementia, unspecified severity, with mood disturbance; Z86.73 Personal history of transient ischemic attack (TIA), and cerebral infarction without residual deficits; F01.54 Vascular dementia, unspecified severity, with anxiety; Z68.41 Body mass index [BMI] 40.0-44.9, adult; I69.398 Other sequelae of cerebral infarction; Z91.048 Other nonmedicinal substance allergy status; Z88.1 Allergy status to other antibiotic agents; Z88.4 Allergy status to anesthetic agent; Z68.43 Body mass index [BMI] 50.0-59.9, adult; E87.6 Hypokalemia; E78.00 Pure hypercholesterolemia, unspecified; Z96.653 Presence of artificial knee joint, bilateral; I10 Essential (primary) hypertension; Z66 Do not resuscitate; G47.30 Sleep apnea, unspecified; K59.09 Other constipation; K20.90 Esophagitis, unspecified without bleeding; M19.90 Unspecified osteoarthritis, unspecified site; G43.909 Migraine, unspecified, not intractable, without status migrainosus; E66.9 Obesity, unspecified; D50.9 Iron deficiency anemia, unspecified; Z90.89 Acquired absence of other organs; Z90.710 Acquired absence of both cervix and uterus; Z90.721 Acquired absence of ovaries, unilateral; Z88.5 Allergy status to narcotic agent; Z88.0 Allergy status to penicillin; Z79.01 Long term (current) use of anticoagulants; Z79.899 Other long term (current) drug therapy; Z87.440 Personal history of urinary (tract) infections; S90.32XS Contusion of left foot, sequela; Z79.82 Long term (current) use of aspirin; Z86.711 Personal history of pulmonary embolism; Z87.01 Personal history of pneumonia (recurrent); Z79.02 Long term (current) use of antithrombotics/antiplatelets; Z86.718 Personal history of other venous thrombosis and embolism; Z88.8 Allergy status to other drugs, medicaments and biological substances
CPT/HCPCS: 0241U; 36415; 74177; 80048; 80053; 83690; 83735; 84100; 84132; 85018; 85025; 85027; 86140; 93005; 93010; 96374; 99222; 99232; 99238; 99285; A9270-GY; C9113; J2704; J3010; J3480; J3490; J7030; Q9967

== ENCOUNTER 2023-11-12 17:30 | Emergency (ER) | payer MEDICARE ==
[2023-11-12 18:29] LABS: BASOPHILS ABSOLUTE AUTO 0.07 K/uL (0.00-0.10); BASOPHILS PERCENT AUTO 0.9 % (0.1-1.3); EOSINOPHILS ABSOLUTE AUTO 0.14 K/uL (0.00-0.40); EOSINOPHILS PERCENT AUTO 1.8 % (0.0-5.4); HEMATOCRIT 36.9 % (34.3-46.0); HEMOGLOBIN 11.9 g/dL (11.2-15.5); IMMATURE GRAN PERCENT AUTO 0.3 % (0.0-0.7); LYMPHOCYTES ABSOLUTE AUTO 2.22 K/uL (0.8-3.3); LYMPHOCYTES PERCENT AUTO 27.9 % (11.4-47.7); MEAN CORPUSCULAR HEMOGLOBIN 28.3 pg (31.6-35.5); MEAN CORPUSCULAR HGB CONC 32.2 g/dL (31.6-35.5); MEAN CORPUSCULAR VOLUME 87.9 fL (81.4-99.0); MONOCYTES ABSOLUTE AUTO 0.48 K/uL (0.20-0.90); NEUTROPHILS ABSOLUTE AUTO 5.04 K/uL (1.0-7.6); NEUTROPHILS PERCENT AUTO 63.1 % (40.0-78.1); PLATELET COUNT,PLT 225 K/uL (130-375)
[2023-11-12 18:30] LABS: IMMATURE GRAN ABSOLUTE AUTO 0.02 K/uL (0.00-0.23)
[2023-11-12 18:57] LABS: A/G RATIO 1.1 (1.2-2.2); ALANINE AMINOTRANSFERASE,ALT 19 U/L (12-78); ALBUMIN 3.5 g/dL (3.4-5.0); ALKALINE PHOSPHATASE 97 U/L (46-116); ANION GAP 10.6 mmol/L (5.0-14.0); ASPARTATE AMNIOTRANSFERASE,AST 17 U/L (15-37); BILIRUBIN TOTAL 0.2 mg/dL (0.2-1.0); BLOOD UREA NITROGEN,BUN 15 mg/dL (7-18); CALCIUM 9.8 mg/dL (8.5-10.1); CARBON DIOXIDE,CO2 28 mmol/L (21-32); CHLORIDE,CL 106 mmol/L (100-108); CREATININE 0.8 mg/dL (0.6-1.0); EST CRCL DRUG DOSING (CG) 63.01 mL/min; ESTIMATED GFR 80 mL/min (>60); GLUCOSE RANDOM 91 mg/dL (74-106); MAGNESIUM 2.1 mg/dL (1.8-2.4); POTASSIUM,K 4.1 mmol/L (3.6-5.2); PRO B-TYPE NATRIUR PEPT,BNPPRO 169 pg/mL (5-125); PROTEIN TOTAL,TP 6.7 g/dL (6.4-8.2); SODIUM,NA 145 mmol/L (140-148); TROPONIN I HIGH SENSITIVITY 6.6 pg/mL (<=60.3)
[2023-11-12 20:04] VITALS: BP 117/60; PULSE 53
== END 2023-11-12 21:23 | disposition home or self-care (01) ==
LOC: JP.ED 17:30
DX: R00.2 Palpitations (principal); I10 Essential (primary) hypertension; R06.02 Shortness of breath; E78.00 Pure hypercholesterolemia, unspecified; E66.9 Obesity, unspecified; Z68.45 Body mass index [BMI] 70 or greater, adult; Z88.5 Allergy status to narcotic agent; Z88.8 Allergy status to other drugs, medicaments and biological substances; Z91.048 Other nonmedicinal substance allergy status; Z79.899 Other long term (current) drug therapy; Z90.710 Acquired absence of both cervix and uterus; Z87.891 Personal history of nicotine dependence
CPT/HCPCS: 36415; 71045; 71045-26; 80053; 83735; 83880; 84484; 85025; 93005; 93010; 99283; 99285

== ENCOUNTER 2024-04-07 17:05 | Emergency (ER) | payer MEDICARE ==
[2024-04-07 17:28] LABS: BASOPHILS ABSOLUTE AUTO 0.05 K/uL (0.00-0.10); BASOPHILS PERCENT AUTO 0.7 % (0.1-1.3); EOSINOPHILS PERCENT AUTO 2.8 % (0.0-5.4); HEMATOCRIT 37.7 % (34.3-46.0); HEMOGLOBIN 12.4 g/dL (11.2-15.5); IMMATURE GRAN ABSOLUTE AUTO 0.02 K/uL (0.00-0.23); IMMATURE GRAN PERCENT AUTO 0.3 % (0.0-0.7); LYMPHOCYTES ABSOLUTE AUTO 2.42 K/uL (0.8-3.3); LYMPHOCYTES PERCENT AUTO 33.4 % (11.4-47.7); MEAN CORPUSCULAR HEMOGLOBIN 27.8 pg (31.6-35.5); MEAN CORPUSCULAR HGB CONC 32.9 g/dL (31.6-35.5); MEAN CORPUSCULAR VOLUME 84.5 fL (81.4-99.0); MONOCYTES ABSOLUTE AUTO 0.51 K/uL (0.20-0.90); NEUTROPHILS ABSOLUTE AUTO 4.05 K/uL (1.0-7.6); NEUTROPHILS PERCENT AUTO 55.8 % (40.0-78.1); PLATELET COUNT,PLT 193 K/uL (130-375); RED BLOOD CELL COUNT 4.46 M/uL (3.77-5.24); WHITE BLOOD CELL COUNT,WBC 7.3 K/uL (3.2-11.0)
[2024-04-07 17:49] LABS: ALANINE AMINOTRANSFERASE,ALT 17 U/L (12-78); ALBUMIN 3.2 g/dL (3.4-5.0); ALKALINE PHOSPHATASE 100 U/L (46-116); ANION GAP 5.5 mmol/L (5.0-14.0); ASPARTATE AMNIOTRANSFERASE,AST 13 U/L (15-37); BILIRUBIN TOTAL 0.2 mg/dL (0.2-1.0); BLOOD UREA NITROGEN,BUN 12 mg/dL (7-18); CARBON DIOXIDE,CO2 31 mmol/L (21-32); CHLORIDE,CL 104 mmol/L (100-108); CREATININE 0.8 mg/dL (0.6-1.0); ESTIMATED GFR 80 mL/min (>60); GLUCOSE RANDOM 93 mg/dL (74-106); POTASSIUM,K 3.9 mmol/L (3.6-5.2); PROTEIN TOTAL,TP 6.3 g/dL (6.4-8.2); SODIUM,NA 140 mmol/L (140-148)
[2024-04-07 18:05] LABS: AMPHETAMINES SCREEN, URINE NEGATIVE (NEGATIVE); BARBITURATE SCREEN,URINE NEGATIVE (NEGATIVE); BENZODIAZEPINES SCREEN,URINE NEGATIVE (NEGATIVE); METHADONE SCREEN, URINE NEGATIVE (NEGATIVE); METHAMPHETAMINES SCREEN, URINE NEGATIVE (NEGATIVE); OXYCODONE SCREEN,URINE NEGATIVE (NEGATIVE); PROPOXYPHENE SCREEN,URINE NEGATIVE (NEGATIVE); THC SCREEN,URINE 50 NG/ML NEGATIVE (NEGATIVE)
[2024-04-07 22:22] VITALS: BP 127/63; PULSE 70
== END 2024-04-07 22:24 ==
LOC: JP.ED 17:05
DX: F32.A Depression, unspecified (principal); T50.911A Poisoning by multiple unspecified drugs, medicaments and biological substances, accidental (unintentional), initial encounter; I10 Essential (primary) hypertension; E78.00 Pure hypercholesterolemia, unspecified; E66.9 Obesity, unspecified; Z88.5 Allergy status to narcotic agent; Z88.8 Allergy status to other drugs, medicaments and biological substances; Z91.048 Other nonmedicinal substance allergy status; Z86.16 Personal history of COVID-19; Z90.710 Acquired absence of both cervix and uterus; Z68.42 Body mass index [BMI] 45.0-49.9, adult
CPT/HCPCS: 36415; 80053; 80143; 80179; 80305-QW; 80307; 84443; 85025; 99285

== ENCOUNTER 2024-08-22 22:05 | Emergency (ER) | payer MEDICARE ==
[2024-08-22 22:52] LABS: BASOPHILS ABSOLUTE AUTO 0.07 K/uL (0.00-0.10); BASOPHILS PERCENT AUTO 0.8 % (0.1-1.3); EOSINOPHILS ABSOLUTE AUTO 0.22 K/uL (0.00-0.40); EOSINOPHILS PERCENT AUTO 2.6 % (0.0-5.4); HEMATOCRIT 42.1 % (34.3-46.0); HEMOGLOBIN 13.8 g/dL (11.2-15.5); IMMATURE GRAN PERCENT AUTO 0.2 % (0.0-0.7); LYMPHOCYTES ABSOLUTE AUTO 2.95 K/uL (0.8-3.3); LYMPHOCYTES PERCENT AUTO 34.9 % (11.4-47.7); MEAN CORPUSCULAR HEMOGLOBIN 28.9 pg (31.6-35.5); MEAN CORPUSCULAR HGB CONC 32.8 g/dL (31.6-35.5); MEAN CORPUSCULAR VOLUME 88.1 fL (81.4-99.0); MONOCYTES ABSOLUTE AUTO 0.56 K/uL (0.20-0.90); MONOCYTES PERCENT AUTO 6.6 % (3.3-12.6); NEUTROPHILS ABSOLUTE AUTO 4.63 K/uL (1.0-7.6); NEUTROPHILS PERCENT AUTO 54.9 % (40.0-78.1); PLATELET COUNT,PLT 182 K/uL (130-375); RED BLOOD CELL COUNT 4.78 M/uL (3.77-5.24); WHITE BLOOD CELL COUNT,WBC 8.5 K/uL (3.2-11.0)
[2024-08-22 22:55] LABS: IMMATURE GRAN ABSOLUTE AUTO 0.02 K/uL (0.00-0.23)
[2024-08-22 23:04] LABS: AMPHETAMINES SCREEN, URINE NEGATIVE (NEGATIVE); BARBITURATE SCREEN,URINE NEGATIVE (NEGATIVE); BENZODIAZEPINES SCREEN,URINE NEGATIVE (NEGATIVE); METHADONE SCREEN, URINE NEGATIVE (NEGATIVE); METHAMPHETAMINES SCREEN, URINE NEGATIVE (NEGATIVE); OXYCODONE SCREEN,URINE NEGATIVE (NEGATIVE); PROPOXYPHENE SCREEN,URINE NEGATIVE (NEGATIVE); THC SCREEN,URINE 50 NG/ML NEGATIVE (NEGATIVE)
[2024-08-22 23:12] LABS: A/G RATIO 1.1 (1.2-2.2); ALANINE AMINOTRANSFERASE,ALT 16 U/L (12-78); ALBUMIN 3.6 g/dL (3.4-5.0); ALKALINE PHOSPHATASE 104 U/L (46-116); ANION GAP 6.6 mmol/L (5.0-14.0); ASPARTATE AMNIOTRANSFERASE,AST 15 U/L (15-37); BILIRUBIN TOTAL 0.2 mg/dL (0.2-1.0); BLOOD UREA NITROGEN,BUN 16 mg/dL (7-18); CALCIUM 9.6 mg/dL (8.5-10.1); CARBON DIOXIDE,CO2 31 mmol/L (21-32); CHLORIDE,CL 103 mmol/L (100-108); CREATININE 0.9 mg/dL (0.6-1.0); EST CRCL DRUG DOSING (CG) 53.09 mL/min; ESTIMATED GFR 69 mL/min (>60); GLUCOSE RANDOM 97 mg/dL (74-106); POTASSIUM,K 3.8 mmol/L (3.6-5.2); SODIUM,NA 141 mmol/L (140-148)
[2024-08-23 07:56] LABS: APPEARANCE,URINE CLEAR (CLEAR); BILIRUBIN,URINE NEGATIVE (NEGATIVE); COLOR,URINE YELLOW (YELLOW); GLUCOSE,URINE NEGATIVE (NEGATIVE); KETONES,URINE NEGATIVE (NEGATIVE); LEUKOCYTE ESTERASE,URINE NEGATIVE (NEGATIVE); NITRITE,URINE NEGATIVE (NEGATIVE); OCCULT BLOOD,URINE NEGATIVE (NEGATIVE); PH,URINE 5.5 (5.0-8.0); PROTEIN,URINE NEGATIVE (NEGATIVE); UROBILINOGEN,URINE 0.2 EU/dL (0.2-1.0)
[2024-08-23 08:04] LABS: BACTERIA,URINE RARE; EPITHELIAL CELLS,URINE FEW; RBC,URINE 0-5 (0-5); WBC,URINE 0-5 (0-5)
[2024-08-23] MEDS ORDERED: Ondansetron 4 MG Tab.DIS PO PRN (08:04)
[2024-08-23] MEDS ORDERED: Acetaminophen 325 MG Tab PO PRN (08:04)
[2024-08-23 08:05] LABS: AMORPHOUS SEDIMENT,URINE NOT SEEN; MUCUS,URINE NOT SEEN
[2024-08-23 08:19] VITALS: PULSE 60
[2024-08-23] MEDS: Memantine 5 MG Tab PO SCH (08:39)
[2024-08-23] MEDS: ARIPiprazole 10 MG Tab PO SCH (08:39)
[2024-08-23] MEDS: amLODIPine 5 MG Tab PO SCH (08:40)
[2024-08-23 08:41] VITALS: BP 153/100
[2024-08-23] MEDS: Pravastatin 20 MG Tab PO SCH (08:41)
[2024-08-23] MEDS: Carbidopa/Levodopa 25-100 MG Tab PO SCH (08:41)
[2024-08-23] MEDS: Pantoprazole 40 MG Tab.CR PO SCH (08:41)
[2024-08-23] MEDS ORDERED: ARIPiprazole 10 MG Tab PO SCH (09:00)
[2024-08-23] MEDS: hydrOXYzine HCl 25 MG Tab PO PRN (10:21)
[2024-08-23] MEDS ORDERED: Pantoprazole 40 MG Delayed-Release Granules 1 Packet PO SCH (16:30)
[2024-08-23] MEDS ORDERED: Prazosin 1 MG Cap PO SCH (21:00)
[2024-08-23] MEDS ORDERED: traZODone 50 MG Tab PO SCH (21:00)
[2024-08-23] MEDS ORDERED: DULoxetine 30 MG Cap PO SCH (21:00)
[2024-08-23] MEDS ORDERED: Donepezil 10 MG Tab PO SCH (21:00)
== END 2024-08-23 14:24 | disposition home or self-care (01) ==
LOC: JP.ED 22:05
DX: R45.851 Suicidal ideations (principal); I10 Essential (primary) hypertension; E78.00 Pure hypercholesterolemia, unspecified; E66.9 Obesity, unspecified; Z68.43 Body mass index [BMI] 50.0-59.9, adult; Z90.710 Acquired absence of both cervix and uterus; Z96.653 Presence of artificial knee joint, bilateral; Z88.5 Allergy status to narcotic agent; Z88.1 Allergy status to other antibiotic agents; Z88.4 Allergy status to anesthetic agent; Z88.8 Allergy status to other drugs, medicaments and biological substances; Z91.048 Other nonmedicinal substance allergy status; Z79.899 Other long term (current) drug therapy
CPT/HCPCS: 36415; 80053; 80305; 80307; 81001; 84439; 84443; 85025; 93005; 99285; A9270; U0002; 93010; 99284

== ENCOUNTER 2025-01-02 18:06 | Emergency (ER) | payer MEDICARE ==
[2025-01-02 20:36] LABS: BASOPHILS ABSOLUTE AUTO 0.08 K/uL (0.00-0.10); BASOPHILS PERCENT AUTO 0.8 % (0.1-1.3); EOSINOPHILS ABSOLUTE AUTO 0.13 K/uL (0.00-0.40); EOSINOPHILS PERCENT AUTO 1.3 % (0.0-5.4); HEMATOCRIT 41.1 % (34.3-46.0); HEMOGLOBIN 13.3 g/dL (11.2-15.5); IMMATURE GRAN ABSOLUTE AUTO 0.04 K/uL (0.00-0.23); IMMATURE GRAN PERCENT AUTO 0.4 % (0.0-0.7); LYMPHOCYTES ABSOLUTE AUTO 2.83 K/uL (0.8-3.3); LYMPHOCYTES PERCENT AUTO 28.1 % (11.4-47.7); MEAN CORPUSCULAR HEMOGLOBIN 29.4 pg (31.6-35.5); MEAN CORPUSCULAR HGB CONC 32.4 g/dL (31.6-35.5); MEAN CORPUSCULAR VOLUME 90.9 fL (81.4-99.0); MONOCYTES ABSOLUTE AUTO 0.71 K/uL (0.20-0.90); MONOCYTES PERCENT AUTO 7.1 % (3.3-12.6); NEUTROPHILS ABSOLUTE AUTO 6.28 K/uL (1.0-7.6); NEUTROPHILS PERCENT AUTO 62.3 % (40.0-78.1); PLATELET COUNT,PLT 190 K/uL (130-375); RED BLOOD CELL COUNT 4.52 M/uL (3.77-5.24); WHITE BLOOD CELL COUNT,WBC 10.1 K/uL (3.2-11.0)
[2025-01-02 21:08] LABS: A/G RATIO 1.1 (1.2-2.2); ALANINE AMINOTRANSFERASE,ALT 16 U/L (12-78); ALBUMIN 3.5 g/dL (3.4-5.0); ALKALINE PHOSPHATASE 109 U/L (46-116); ANION GAP 10.1 mmol/L (5.0-14.0); ASPARTATE AMNIOTRANSFERASE,AST 19 U/L (15-37); BILIRUBIN TOTAL 0.3 mg/dL (0.2-1.0); BLOOD UREA NITROGEN,BUN 12 mg/dL (7-18); CALCIUM 9.7 mg/dL (8.5-10.1); CARBON DIOXIDE,CO2 29 mmol/L (21-32); CHLORIDE,CL 103 mmol/L (100-108); CREATININE 0.9 mg/dL (0.6-1.0); EST CRCL DRUG DOSING (CG) 48.11 mL/min; ESTIMATED GFR 69 mL/min (>60); GLUCOSE RANDOM 102 mg/dL (74-106); PROTEIN TOTAL,TP 6.6 g/dL (6.4-8.2); SODIUM,NA 142 mmol/L (140-148)
[2025-01-02 21:14] LABS: APPEARANCE,URINE SLIGHTLY CLOUDY (CLEAR); BILIRUBIN,URINE NEGATIVE (NEGATIVE); COLOR,URINE YELLOW (YELLOW); GLUCOSE,URINE NEGATIVE (NEGATIVE); KETONES,URINE NEGATIVE (NEGATIVE); LEUKOCYTE ESTERASE,URINE NEGATIVE (NEGATIVE); NITRITE,URINE NEGATIVE (NEGATIVE); OCCULT BLOOD,URINE NEGATIVE (NEGATIVE); PROTEIN,URINE NEGATIVE (NEGATIVE); UROBILINOGEN,URINE 0.2 EU/dL (0.2-1.0)
[2025-01-02 21:23] LABS: RBC,URINE 0-5 (0-5); WBC,URINE 0-5 (0-5)
[2025-01-02 21:24] LABS: AMORPHOUS SEDIMENT,URINE FEW; BACTERIA,URINE FEW; EPITHELIAL CELLS,URINE MODERATE; MUCUS,URINE NOT SEEN
[2025-01-02] MEDS: Ketorolac 30 MG/ML SDV IVPUSH ONE (21:53)
[2025-01-02] MEDS: Sodium Chloride 0.9% 10 ML Syringe FLUSH ONE (22:20)
[2025-01-02] MEDS: Sodium Chloride 0.9% 100 ML IV SCH (22:20)
[2025-01-02] MEDS: Iopamidol 755 Mg/ML 100 ML Bottle IV SCH (22:20)
[2025-01-03 00:15] VITALS: BP 124/79; PULSE 82
== END 2025-01-03 00:10 | disposition home or self-care (01) ==
LOC: JP.ED 18:06
DX: B34.9 Viral infection, unspecified (principal); I10 Essential (primary) hypertension; E78.00 Pure hypercholesterolemia, unspecified; E66.9 Obesity, unspecified; Z88.5 Allergy status to narcotic agent; Z88.8 Allergy status to other drugs, medicaments and biological substances; Z88.4 Allergy status to anesthetic agent; Z79.899 Other long term (current) drug therapy; Z68.43 Body mass index [BMI] 50.0-59.9, adult
CPT/HCPCS: 36415; 71275; 80053; 81001; 82550; 83605; 85025; 85379; 96374; 99284; J1885; Q9967; U0002

== ENCOUNTER 2025-04-12 09:02 | Emergency (ER) | payer MEDICARE ==
[2025-04-12 09:52] LABS: BASOPHILS ABSOLUTE AUTO 0.05 K/uL (0.00-0.10); BASOPHILS PERCENT AUTO 0.8 % (0.1-1.3); EOSINOPHILS ABSOLUTE AUTO 0.10 K/uL (0.00-0.40); EOSINOPHILS PERCENT AUTO 1.6 % (0.0-5.4); IMMATURE GRAN PERCENT AUTO 0.3 % (0.0-0.7); LYMPHOCYTES ABSOLUTE AUTO 1.58 K/uL (0.8-3.3); LYMPHOCYTES PERCENT AUTO 24.6 % (11.4-47.7); MONOCYTES ABSOLUTE AUTO 0.34 K/uL (0.20-0.90); MONOCYTES PERCENT AUTO 5.3 % (3.3-12.6); NEUTROPHILS ABSOLUTE AUTO 4.33 K/uL (1.0-7.6); NEUTROPHILS PERCENT AUTO 67.4 % (40.0-78.1); PLATELET COUNT,PLT 113 K/uL (130-375); RED BLOOD CELL COUNT 4.67 M/uL (3.77-5.24); WHITE BLOOD CELL COUNT,WBC 6.4 K/uL (3.2-11.0)
[2025-04-12 10:06] LABS: APPEARANCE,URINE CLEAR (CLEAR); GLUCOSE,URINE NEGATIVE (NEGATIVE); OCCULT BLOOD,URINE NEGATIVE (NEGATIVE)
[2025-04-12 10:15] LABS: A/G RATIO 1.1 (1.2-2.2); ALANINE AMINOTRANSFERASE,ALT 15 U/L (12-78); ASPARTATE AMNIOTRANSFERASE,AST 18 U/L (15-37); BILIRUBIN TOTAL 0.3 mg/dL (0.2-1.0); BLOOD UREA NITROGEN,BUN 8 mg/dL (7-18); CARBON DIOXIDE,CO2 32 mmol/L (21-32); CHLORIDE,CL 105 mmol/L (100-108); CREATININE 0.7 mg/dL (0.6-1.0); EST CRCL DRUG DOSING (CG) 64.58 mL/min; ESTIMATED GFR 93 mL/min (>60); GLUCOSE RANDOM 120 mg/dL (74-106); POTASSIUM,K 3.7 mmol/L (3.6-5.2); PROTEIN TOTAL,TP 6.5 g/dL (6.4-8.2); SODIUM,NA 142 mmol/L (140-148)
[2025-04-12 10:22] LABS: IMMATURE GRAN ABSOLUTE AUTO 0.02 K/uL (0.00-0.23)
[2025-04-12 10:27] LABS: SQUAMOUS EPITHELIAL CELLS,UR RARE /HPF; UROTHELIAL CELLS,URINE NOT SEEN /HPF
[2025-04-12 12:09] VITALS: BP 147/82; PULSE 75
== END 2025-04-12 12:32 | disposition home or self-care (01) ==
LOC: JP.ED 09:02
DX: R29.898 Other symptoms and signs involving the musculoskeletal system (principal); I10 Essential (primary) hypertension; E78.00 Pure hypercholesterolemia, unspecified; Z88.5 Allergy status to narcotic agent; Z91.048 Other nonmedicinal substance allergy status; Z88.1 Allergy status to other antibiotic agents; Z79.899 Other long term (current) drug therapy; Z86.73 Personal history of transient ischemic attack (TIA), and cerebral infarction without residual deficits
CPT/HCPCS: 36415; 70450; 70450-26; 80053; 81001; 85025; 93005; 99285; C1758

== ENCOUNTER 2025-04-30 05:48 | Emergency (ER) | payer MEDICARE ==
[2025-04-30 05:55] VITALS: BP 139/88; PULSE 71
[2025-04-30 06:05] LABS: BASOPHILS ABSOLUTE AUTO 0.07 K/uL (0.00-0.10); BASOPHILS PERCENT AUTO 1.0 % (0.1-1.3); EOSINOPHILS ABSOLUTE AUTO 0.24 K/uL (0.00-0.40); EOSINOPHILS PERCENT AUTO 3.3 % (0.0-5.4); IMMATURE GRAN PERCENT AUTO 0.3 % (0.0-0.7); LYMPHOCYTES ABSOLUTE AUTO 2.02 K/uL (0.8-3.3); LYMPHOCYTES PERCENT AUTO 27.7 % (11.4-47.7); MONOCYTES ABSOLUTE AUTO 0.51 K/uL (0.20-0.90); MONOCYTES PERCENT AUTO 7.0 % (3.3-12.6); NEUTROPHILS ABSOLUTE AUTO 4.44 K/uL (1.0-7.6); NEUTROPHILS PERCENT AUTO 60.7 % (40.0-78.1); PLATELET COUNT,PLT 187 K/uL (130-375); RED BLOOD CELL COUNT 4.66 M/uL (3.77-5.24); WHITE BLOOD CELL COUNT,WBC 7.3 K/uL (3.2-11.0)
[2025-04-30 06:10] LABS: IMMATURE GRAN ABSOLUTE AUTO 0.02 K/uL (0.00-0.23)
[2025-04-30 06:20] LABS: BLOOD UREA NITROGEN,BUN 8.0 mg/dL (7-18); CARBON DIOXIDE,CO2 28.0 mmol/L (21-32); CHLORIDE,CL 105.0 mmol/L (100-108); CREATININE 0.6 mg/dL (0.6-1.0); EST CRCL DRUG DOSING (CG) 72.17 mL/min; ESTIMATED GFR 97.0 mL/min (>60); GLUCOSE RANDOM 113.0 mg/dL (74-106); POTASSIUM,K 3.4 mmol/L (3.6-5.2); SODIUM,NA 142.0 mmol/L (140-148)
[2025-04-30 07:42] LABS: APPEARANCE,URINE CLEAR (CLEAR); GLUCOSE,URINE NEGATIVE (NEGATIVE); OCCULT BLOOD,URINE NEGATIVE (NEGATIVE)
== END 2025-04-30 09:10 | disposition home or self-care (01) ==
LOC: JP.ED 05:48
DX: R35.0 Frequency of micturition (principal); I10 Essential (primary) hypertension; E78.00 Pure hypercholesterolemia, unspecified; E66.9 Obesity, unspecified; Z68.43 Body mass index [BMI] 50.0-59.9, adult; Z90.710 Acquired absence of both cervix and uterus; Z88.5 Allergy status to narcotic agent; Z88.1 Allergy status to other antibiotic agents; Z88.4 Allergy status to anesthetic agent; Z88.8 Allergy status to other drugs, medicaments and biological substances; Z91.048 Other nonmedicinal substance allergy status; Z79.899 Other long term (current) drug therapy
CPT/HCPCS: 36415; 80048; 81003; 85025; 99283